=== PATIENT | male | born 1960 | race Caucasian/White ===

== ENCOUNTER → 2016-08-11 | Outpatient (CLI) | payer MEDICARE, MEDICAID ==
[~2016-08-11] MED LIST: ALPR2TAB2 PO; FLOMAX PO; LEVOTYROXINE; OME40GT
[2016-08-11 11:45] VITALS: BP 118/92
[2016-08-11 12:25] VITALS: BP 122/88
== END | disposition home or self-care (01) ==
LOC: CHF HDHVI 11:48
PROVIDERS: ATTEND Internal Medicine Cardiovascular Disease
DX: K85.90 Acute pancreatitis without necrosis or infection, unspecified (principal); I12.9 Hypertensive chronic kidney disease with stage 1 through stage 4 chronic kidney disease, or unspecified chronic kidney disease; E78.00 Pure hypercholesterolemia, unspecified; N18.3 Chronic kidney disease, stage 3 (moderate); E55.9 Vitamin D deficiency, unspecified
CPT/HCPCS: 82962; 99195; G0463

== ENCOUNTER → 2016-08-12 | Outpatient (CLI) | payer MEDICARE, MEDICAID ==
[2016-08-12 10:25] VITALS: BP 129/86
[2016-08-12 11:45] VITALS: BP 124/90
== END | disposition home or self-care (01) ==
LOC: CHF HDHVI 09:37
PROVIDERS: ATTEND Internal Medicine Cardiovascular Disease
DX: K85.90 Acute pancreatitis without necrosis or infection, unspecified (principal); I10 Essential (primary) hypertension
CPT/HCPCS: 99195; G0463

== ENCOUNTER → 2016-08-20 | Outpatient (CLI) | payer MEDICARE, MEDICAID ==
[2016-08-20 09:10] VITALS: BP 119/75
[2016-08-20 09:30] VITALS: BP 120/76
[2016-08-20 12:29] LABS: Basophils # (auto) 0 uL; Basophils % (auto) 0.3 % (0.0-2.0); Eosinophils # (auto) 0.3 uL; Eosinophils % (auto) 4.9 % (0.0-7.0); Hematocrit 48.9 % (41.0-53.0); Hemoglobin 16.4 g/dL (13.5-17.5); Lymphocytes # (auto) 1.5 uL; Lymphocytes % (auto) 22.3 % (10.0-50.0); Mean Corpuscular Hemoglobin 29.8 pg (28.0-32.0); Mean Corpuscular Hgb Conc. 33.5 g/dL (32.0-36.0); Mean Corpuscular Volume 88.9 fL (80.0-100.0); Mean Platelet Volume 9.1 fL (7.4-10.4); Monocytes # (auto) 0.6 uL; Monocytes % (auto) 8.9 % (0.0-12.0); Neutrophils # (auto) 4.2 uL; Neutrophils % (auto) 63.6 % (37.0-80.0); Platelet Count (auto) 280 10^3/uL (140-450); Red Cell Distribution Width 13.8 % (11.6-16.0); White Blood Cell 6.6 10^3/uL (4.4-10.8)
[2016-08-20 13:01] LABS: Albumin 3.6 g/dL (3.4-5.0); BUN/Creatinine Ratio 12.4; Bilirubin, Total 0.6 mg/dL (0.2-1.0); Calcium 8.8 mg/dL (8.5-10.1); Magnesium 2.8 mg/dL (1.6-2.6); Total Protein 7.3 g/dL (6.4-8.2)
== END | disposition home or self-care (01) ==
LOC: CHF HDHVI 09:04
PROVIDERS: ATTEND Internal Medicine Cardiovascular Disease
DX: I10 Essential (primary) hypertension (principal); E83.42 Hypomagnesemia; D51.9 Vitamin B12 deficiency anemia, unspecified; E55.9 Vitamin D deficiency, unspecified; D64.9 Anemia, unspecified
CPT/HCPCS: 36415; 80053; 82306; 82607; 83735; 85025; G0463

== ENCOUNTER → 2016-09-30 | Outpatient (CLI) | payer MEDICARE, MEDICAID ==
[2016-09-30 12:32] LABS: Basophils # (auto) 0 uL; Basophils % (auto) 0.5 % (0.0-2.0); Eosinophils # (auto) 0.2 uL; Eosinophils % (auto) 3.2 % (0.0-7.0); Hematocrit 48.1 % (41.0-53.0); Hemoglobin 16.1 g/dL (13.5-17.5); Lymphocytes # (auto) 1.4 uL; Lymphocytes % (auto) 30.3 % (10.0-50.0); Mean Corpuscular Hemoglobin 28.5 pg (28.0-32.0); Mean Corpuscular Hgb Conc. 33.5 g/dL (32.0-36.0); Mean Corpuscular Volume 85.3 fL (80.0-100.0); Mean Platelet Volume 8.1 fL (7.4-10.4); Monocytes # (auto) 0.5 uL; Monocytes % (auto) 10.8 % (0.0-12.0); Neutrophils # (auto) 2.6 uL; Neutrophils % (auto) 55.2 % (37.0-80.0); Platelet Count (auto) 318 10^3/uL (140-450); Red Cell Distribution Width 12.9 % (11.6-16.0); White Blood Cell 4.8 10^3/uL (4.4-10.8)
[2016-09-30 12:43] LABS: Urine Bilirubin Negative (Negative); Urine Blood Negative /uL (Negative); Urine Color Yellow (Yellow); Urine Glucose Normal (Normal); Urine Ketone Negative (Negative); Urine Nitrite Negative (Negative); Urine Urobilinogen Normal (Negative); Urine pH 5.5 (5.0-8.0)
[2016-09-30 13:07] LABS: Albumin 3.8 g/dL (3.4-5.0); Anion Gap 10 (5-15); BUN/Creatinine Ratio 15.3; Blood Urea Nitrogen 17 mg/dL (7-18); Calcium 8.5 mg/dL (8.5-10.1); Carbon Dioxide 26 mmol/L (21-32); Chloride 106 mmol/L (98-107); GFR African American 88 mL/min; GFR Non-African American 72 mL/min; Glucose 86 mg/dL (74-106); Sodium 142 mmol/L (136-145)
[2016-09-30 13:23] LABS: Alkaline Phosphatase 129 U/L (45-117); Aspartate Aminotransferase 23 U/L (15-37); Bilirubin, Total 0.5 mg/dL (0.2-1.0); Total Protein 7.6 g/dL (6.4-8.2)
[2016-09-30 17:32] LABS: Bilirubin, Direct < 0.1 mg/dL (0-0.2); Cholesterol 165 mg/dL (< 200); HDL Cholesterol 54 mg/dL (40-59); LDL Cholesterol 104 mg/dL (< 100); Triglycerides 106 mg/dL (< 150)
== END | disposition home or self-care (01) ==
LOC: LABCORP 08:03
PROVIDERS: ATTEND Internal Medicine Cardiovascular Disease
DX: I10 Essential (primary) hypertension (principal); E78.00 Pure hypercholesterolemia, unspecified; K74.1 Hepatic sclerosis; E11.9 Type 2 diabetes mellitus without complications; R97.20 Elevated prostate specific antigen [PSA]; R53.81 Other malaise; E03.9 Hypothyroidism, unspecified; D64.9 Anemia, unspecified; E55.9 Vitamin D deficiency, unspecified; N39.0 Urinary tract infection, site not specified; Z13.0 Encounter for screening for diseases of the blood and blood-forming organs and certain disorders involving the immune mechanism
CPT/HCPCS: 36415; 80048; 80061; 80076; 81003; 82306; 83036; 84153; 84403; 84443; 85025; 85652; 86038; 86141; 86225; 86431

== ENCOUNTER → 2016-10-29 | Outpatient (CLI) | payer MEDICARE, MEDICAID ==
[2016-10-29 10:31] LABS: Albumin 3.7 g/dL (3.4-5.0); BUN/Creatinine Ratio 19.6; Bilirubin, Total 0.5 mg/dL (0.2-1.0); Calcium 8.6 mg/dL (8.5-10.1); Potassium 4.1 mmol/L (3.5-5.1); Total Protein 7.1 g/dL (6.4-8.2)
[2016-10-29 10:50] LABS: Basophils # (auto) 0 uL; Basophils % (auto) 0.4 % (0.0-2.0); CONDITION Y; Eosinophils # (auto) 0.1 uL; Hematocrit 47.2 % (41.0-53.0); Hemoglobin 15.7 g/dL (13.5-17.5); Lymphocytes # (auto) 1.6 uL; Lymphocytes % (auto) 32.4 % (10.0-50.0); Mean Corpuscular Hemoglobin 28.2 pg (28.0-32.0); Mean Corpuscular Hgb Conc. 33.3 g/dL (32.0-36.0); Mean Corpuscular Volume 84.8 fL (80.0-100.0); Mean Platelet Volume 7.9 fL (7.4-10.4); Monocytes # (auto) 0.4 uL; Neutrophils # (auto) 2.7 uL; Neutrophils % (auto) 55.2 % (37.0-80.0); Platelet Count (auto) 317 10^3/uL (140-450); Red Cell Distribution Width 13.4 % (11.6-16.0); White Blood Cell 4.8 10^3/uL (4.4-10.8)
== END | disposition home or self-care (01) ==
LOC: Rad HDHVI 08:57
PROVIDERS: ATTEND Internal Medicine Cardiovascular Disease
DX: I10 Essential (primary) hypertension (principal); D64.9 Anemia, unspecified; R70.0 Elevated erythrocyte sedimentation rate; K72.90 Hepatic failure, unspecified without coma
CPT/HCPCS: 36415; 77078; 80053; 82140; 85025; 85652; 86141

== ENCOUNTER → 2016-11-14 | Outpatient (CLI) | payer MEDICARE, MEDICAID ==
[2016-11-14 12:30] LABS: Basophils # (auto) 0 uL; CONDITION Y; Eosinophils # (auto) 0.1 uL; Eosinophils % (auto) 1.6 % (0.0-7.0); Hematocrit 48.8 % (41.0-53.0); Hemoglobin 16.4 g/dL (13.5-17.5); Lymphocytes # (auto) 1.3 uL; Lymphocytes % (auto) 25.8 % (10.0-50.0); Mean Corpuscular Hemoglobin 28.3 pg (28.0-32.0); Mean Corpuscular Hgb Conc. 33.6 g/dL (32.0-36.0); Mean Corpuscular Volume 84.3 fL (80.0-100.0); Mean Platelet Volume 8.4 fL (7.4-10.4); Monocytes # (auto) 0.5 uL; Monocytes % (auto) 9.2 % (0.0-12.0); Neutrophils # (auto) 3.3 uL; Neutrophils % (auto) 63.4 % (37.0-80.0); Platelet Count (auto) 337 10^3/uL (140-450); Red Cell Distribution Width 13.5 % (11.6-16.0); White Blood Cell 5.2 10^3/uL (4.4-10.8)
[2016-11-14 12:46] LABS: Urine Bilirubin Negative (Negative); Urine Blood Negative /uL (Negative); Urine Color Yellow (Yellow); Urine Glucose Normal (Normal); Urine Ketone Negative (Negative); Urine Nitrite Negative (Negative); Urine RBC 1 /hpf (0 - 3); Urine Urobilinogen Normal (Negative); Urine pH 5.5 (5.0-8.0)
[2016-11-14 12:50] LABS: BUN/Creatinine Ratio 16.2; Bilirubin, Total 0.7 mg/dL (0.2-1.0); Potassium 4.3 mmol/L (3.5-5.1); Total Protein 7.7 g/dL (6.4-8.2)
== END | disposition home or self-care (01) ==
LOC: LAB 09:14
PROVIDERS: ATTEND Internal Medicine Cardiovascular Disease
DX: I10 Essential (primary) hypertension (principal); R79.82 Elevated C-reactive protein (CRP); D64.9 Anemia, unspecified; N39.0 Urinary tract infection, site not specified
CPT/HCPCS: 36415; 80053; 81001; 85025; 86141; 87086

== ENCOUNTER → 2017-02-02 | Outpatient (CLI) | payer MEDICARE, MEDICAID ==
[2017-02-02 09:15] VITALS: BP 130/85
[2017-02-02 10:13] VITALS: BP 130/85
[2017-02-02 13:39] LABS: Albumin 3.5 g/dL (3.4-5.0); Bilirubin, Direct 0.1 mg/dL (0-0.2); Bilirubin, Total 0.4 mg/dL (0.2-1.0); Magnesium 2.6 mg/dL (1.6-2.6)
== END | disposition home or self-care (01) ==
LOC: CHF HDHVI 09:20
PROVIDERS: ATTEND Internal Medicine Cardiovascular Disease
DX: K74.1 Hepatic sclerosis (principal); E83.42 Hypomagnesemia
CPT/HCPCS: 36415; 80076; 83735; 93005; G0463

== ENCOUNTER → 2017-04-15 | Outpatient (CLI) | payer MEDICARE, MEDICAID | END | disposition home or self-care (01) | LOC: Rad HDHVI 09:46 | PROVIDERS: ATTEND Internal Medicine Cardiovascular Disease | DX: K74.60 Unspecified cirrhosis of liver (principal) | CPT/HCPCS: 36415; 82248 ==

== ENCOUNTER → 2017-04-30 | Outpatient (CLI) | payer MEDICARE, MEDICAID ==
[~2017-04-30] VITALS: Ht 172.7 cm; Wt 88.5 kg
== END | disposition home or self-care (01) ==
LOC: Rad HDHVI 13:34
PROVIDERS: ATTEND Internal Medicine Cardiovascular Disease
DX: K74.60 Unspecified cirrhosis of liver (principal); N40.1 Benign prostatic hyperplasia with lower urinary tract symptoms; R33.9 Retention of urine, unspecified; I10 Essential (primary) hypertension; J44.9 Chronic obstructive pulmonary disease, unspecified
CPT/HCPCS: 78452; 93017; 96374; A9500

== ENCOUNTER 2017-06-12 19:52 | Emergency (ER) | payer MEDICARE, MEDICAID ==
[~2017-06-12] VITALS: Ht 175.3 cm; Wt 86.2 kg
[2017-06-12 20:15] VITALS: BP 141/92
== END 2017-06-13 01:55 | disposition left against medical advice (07) ==
LOC: ER 19:52
DX: R07.9 Chest pain, unspecified (principal); Z53.21 Procedure and treatment not carried out due to patient leaving prior to being seen by health care provider
CPT/HCPCS: 71046; 93005

== ENCOUNTER → 2017-07-07 | Outpatient (CLI) | payer MEDICARE, MEDICAID ==
[2017-07-07 11:36] LABS: Basophils # (auto) 0.1 uL; Basophils % (auto) 0.9 % (0.0-2.0); Eosinophils # (auto) 0.2 uL; Hematocrit 49.4 % (41.0-53.0); Hemoglobin 16.5 g/dL (13.5-17.5); Lymphocytes # (auto) 1.5 uL; Lymphocytes % (auto) 26.1 % (10.0-50.0); Mean Corpuscular Hemoglobin 28.7 pg (28.0-32.0); Mean Corpuscular Hgb Conc. 33.3 g/dL (32.0-36.0); Mean Corpuscular Volume 86.2 fL (80.0-100.0); Monocytes # (auto) 0.6 uL; Monocytes % (auto) 10.2 % (0.0-12.0); Neutrophils # (auto) 3.4 uL; Neutrophils % (auto) 59.8 % (37.0-80.0); Platelet Count (auto) 283 10^3/uL (140-450); Red Blood Cells 5.73 10^6/uL (4.5-5.90); Red Cell Distribution Width 14.4 % (11.8-14.3); White Blood Cell 5.8 10^3/uL (4.4-10.8)
[2017-07-07 11:45] LABS: INR 0.94 (0.9-1.15); Partial Thromboplastin Time 25.7 sec (22.64-33.71); Prothrombin Time 10.2 sec (9.37-12.3)
[2017-07-07 11:51] LABS: Albumin 3.7 g/dL (3.4-5.0); BUN/Creatinine Ratio 14.9; Bilirubin, Total 0.5 mg/dL (0.2-1.0); Calcium 8.6 mg/dL (8.5-10.1); Potassium 3.9 mmol/L (3.5-5.1); Total Protein 7.4 g/dL (6.4-8.2)
== END | disposition home or self-care (01) ==
LOC: LAB 11:07
PROVIDERS: ATTEND Psychiatry & Neurology Neurology
DX: I63.9 Cerebral infarction, unspecified (principal); H81.10 Benign paroxysmal vertigo, unspecified ear; F41.9 Anxiety disorder, unspecified; J44.9 Chronic obstructive pulmonary disease, unspecified; Z79.899 Other long term (current) drug therapy
CPT/HCPCS: 36415; 80053; 80061; 82306; 82607; 84443; 85025; 85610; 85730

== ENCOUNTER → 2017-07-31 | Outpatient (CLI) | payer MEDICARE, MEDICAID ==
[~2017-07-31] MED LIST changes: +IOHEXOL 350 MG/ML 100ML IJ ONE; +READI-CAT 2 (BARIUM SULF)(VANILLA SMOOTHIE) 450ML ONE
[2017-07-31 12:25] VITALS: BP 144/91
[2017-07-31 13:10] VITALS: BP 141/92
== END | disposition home or self-care (01) ==
LOC: Rad HDHVI 12:06
PROVIDERS: ATTEND Internal Medicine Cardiovascular Disease
DX: K76.0 Fatty (change of) liver, not elsewhere classified (principal); J44.9 Chronic obstructive pulmonary disease, unspecified; E11.22 Type 2 diabetes mellitus with diabetic chronic kidney disease; I12.9 Hypertensive chronic kidney disease with stage 1 through stage 4 chronic kidney disease, or unspecified chronic kidney disease; N18.3 Chronic kidney disease, stage 3 (moderate); N40.0 Benign prostatic hyperplasia without lower urinary tract symptoms; Z79.899 Other long term (current) drug therapy
CPT/HCPCS: 74177; 82565; G0463; Q9967

== ENCOUNTER → 2017-08-26 | Outpatient (CLI) | payer MEDICARE, MEDICAID ==
[~2017-08-26] MED LIST changes: -IOHEXOL 350 MG/ML 100ML IJ ONE; -READI-CAT 2 (BARIUM SULF)(VANILLA SMOOTHIE) 450ML ONE
[2017-08-26 16:59] LABS: BUN/Creatinine Ratio 10.5; Calcium 8.8 mg/dL (8.5-10.1)
[2017-08-26 17:05] LABS: Bilirubin, Total 0.7 mg/dL (0.2-1.0); Potassium 4.3 mmol/L (3.5-5.1)
== END | disposition home or self-care (01) ==
LOC: LAB 15:45
PROVIDERS: ATTEND Emergency Medicine
DX: I12.9 Hypertensive chronic kidney disease with stage 1 through stage 4 chronic kidney disease, or unspecified chronic kidney disease (principal); E11.22 Type 2 diabetes mellitus with diabetic chronic kidney disease; N18.3 Chronic kidney disease, stage 3 (moderate); E03.9 Hypothyroidism, unspecified; E21.4 Other specified disorders of parathyroid gland; R82.99 Other abnormal findings in urine
CPT/HCPCS: 36415; 80053; 82530; 83835; 84439; 84443

== ENCOUNTER → 2017-10-16 | Outpatient (CLI) | payer MEDICARE, MEDICAID ==
[~2017-10-16] MED LIST changes: +ALPR1TAB2 PO; +ATEN-60 PO; +DEXL60CA3 PO; +LEVO125T66 PO; +TAM04C PO
[2017-10-16 11:00] VITALS: BP 120/86
[2017-10-16 11:45] VITALS: BP 125/78
[2017-10-16 15:44] LABS: BUN/Creatinine Ratio 16.5; Calcium 8.6 mg/dL (8.5-10.1); Potassium 3.9 mmol/L (3.5-5.1)
[2017-10-16 15:56] LABS: INR 0.94 (0.9-1.15); Prothrombin Time 10.1 sec (9.27-12.13)
[2017-10-16 15:58] LABS: Basophils # (auto) 0 uL; Basophils % (auto) 0.6 % (0.0-2.0); Eosinophils # (auto) 0.1 uL; Eosinophils % (auto) 3.5 % (0.0-7.0); Hematocrit 47.1 % (41.0-53.0); Hemoglobin 15.9 g/dL (13.5-17.5); Lymphocytes # (auto) 1.3 uL; Lymphocytes % (auto) 33.3 % (10.0-50.0); Mean Corpuscular Hemoglobin 29.1 pg (28.0-32.0); Mean Corpuscular Hgb Conc. 33.8 g/dL (32.0-36.0); Monocytes # (auto) 0.5 uL; Neutrophils % (auto) 49.6 % (37.0-80.0); Nucleated Red Blood Cells % 0.7 %; Platelet Count (auto) 253 10^3/uL (140-450); Red Blood Cells 5.48 10^6/uL (4.5-5.90); Red Cell Distribution Width 14.3 % (11.8-14.3)
== END | disposition home or self-care (01) ==
LOC: Rad HDHVI 10:55
PROVIDERS: ATTEND Internal Medicine Cardiovascular Disease
DX: Z01.818 Encounter for other preprocedural examination (principal); I70.0 Atherosclerosis of aorta; I12.9 Hypertensive chronic kidney disease with stage 1 through stage 4 chronic kidney disease, or unspecified chronic kidney disease; E11.22 Type 2 diabetes mellitus with diabetic chronic kidney disease; N18.3 Chronic kidney disease, stage 3 (moderate); E03.9 Hypothyroidism, unspecified; J44.9 Chronic obstructive pulmonary disease, unspecified; Z79.899 Other long term (current) drug therapy
CPT/HCPCS: 36415; 71046; 80048; 85025; 85610; 85730; 93005; G0463

== ENCOUNTER 2017-10-19 18:48 | Emergency (ER) | payer MEDICARE, MEDICAID ==
[~2017-10-19] VITALS: Ht 172.7 cm; Wt 88.9 kg
[~2017-10-19 18:48] MED LIST changes: -ALPR2TAB2 PO; -FLOMAX PO; -LEVOTYROXINE; -OME40GT
[2017-10-19 20:26] LABS: Urine Bacteria NONE SEEN /hpf (None Seen); Urine Blood Negative /uL (Negative); Urine Specific Gravity 1.013 (1.001-1.035); Urine Sperm PRESENT /hpf (None Seen); Urine WBC <1 /hpf (0 - 3)
[2017-10-19 20:28] LABS: Basophils # (auto) 0.1 uL; Basophils % (auto) 0.8 % (0.0-2.0); Eosinophils # (auto) 0.1 uL; Hematocrit 49.7 % (41.0-53.0); Hemoglobin 16.6 g/dL (13.5-17.5); Lymphocytes # (auto) 1.6 uL; Lymphocytes % (auto) 23.5 % (10.0-50.0); Mean Corpuscular Hemoglobin 28.7 pg (28.0-32.0); Mean Corpuscular Hgb Conc. 33.3 g/dL (32.0-36.0); Mean Corpuscular Volume 86.2 fL (80.0-100.0); Monocytes # (auto) 0.8 uL; Monocytes % (auto) 11.3 % (0.0-12.0); Neutrophils # (auto) 4.4 uL; Neutrophils % (auto) 63.4 % (37.0-80.0); Nucleated Red Blood Cells % 0.2 %; Platelet Count (auto) 278 10^3/uL (140-450); Red Blood Cells 5.77 10^6/uL (4.5-5.90); White Blood Cell 6.9 10^3/uL (4.4-10.8)
[2017-10-19 20:36] LABS: Alanine Aminotransferase 45 U/L (16-61); Alkaline Phosphatase 95 U/L (45-117); Anion Gap 8 (5-15); Aspartate Aminotransferase 17 U/L (15-37); BUN/Creatinine Ratio 9.8; Bilirubin, Total 0.3 mg/dL (0.2-1.0); Blood Urea Nitrogen 12 mg/dL (7-18); Calcium 8.8 mg/dL (8.5-10.1); Carbon Dioxide 25 mmol/L (21-32); Chloride 107 mmol/L (98-107); GFR African American 77 mL/min; GFR Non-African American 64 mL/min; Glucose 98 mg/dL (74-106); Potassium 3.9 mmol/L (3.5-5.1); Sodium 140 mmol/L (136-145); Total Protein 7.7 g/dL (6.4-8.2)
[2017-10-20 00:09] VITALS: BP 142/96
== END 2017-10-20 00:20 | disposition home or self-care (01) ==
LOC: ER 18:48
DX: F41.9 Anxiety disorder, unspecified (principal); K76.0 Fatty (change of) liver, not elsewhere classified; K60.3 Anal fistula; I10 Essential (primary) hypertension; Z88.0 Allergy status to penicillin; Z88.2 Allergy status to sulfonamides
CPT/HCPCS: 36415; 71046; 80053; 81001; 84484; 85025; 93005

== ENCOUNTER → 2017-11-12 | Outpatient (CLI) | payer MEDICARE, MEDICAID ==
[~2017-11-12] VITALS: Ht 1 cm; Wt 0.5 kg
[~2017-11-12] MED LIST changes: +KETOROLAC TROMETH 30 MG/ML 1ML VIAL IV ONE; +KETOROLAC TROMETH 60MG/2ML VIAL IM ONE; +LOSA25TA9 PO
[2017-11-12 16:18] LABS: Albumin 3.3 g/dL (3.4-5.0); BUN/Creatinine Ratio 11.7; Basophils # (auto) 0.1 uL; Basophils % (auto) 0.7 % (0.0-2.0); Calcium 8.2 mg/dL (8.5-10.1); Eosinophils # (auto) 0.2 uL; Hematocrit 43.9 % (41.0-53.0); Hemoglobin 14.7 g/dL (13.5-17.5); Lymphocytes # (auto) 1.4 uL; Lymphocytes % (auto) 17.3 % (10.0-50.0); Mean Corpuscular Hemoglobin 29.2 pg (28.0-32.0); Mean Corpuscular Hgb Conc. 33.4 g/dL (32.0-36.0); Mean Corpuscular Volume 87.3 fL (80.0-100.0); Monocytes % (auto) 11.9 % (0.0-12.0); Neutrophils # (auto) 5.4 uL; Neutrophils % (auto) 67.1 % (37.0-80.0); Nucleated Red Blood Cells % 0.4 %; Platelet Count (auto) 299 10^3/uL (140-450); Red Blood Cells 5.03 10^6/uL (4.5-5.90); Red Cell Distribution Width 13.8 % (11.8-14.3)
[2017-11-12 16:20] LABS: Bilirubin, Total 0.4 mg/dL (0.2-1.0); Total Protein 7.5 g/dL (6.4-8.2)
== END | disposition home or self-care (01) ==
LOC: CHF HDHVI 13:35
PROVIDERS: ATTEND Internal Medicine
DX: C61 Malignant neoplasm of prostate (principal); D64.9 Anemia, unspecified; N40.0 Benign prostatic hyperplasia without lower urinary tract symptoms; I12.9 Hypertensive chronic kidney disease with stage 1 through stage 4 chronic kidney disease, or unspecified chronic kidney disease; E11.22 Type 2 diabetes mellitus with diabetic chronic kidney disease; N18.3 Chronic kidney disease, stage 3 (moderate); E03.9 Hypothyroidism, unspecified; F41.9 Anxiety disorder, unspecified; I70.0 Atherosclerosis of aorta; J44.9 Chronic obstructive pulmonary disease, unspecified; Z79.899 Other long term (current) drug therapy
CPT/HCPCS: 36415; 80053; 84153; 85025; 96372; 96374; G0463; J1885

== ENCOUNTER 2017-11-27 17:14 | Inpatient (IN) | payer MEDICARE, MEDICAID ==
[~2017-11-27] VITALS: Ht 175.3 cm; Wt 85.1 kg
[~2017-11-27 17:14] MED LIST changes: -KETOROLAC TROMETH 30 MG/ML 1ML VIAL IV ONE; -KETOROLAC TROMETH 60MG/2ML VIAL IM ONE; -LOSA25TA9 PO
[2017-11-27] MEDS ORDERED: SODIUM CHLORIDE 0.9% 1,000 ML IVB ONE (17:42)
[2017-11-27] MEDS ORDERED: ONDANSETRON HCL 4 MG/2 ML VIAL IV ONE (17:45)
[2017-11-27 18:34] LABS: Basophils # (auto) 0 uL; Basophils % (auto) 0.8 % (0.0-2.0); Eosinophils # (auto) 0.2 uL; Eosinophils % (auto) 3.9 % (0.0-7.0); Hematocrit 43.5 % (41.0-53.0); Hemoglobin 14.5 g/dL (13.5-17.5); Lymphocytes # (auto) 1.7 uL; Lymphocytes % (auto) 29.6 % (10.0-50.0); Mean Corpuscular Hemoglobin 28.9 pg (28.0-32.0); Mean Corpuscular Hgb Conc. 33.3 g/dL (32.0-36.0); Mean Corpuscular Volume 86.7 fL (80.0-100.0); Monocytes # (auto) 0.5 uL; Monocytes % (auto) 9.6 % (0.0-12.0); Neutrophils # (auto) 3.2 uL; Neutrophils % (auto) 56.1 % (37.0-80.0); Nucleated Red Blood Cells % 0.1 %; Platelet Count (auto) 329 10^3/uL (140-450); Red Blood Cells 5.02 10^6/uL (4.5-5.90); Red Cell Distribution Width 14.3 % (11.8-14.3); White Blood Cell 5.7 10^3/uL (4.4-10.8)
[2017-11-27 18:50] LABS: INR 0.92 (0.9-1.15); Partial Thromboplastin Time 25.7 sec (23.78-33.04); Prothrombin Time 9.9 sec (9.27-12.13)
[2017-11-27 19:04] LABS: Alanine Aminotransferase 30 U/L (16-61); Albumin 3.3 g/dL (3.4-5.0); Alkaline Phosphatase 78 U/L (45-117); Amylase 89 U/L (25-115); Anion Gap 8 (5-15); Aspartate Aminotransferase 14 U/L (15-37); Bilirubin, Total 0.2 mg/dL (0.2-1.0); Blood Urea Nitrogen 14 mg/dL (7-18); Calcium 8.4 mg/dL (8.5-10.1); Carbon Dioxide 22 mmol/L (21-32); Chloride 110 mmol/L (98-107); GFR African American 98 mL/min; GFR Non-African American 81 mL/min; Glucose 99 mg/dL (74-106); Lipase 346 U/L (73-393); Magnesium 2.4 mg/dL (1.6-2.6); Potassium 3.6 mmol/L (3.5-5.1); Sodium 140 mmol/L (136-145); Total Protein 6.7 g/dL (6.4-8.2)
[2017-11-27 20:08] LABS: Urine Bacteria NONE SEEN /hpf (None Seen); Urine Blood Negative /uL (Negative); Urine Specific Gravity 1.007 (1.001-1.035); Urine WBC <1 /hpf (0 - 3)
[2017-11-27] MEDS ORDERED: CHOLESTYRAMINE 4 GM POWDER PO ONE (21:00)
[2017-11-27 21:37] LABS: Basophils # (auto) 0 uL; Basophils % (auto) 0.6 % (0.0-2.0); Eosinophils # (auto) 0.2 uL; Eosinophils % (auto) 3.2 % (0.0-7.0); Hematocrit 37.8 % (41.0-53.0); Hemoglobin 12.6 g/dL (13.5-17.5); Lymphocytes # (auto) 1.6 uL; Lymphocytes % (auto) 29.1 % (10.0-50.0); Mean Corpuscular Hemoglobin 29.4 pg (28.0-32.0); Mean Corpuscular Hgb Conc. 33.5 g/dL (32.0-36.0); Mean Corpuscular Volume 87.9 fL (80.0-100.0); Monocytes # (auto) 0.5 uL; Monocytes % (auto) 9.6 % (0.0-12.0); Neutrophils # (auto) 3.2 uL; Neutrophils % (auto) 57.5 % (37.0-80.0); Nucleated Red Blood Cells % 0.1 %; Platelet Count (auto) 262 10^3/uL (140-450); Red Cell Distribution Width 14.4 % (11.8-14.3); White Blood Cell 5.5 10^3/uL (4.4-10.8)
[2017-11-27 22:00] VITALS: BP 124/90
[2017-11-27] MEDS ORDERED: metroNIDAZOLE 500 MG TAB PO ONE (22:00)
[2017-11-27] MEDS ORDERED: FAMOTIDINE 20 MG TAB PO ONE (22:00)
[2017-11-27 22:02] LABS: Albumin 2.6 g/dL (3.4-5.0); BUN/Creatinine Ratio 15.8; Potassium 3.7 mmol/L (3.5-5.1)
[2017-11-27 22:05] LABS: Bilirubin, Total 0.2 mg/dL (0.2-1.0); Total Protein 5.4 g/dL (6.4-8.2)
[2017-11-27] MEDS: SODIUM CHLORIDE 0.9% 1,000 ML IV SCH (22:16)
[2017-11-27] MEDS: FAMOTIDINE 20 MG TAB PO SCH (22:16)
[2017-11-27 22:47] VITALS: BP 124/90
[2017-11-27] MEDS: CHOLESTYRAMINE 4 GM POWDER PO SCH (22:56)
[2017-11-27] MEDS: metroNIDAZOLE 500MG/100ML 100 ML IV SCH (23:56)
[2017-11-28] MEDS ORDERED: LOSA25TA9 PO (02:26)
[2017-11-28 05:05] VITALS: BP 136/85
[2017-11-28] MEDS: metroNIDAZOLE 500MG/100ML 100 ML IV SCH (05:55)
[2017-11-28 08:43] VITALS: BP 130/79
[2017-11-28] MEDS: FAMOTIDINE 20 MG TAB PO SCH ×2 (10:00→22:00)
[2017-11-28] MEDS: SODIUM CHLORIDE 0.9% 1,000 ML IV SCH ×2 (10:41→17:40)
[2017-11-28] MEDS: CHOLESTYRAMINE 4 GM POWDER PO SCH ×2 (10:41→23:00)
[2017-11-28 12:30] VITALS: BP 128/82
[2017-11-28] MEDS: metroNIDAZOLE 500 MG TAB PO SCH ×2 (14:01→22:23)
[2017-11-28 17:05] VITALS: BP 125/80
[2017-11-28 22:00] VITALS: BP 103/69
[2017-11-28 23:00] VITALS: BP 112/70
[2017-11-29 05:42] VITALS: BP 122/69
[2017-11-29] MEDS: metroNIDAZOLE 500 MG TAB PO SCH ×3 (05:55→21:48)
[2017-11-29] MEDS: SODIUM CHLORIDE 0.9% 1,000 ML IV SCH ×3 (05:55→21:49)
[2017-11-29 08:46] VITALS: BP 137/88
[2017-11-29 10:44] LABS: Basophils # (auto) 0 uL; Basophils % (auto) 0.8 % (0.0-2.0); Eosinophils # (auto) 0.1 uL; Hematocrit 46.6 % (41.0-53.0); Hemoglobin 15.5 g/dL (13.5-17.5); Lymphocytes # (auto) 1.1 uL; Lymphocytes % (auto) 19.8 % (10.0-50.0); Mean Corpuscular Hemoglobin 28.8 pg (28.0-32.0); Mean Corpuscular Hgb Conc. 33.3 g/dL (32.0-36.0); Mean Corpuscular Volume 86.5 fL (80.0-100.0); Monocytes # (auto) 0.5 uL; Monocytes % (auto) 8.5 % (0.0-12.0); Neutrophils % (auto) 69.9 % (37.0-80.0); Platelet Count (auto) 304 10^3/uL (140-450); Red Blood Cells 5.39 10^6/uL (4.5-5.90); Red Cell Distribution Width 14.4 % (11.8-14.3); White Blood Cell 5.7 10^3/uL (4.4-10.8)
[2017-11-29] MEDS: FAMOTIDINE 20 MG TAB PO SCH ×2 (10:59→21:49)
[2017-11-29] MEDS: CHOLESTYRAMINE 4 GM POWDER PO SCH ×2 (11:04→21:49)
[2017-11-29 12:08] LABS: BUN/Creatinine Ratio 10.8; Calcium 8.2 mg/dL (8.5-10.1); Potassium 3.8 mmol/L (3.5-5.1)
[2017-11-29 12:38] VITALS: BP 128/76
[2017-11-29 17:00] VITALS: BP 133/93
[2017-11-29 22:00] VITALS: BP 127/86
[2017-11-30 05:00] VITALS: BP 130/77
[2017-11-30] MEDS: metroNIDAZOLE 500 MG TAB PO SCH ×3 (05:36→21:48)
[2017-11-30 09:00] VITALS: BP 134/84
[2017-11-30] MEDS: SODIUM CHLORIDE 0.9% 1,000 ML IV SCH ×2 (09:00→19:00)
[2017-11-30] MEDS: FAMOTIDINE 20 MG TAB PO SCH ×2 (10:00→21:49)
[2017-11-30] MEDS: CHOLESTYRAMINE 4 GM POWDER PO SCH ×2 (10:22→21:49)
[2017-11-30 13:00] VITALS: BP 117/76
[2017-11-30] MEDS ORDERED: GOLYTELY 4L KIT PO ONE (15:15)
[2017-11-30] MEDS ORDERED: LEVOTHYROXINE SODIUM 50 MCG TAB PO ONE (15:45)
[2017-11-30 17:00] VITALS: BP 140/93
[2017-11-30] MEDS ORDERED: IOHEXOL 350 MG/ML 100ML IJ ONE (17:59)
[2017-11-30 22:00] VITALS: BP 150/99
[2017-12-01] MEDS ORDERED: GOLYTELY 4L KIT PO ONE (04:00)
[2017-12-01 05:00] VITALS: BP 124/73
[2017-12-01] MEDS: SODIUM CHLORIDE 0.9% 1,000 ML IV SCH ×2 (05:00→14:16)
[2017-12-01] MEDS: metroNIDAZOLE 500 MG TAB PO SCH (05:22)
[2017-12-01] MEDS: LEVOTHYROXINE SODIUM 50 MCG TAB PO SCH (06:39)
[2017-12-01 08:00] VITALS: BP 132/87
[2017-12-01 08:46] VITALS: BP 132/87
[2017-12-01] MEDS: FAMOTIDINE 20 MG TAB PO SCH (10:00)
[2017-12-01] MEDS ORDERED: SODIUM CHLORIDE LOCK 10 ML ONE (10:59)
[2017-12-01] MEDS: CHOLESTYRAMINE 4 GM POWDER PO SCH ×2 (11:00→23:00)
[2017-12-01] MEDS ORDERED: diphenhdrAMINE HCL 50 MG/1 ML VL ONE (11:00)
[2017-12-01] MEDS: MIDAZOLAM HCL 5 MG/ML-1ML VIAL ONE ×3 (11:41→11:48)
[2017-12-01] MEDS: fentaNYL CITRATE 100 MCG/2 ML VL ONE ×3 (11:41→11:48)
[2017-12-01] MEDS ORDERED: HYOSCYAMINE SULF 0.125 MG TAB PO PRN (12:00)
[2017-12-01 17:00] VITALS: BP 127/73
[2017-12-01 21:54] VITALS: BP 124/79
[2017-12-02] MEDS: SODIUM CHLORIDE 0.9% 1,000 ML IV SCH ×3 (01:26→22:42)
[2017-12-02 05:29] VITALS: BP 109/68
[2017-12-02 05:32] VITALS: BP 109/68
[2017-12-02] MEDS: LEVOTHYROXINE SODIUM 50 MCG TAB PO SCH (06:54)
[2017-12-02 07:08] LABS: Basophils # (auto) 0 uL; Basophils % (auto) 0.5 % (0.0-2.0); Eosinophils # (auto) 0.2 uL; Eosinophils % (auto) 4.2 % (0.0-7.0); Hematocrit 42.2 % (41.0-53.0); Hemoglobin 14.5 g/dL (13.5-17.5); Lymphocytes # (auto) 1.3 uL; Lymphocytes % (auto) 25.2 % (10.0-50.0); Mean Corpuscular Hemoglobin 29.9 pg (28.0-32.0); Mean Corpuscular Hgb Conc. 34.4 g/dL (32.0-36.0); Mean Corpuscular Volume 86.9 fL (80.0-100.0); Monocytes # (auto) 0.6 uL; Monocytes % (auto) 11.4 % (0.0-12.0); Neutrophils # (auto) 3.1 uL; Neutrophils % (auto) 58.7 % (37.0-80.0); Nucleated Red Blood Cells % 0.1 %; Platelet Count (auto) 241 10^3/uL (140-450); Red Blood Cells 4.86 10^6/uL (4.5-5.90); Red Cell Distribution Width 14.5 % (11.8-14.3); White Blood Cell 5.3 10^3/uL (4.4-10.8)
[2017-12-02 07:26] LABS: BUN/Creatinine Ratio 13.5; Calcium 7.6 mg/dL (8.5-10.1)
[2017-12-02 07:52] VITALS: BP 119/76
[2017-12-02] MEDS: CHOLESTYRAMINE 4 GM POWDER PO SCH ×2 (11:00→22:42)
[2017-12-02 12:15] VITALS: BP 146/91
[2017-12-02 17:22] VITALS: BP 140/89
[2017-12-02 22:00] VITALS: BP 139/90
[2017-12-03 05:00] VITALS: BP 103/64
[2017-12-03] MEDS: LEVOTHYROXINE SODIUM 50 MCG TAB PO SCH (06:37)
[2017-12-03] MEDS: SODIUM CHLORIDE 0.9% 1,000 ML IV SCH (06:37)
[2017-12-03 08:42] VITALS: BP 127/84
[2017-12-03] MEDS: CHOLESTYRAMINE 4 GM POWDER PO SCH (11:26)
== END 2017-12-03 12:10 | disposition home or self-care (01) | DRG 392 ==
LOC: ER 17:14 → OVERFLOW 17:15 → EAST 21:53
PROVIDERS: ADMIT Internal Medicine Cardiovascular Disease; ATTEND Internal Medicine Cardiovascular Disease
PROC: 0DBE8ZX Excision of Large Intestine, Via Natural or Artificial Opening Endoscopic, Diagnostic (ICD-10-PCS; 2017-12-01)
PROC: 0DBH8ZX Excision of Cecum, Via Natural or Artificial Opening Endoscopic, Diagnostic (ICD-10-PCS; principal; 2017-12-01 11:39)
DX: A09 Infectious gastroenteritis and colitis, unspecified (principal); E86.0 Dehydration; K57.30 Diverticulosis of large intestine without perforation or abscess without bleeding; I10 Essential (primary) hypertension; K64.8 Other hemorrhoids; K64.4 Residual hemorrhoidal skin tags; B19.20 Unspecified viral hepatitis C without hepatic coma; K74.60 Unspecified cirrhosis of liver; K63.5 Polyp of colon; K76.0 Fatty (change of) liver, not elsewhere classified; Z88.0 Allergy status to penicillin; Z88.2 Allergy status to sulfonamides; Z87.442 Personal history of urinary calculi
CPT/HCPCS: 36415; 45380; 71045; 74176; 80048; 80053; 81001; 82040; 82150; 82784; 82962; 83516; 83690; 83735; 84484; 85025; 85610; 85730; 86255; 86850; 86900; 86901; 87081; 87493; 93005; 94761; 96361; 96374; J2250; J3490

== ENCOUNTER → 2017-12-22 | Outpatient (CLI) | payer MEDICARE, MEDICAID ==
[~2017-12-22] MED LIST changes: +LOSA25TA40 PO; -TAM04C PO
== END | disposition home or self-care (01) ==
LOC: Rad HDHVI 09:50
PROVIDERS: ATTEND Internal Medicine Cardiovascular Disease
DX: I73.9 Peripheral vascular disease, unspecified (principal); R42 Dizziness and giddiness; Z88.0 Allergy status to penicillin; Z88.2 Allergy status to sulfonamides
CPT/HCPCS: 93880; 93926

== ENCOUNTER → 2017-12-24 | Outpatient (CLI) | payer MEDICARE, MEDICAID ==
[~2017-12-24] MED LIST changes: -LOSA25TA40 PO; +LOSA25TA9 PO
== END | disposition home or self-care (01) ==
LOC: Rad HDHVI 10:50
PROVIDERS: ATTEND Internal Medicine Cardiovascular Disease
DX: M85.88 Other specified disorders of bone density and structure, other site (principal); I10 Essential (primary) hypertension; J44.9 Chronic obstructive pulmonary disease, unspecified
CPT/HCPCS: 77078

== ENCOUNTER → 2018-03-16 | Outpatient (CLI) | payer MEDICARE, MEDICAID ==
[~2018-03-16] MED LIST changes: +LOSA25TA40 PO; -LOSA25TA9 PO
[2018-03-16 16:12] LABS: Albumin 3.7 g/dL (3.4-5.0); Calcium 8.6 mg/dL (8.5-10.1); Potassium 4.2 mmol/L (3.5-5.1)
[2018-03-16 16:15] LABS: BUN/Creatinine Ratio 13.3; Bilirubin, Total 0.4 mg/dL (0.2-1.0); Total Protein 7.2 g/dL (6.4-8.2)
== END | disposition home or self-care (01) ==
LOC: Rad HDHVI 14:04
PROVIDERS: ATTEND Internal Medicine
DX: R06.02 Shortness of breath (principal); I10 Essential (primary) hypertension; R74.8 Abnormal levels of other serum enzymes; K74.1 Hepatic sclerosis
CPT/HCPCS: 36415; 71046; 80053; 82150; 83690

== ENCOUNTER → 2018-05-05 | Outpatient (CLI) | payer MEDICARE, MEDICAID ==
[2018-05-05 16:14] LABS: Urine Blood Negative /uL (Negative); Urine Specific Gravity 1.024 (1.001-1.035)
[2018-05-05 16:29] LABS: Calcium 8.5 mg/dL (8.5-10.1); Potassium 4.5 mmol/L (3.5-5.1)
[2018-05-05 16:34] LABS: Albumin 3.7 g/dL (3.4-5.0); BUN/Creatinine Ratio 14.8; Bilirubin, Total 0.5 mg/dL (0.2-1.0); Total Protein 7.6 g/dL (6.4-8.2)
[2018-05-05 16:38] LABS: Free T4 (Free Thyroxine) 3.07 ng/dL (0.89-1.76); Prostate Specific Antigen 1.12 ng/mL (0.0-4.0)
[2018-05-05 16:42] LABS: Basophils # (auto) 0.1 uL; Eosinophils # (auto) 0.2 uL; Eosinophils % (auto) 3.4 % (0.0-7.0); Hematocrit 49.8 % (41.0-53.0); Hemoglobin 16.7 g/dL (13.5-17.5); Lymphocytes # (auto) 1.7 uL; Lymphocytes % (auto) 31.7 % (10.0-50.0); Mean Corpuscular Hemoglobin 29.1 pg (28.0-32.0); Mean Corpuscular Hgb Conc. 33.6 g/dL (32.0-36.0); Mean Corpuscular Volume 86.8 fL (80.0-100.0); Monocytes # (auto) 0.5 uL; Monocytes % (auto) 8.9 % (0.0-12.0); Neutrophils # (auto) 2.9 uL; Nucleated Red Blood Cells % 0.2 %; Platelet Count (auto) 246 10^3/uL (140-450); Red Blood Cells 5.73 10^6/uL (4.5-5.90); Red Cell Distribution Width 14.8 % (11.8-14.3); White Blood Cell 5.3 10^3/uL (4.4-10.8)
== END | disposition home or self-care (01) ==
LOC: Rad HDHVI 10:45
PROVIDERS: ATTEND Internal Medicine Cardiovascular Disease
DX: I20.0 Unstable angina (principal); I11.9 Hypertensive heart disease without heart failure; R74.8 Abnormal levels of other serum enzymes; E03.9 Hypothyroidism, unspecified; E55.9 Vitamin D deficiency, unspecified; E11.9 Type 2 diabetes mellitus without complications; C61 Malignant neoplasm of prostate; E29.1 Testicular hypofunction; D51.9 Vitamin B12 deficiency anemia, unspecified; N39.0 Urinary tract infection, site not specified
CPT/HCPCS: 36415; 80053; 80061; 81003; 82150; 82306; 82607; 83036; 83690; 84153; 84403; 84439; 84443; 85025; 93306

== ENCOUNTER → 2018-05-06 | Outpatient (CLI) | payer MEDICARE, MEDICAID ==
[~2018-05-06] VITALS: Ht 172.7 cm; Wt 93.9 kg
== END | disposition home or self-care (01) ==
LOC: Rad HDHVI 13:39
PROVIDERS: ATTEND Internal Medicine Cardiovascular Disease
DX: I20.0 Unstable angina (principal); K74.60 Unspecified cirrhosis of liver; I10 Essential (primary) hypertension
CPT/HCPCS: 78452; 93017; 96374; A9500

== ENCOUNTER → 2018-08-24 | Outpatient (CLI) | payer MEDICARE, MEDICAID ==
[2018-08-24 12:39] LABS: Albumin 3.9 g/dL (3.4-5.0); Potassium 4.1 mmol/L (3.5-5.1)
[2018-08-24 12:41] LABS: BUN/Creatinine Ratio 14.5; Bilirubin, Total 0.6 mg/dL (0.2-1.0); Total Protein 7.3 g/dL (6.4-8.2)
== END | disposition home or self-care (01) ==
LOC: LAB 09:58
PROVIDERS: ATTEND Internal Medicine Gastroenterology
DX: R13.10 Dysphagia, unspecified (principal); R10.11 Right upper quadrant pain
CPT/HCPCS: 36415; 80053

== ENCOUNTER → 2018-09-24 | Outpatient (CLI) | payer MEDICARE, MEDICAID ==
[~2018-09-24] MED LIST changes: +ALBUTEROL SULF 2.5 MG/0.5ML(0.5%) NEB SOLN ONE
== END | disposition home or self-care (01) ==
LOC: RT 08:31
PROVIDERS: ATTEND Internal Medicine Pulmonary Disease
DX: J44.9 Chronic obstructive pulmonary disease, unspecified (principal)
CPT/HCPCS: 94010; J7611

== ENCOUNTER → 2018-10-06 | Outpatient (CLI) | payer MEDICARE, MEDICAID ==
[~2018-10-06] MED LIST changes: -ALBUTEROL SULF 2.5 MG/0.5ML(0.5%) NEB SOLN ONE
== END | disposition home or self-care (01) ==
LOC: LAB 09:48
PROVIDERS: ATTEND Internal Medicine Gastroenterology
DX: K76.0 Fatty (change of) liver, not elsewhere classified (principal); R13.10 Dysphagia, unspecified
CPT/HCPCS: 82705

== ENCOUNTER 2018-11-02 11:55 | Day surgery (SDC) | payer MEDICARE, MEDICAID ==
[2018-10-29 10:31] LABS: Basophils # (auto) 0 uL; Basophils % (auto) 0.8 % (0.0-2.0); Eosinophils # (auto) 0.2 uL; Eosinophils % (auto) 2.8 % (0.0-7.0); Hematocrit 48.2 % (41.0-53.0); Hemoglobin 16.5 g/dL (13.5-17.5); Lymphocytes # (auto) 1.4 uL; Lymphocytes % (auto) 26.8 % (10.0-50.0); Mean Corpuscular Hemoglobin 29.4 pg (28.0-32.0); Mean Corpuscular Hgb Conc. 34.1 g/dL (32.0-36.0); Mean Corpuscular Volume 86.2 fL (80.0-100.0); Monocytes # (auto) 0.6 uL; Neutrophils # (auto) 3.1 uL; Neutrophils % (auto) 58.6 % (37.0-80.0); Nucleated Red Blood Cells % 0.1 %; Platelet Count (auto) 237 10^3/uL (140-450); Red Cell Distribution Width 14.3 % (11.8-14.3); White Blood Cell 5.3 10^3/uL (4.4-10.8)
[2018-10-29 10:47] LABS: INR 0.93 (0.9-1.15); Partial Thromboplastin Time 25.9 sec (23.64-32.05)
[~2018-11-02] VITALS: Ht 172.7 cm; Wt 89.8 kg
[~2018-11-02 11:55] MED LIST changes: -LOSA25TA40 PO
[2018-11-02] MEDS: MIDAZOLAM HCL 5 MG/ML-1ML VIAL ONE ×2 (13:31→13:34)
[2018-11-02] MEDS ORDERED: LIDOCAINE VISCOUS 2% 15ML UD ONE (13:31)
[2018-11-02] MEDS: fentaNYL CITRATE 100 MCG/2 ML VL ONE ×2 (13:31→13:34)
[2018-11-02] MEDS ORDERED: diphenhdrAMINE HCL 50 MG/1 ML VL ONE (13:32)
[2018-11-02] MEDS ORDERED: SODIUM CHLORIDE LOCK 10 ML ONE (13:32)
[2018-11-02 14:03] VITALS: BP 119/79
== END 2018-11-02 14:13 | disposition home or self-care (01) ==
LOC: GI 11:55
PROVIDERS: ATTEND Internal Medicine Gastroenterology
DX: K29.50 Unspecified chronic gastritis without bleeding (principal); I10 Essential (primary) hypertension; K75.81 Nonalcoholic steatohepatitis (NASH); J44.9 Chronic obstructive pulmonary disease, unspecified; F32.9 Major depressive disorder, single episode, unspecified; F41.9 Anxiety disorder, unspecified; Z88.2 Allergy status to sulfonamides; Z88.0 Allergy status to penicillin; Z79.899 Other long term (current) drug therapy; Z98.890 Other specified postprocedural states
CPT/HCPCS: 36415; 43239; 85025; 85610; 85730; 88304; 88342; J1200; J2250; J3010; J7030

== ENCOUNTER → 2018-11-25 | Outpatient (CLI) | payer MEDICARE, MEDICAID ==
[2018-11-25 12:04] LABS: Urine Blood Negative /uL (Negative); Urine Specific Gravity 1.022 (1.001-1.035)
== END | disposition home or self-care (01) ==
LOC: LAB 10:59
PROVIDERS: ATTEND Internal Medicine Cardiovascular Disease
DX: N39.0 Urinary tract infection, site not specified (principal)
CPT/HCPCS: 81003; 87086

== ENCOUNTER 2018-11-26 08:19 | Emergency (ER) | payer MEDICARE, MEDICAID ==
[~2018-11-26] VITALS: Ht 175.3 cm; Wt 88.5 kg
[2018-11-26 08:52] VITALS: BP 146/91
[2018-11-26] MEDS ORDERED: KETOROLAC TROMETH 15 mg/ml 1ML VL IV ONE (09:00)
[2018-11-26 09:04] LABS: Urine Bacteria NONE SEEN /hpf (None Seen); Urine Blood Negative /uL (Negative); Urine Specific Gravity 1.015 (1.001-1.035); Urine WBC 1 /hpf (0 - 3)
[2018-11-26 09:05] LABS: Basophils # (auto) 0 uL; Basophils % (auto) 0.9 % (0.0-2.0); Eosinophils # (auto) 0.2 uL; Eosinophils % (auto) 3.3 % (0.0-7.0); Hematocrit 49.6 % (41.0-53.0); Hemoglobin 16.3 g/dL (13.5-17.5); Lymphocytes # (auto) 1.5 uL; Lymphocytes % (auto) 28.7 % (10.0-50.0); Mean Corpuscular Hemoglobin 28.5 pg (28.0-32.0); Mean Corpuscular Hgb Conc. 32.9 g/dL (32.0-36.0); Mean Corpuscular Volume 86.5 fL (80.0-100.0); Monocytes # (auto) 0.5 uL; Monocytes % (auto) 10.3 % (0.0-12.0); Neutrophils % (auto) 56.8 % (37.0-80.0); Nucleated Red Blood Cells % 0.1 %; Platelet Count (auto) 237 10^3/uL (140-450); Red Blood Cells 5.74 10^6/uL (4.5-5.90); Red Cell Distribution Width 13.9 % (11.8-14.3); White Blood Cell 5.3 10^3/uL (4.4-10.8)
[2018-11-26 09:19] LABS: Albumin 3.8 g/dL (3.4-5.0); BUN/Creatinine Ratio 15.5; Calcium 8.9 mg/dL (8.5-10.1); Potassium 4.4 mmol/L (3.5-5.1)
[2018-11-26 09:22] LABS: Bilirubin, Total 0.5 mg/dL (0.2-1.0); Total Protein 7.3 g/dL (6.4-8.2)
[2018-11-26] MEDS ORDERED: SODIUM CHLORIDE 0.9% 1,000 ML IV ONE (09:30)
== END 2018-11-26 10:06 | disposition home or self-care (01) ==
LOC: ER 08:23
DX: R53.1 Weakness (principal); J44.9 Chronic obstructive pulmonary disease, unspecified; I10 Essential (primary) hypertension; E03.9 Hypothyroidism, unspecified
CPT/HCPCS: 36415; 71045; 80053; 81001; 85025; 93005; 94761; 96374; 99284; J1885; J7030

== ENCOUNTER → 2018-12-06 | Outpatient (CLI) | payer MEDICARE, MEDICAID ==
[~2018-12-06] MED LIST changes: +FAM20T PO; +LEVO100T8 PO; +LOSA25TA8 PO; +POTA8TAB2 PO; +RANI-185 PO
[2018-12-06 11:30] VITALS: BP 128/90
--- NOTE | 2018-12-06 11:30 | NUR ---
[facility] PT ARRIVED AT THE [facility] FOR PREOP EKG, LABS AND CXR
[2018-12-06 11:50] VITALS: BP 128/77
--- NOTE | 2018-12-06 11:50 | NUR ---
Pre-Op Discharge Summary: See e-MAR for any medications given for this visit. Pre-op orders received and carried out per MD of EKG, LABS and chest xrays. Patient given a copy of EKG with instructions to go to [facility] out patient for further follow up care.
[2018-12-06 15:55] LABS: Urine Blood Negative /uL (Negative); Urine Specific Gravity 1.019 (1.001-1.035)
[2018-12-06 16:41] LABS: INR 0.93 (0.9-1.15); Partial Thromboplastin Time 26.3 sec (23.64-32.05)
[2018-12-06 16:49] LABS: Basophils # (auto) 0 uL; Basophils % (auto) 0.6 % (0.0-2.0); Eosinophils # (auto) 0.1 uL; Eosinophils % (auto) 3.1 % (0.0-7.0); Hematocrit 50.1 % (41.0-53.0); Hemoglobin 16.6 g/dL (13.5-17.5); Lymphocytes # (auto) 1.4 uL; Lymphocytes % (auto) 30.9 % (10.0-50.0); Mean Corpuscular Hemoglobin 28.9 pg (28.0-32.0); Mean Corpuscular Hgb Conc. 33.1 g/dL (32.0-36.0); Mean Corpuscular Volume 87.2 fL (80.0-100.0); Monocytes # (auto) 0.4 uL; Monocytes % (auto) 8.7 % (0.0-12.0); Neutrophils # (auto) 2.6 uL; Neutrophils % (auto) 56.7 % (37.0-80.0); Nucleated Red Blood Cells % 0.3 %; Platelet Count (auto) 244 10^3/uL (140-450); Red Blood Cells 5.75 10^6/uL (4.5-5.90); Red Cell Distribution Width 14.2 % (11.8-14.3); White Blood Cell 4.6 10^3/uL (4.4-10.8)
[2018-12-06 16:57] LABS: Potassium 4.4 mmol/L (3.5-5.1)
== END | disposition home or self-care (01) ==
LOC: Rad HDHVI 10:53
PROVIDERS: ATTEND Internal Medicine Cardiovascular Disease
DX: Z01.818 Encounter for other preprocedural examination (principal); D64.9 Anemia, unspecified; R79.1 Abnormal coagulation profile; I10 Essential (primary) hypertension; J44.9 Chronic obstructive pulmonary disease, unspecified
CPT/HCPCS: 36415; 71046; 80048; 81003; 85025; 85610; 85730; 93005; G0463

== ENCOUNTER 2018-12-09 07:13 | Day surgery (SDC) | payer MEDICARE, MEDICAID ==
[~2018-12-09] VITALS: Ht 175.3 cm; Wt 87.5 kg
[2018-12-09] MEDS ORDERED: LIDOCAINE 2%HCL (LOCAL ANESTH.) INJ 20ML MDV ONE (08:18)
[2018-12-09] MEDS ORDERED: ANGIOMAX 250 MG VIAL IV ONE (08:19)
[2018-12-09] MEDS ORDERED: fentaNYL CITRATE 100 MCG/2 ML VL ONE (08:19)
[2018-12-09] MEDS ORDERED: MIDAZOLAM HCL 1MG/1ML-2 ML VIAL ONE ×2 (08:20→09:55)
[2018-12-09] MEDS ORDERED: SODIUM CHL 0.9% 0 ML ONE (08:20)
[2018-12-09] MEDS ORDERED: ONDANSETRON HCL 4 MG/2 ML VIAL IV PRN (11:30)
[2018-12-09] MEDS ORDERED: ACETAMINOPHEN 500 MG TAB PO PRN (11:30)
[2018-12-09] MEDS ORDERED: HYDROcodone-ACET 5/325MG TAB PO PRN (11:30)
== END 2018-12-09 16:10 | disposition home or self-care (01) ==
LOC: CATH 07:13
PROVIDERS: ATTEND Internal Medicine Cardiovascular Disease
DX: I73.9 Peripheral vascular disease, unspecified (principal); R06.02 Shortness of breath; R07.9 Chest pain, unspecified; I12.9 Hypertensive chronic kidney disease with stage 1 through stage 4 chronic kidney disease, or unspecified chronic kidney disease; N18.3 Chronic kidney disease, stage 3 (moderate); E07.9 Disorder of thyroid, unspecified; J44.9 Chronic obstructive pulmonary disease, unspecified; Z87.891 Personal history of nicotine dependence; Z79.899 Other long term (current) drug therapy; Z88.0 Allergy status to penicillin; Z88.2 Allergy status to sulfonamides; Z86.19 Personal history of other infectious and parasitic diseases
CPT/HCPCS: 36246; 75716; 93005; 93458; C1760; C1894; J1644; J2250; J7030; 99152; 99153

== ENCOUNTER → 2018-12-17 | Outpatient (CLI) | payer MEDICARE, MEDICAID | END | disposition home or self-care (01) | LOC: LAB 08:49 | PROVIDERS: ATTEND Internal Medicine | DX: D69.1 Qualitative platelet defects (principal) | CPT/HCPCS: 36415 ==

== ENCOUNTER → 2019-02-16 | Outpatient (CLI) | payer MEDICARE, MEDICAID | END | disposition home or self-care (01) | LOC: XY 07:22 | PROVIDERS: ATTEND Internal Medicine Gastroenterology | DX: R10.11 Right upper quadrant pain (principal) | CPT/HCPCS: 78226; A9537 ==

== ENCOUNTER → 2019-04-12 | Outpatient (CLI) | payer MEDICARE, MEDICAID ==
[2019-04-12 14:53] LABS: Albumin 3.5 g/dL (3.4-5.0); Bilirubin, Direct 0.1 mg/dL (0-0.2); Bilirubin, Total 0.5 mg/dL (0.2-1.0); Total Protein 7.3 g/dL (6.4-8.2)
== END | disposition home or self-care (01) ==
LOC: LAB 13:03
PROVIDERS: ATTEND Internal Medicine Gastroenterology
DX: K76.0 Fatty (change of) liver, not elsewhere classified (principal); R01.1 Cardiac murmur, unspecified
CPT/HCPCS: 36415; 80076; 82565; 84520

== ENCOUNTER → 2019-08-24 | Outpatient (CLI) | payer MEDICARE, MEDICAID ==
[2019-08-24 11:52] LABS: Basophils # (auto) 0 10 ^3/uL (0-0.2); Basophils % (auto) 0.6 % (0.0-2.0); Eosinophils # (auto) 0.2 10 ^3/uL (0-0.8); Eosinophils % (auto) 3.5 % (0.0-7.0); Hematocrit 51.7 % (41.0-53.0); Hemoglobin 16.7 g/dL (13.5-17.5); Lymphocytes # (auto) 1.8 10 ^3/uL (0.4-5.4); Lymphocytes % (auto) 36.2 % (10.0-50.0); Mean Corpuscular Hemoglobin 28.2 pg (28.0-32.0); Mean Corpuscular Hgb Conc. 32.4 g/dL (32.0-36.0); Mean Corpuscular Volume 86.9 fL (80.0-100.0); Monocytes # (auto) 0.6 10 ^3/uL (0-1.3); Monocytes % (auto) 12.2 % (0.0-12.0); Neutrophils # (auto) 2.3 10 ^3/uL (1.6-8.6); Neutrophils % (auto) 47.5 % (37.0-80.0); Nucleated Red Blood Cells % 0.1 %; Platelet Count (auto) 281 10^3/uL (140-450); Red Blood Cells 5.95 10^6/uL (4.5-5.90); Red Cell Distribution Width 14.4 % (11.8-14.3); White Blood Cell 4.9 10^3/uL (4.4-10.8)
[2019-08-24 11:54] LABS: Urine Blood Negative /uL (Negative); Urine Specific Gravity 1.027 (1.001-1.035)
[2019-08-24 12:09] LABS: Potassium 3.6 mmol/L (3.5-5.1)
[2019-08-24 12:14] LABS: Free T4 (Free Thyroxine) 1.43 ng/dL (0.89-1.76)
[2019-08-24 12:15] LABS: Prostate Specific Antigen 0.88 ng/mL (0.0-4.0)
[2019-08-24 12:24] LABS: Albumin 3.6 g/dL (3.4-5.0); BUN/Creatinine Ratio 15.5; Bilirubin, Total 0.5 mg/dL (0.2-1.0); Total Protein 7.7 g/dL (6.4-8.2)
== END | disposition home or self-care (01) ==
LOC: Rad HDHVI 10:19
PROVIDERS: ATTEND Internal Medicine Cardiovascular Disease
DX: C61 Malignant neoplasm of prostate (principal); E03.9 Hypothyroidism, unspecified; K90.9 Intestinal malabsorption, unspecified; E29.1 Testicular hypofunction; N39.0 Urinary tract infection, site not specified; D51.9 Vitamin B12 deficiency anemia, unspecified; R06.02 Shortness of breath; Z00.00 Encounter for general adult medical examination without abnormal findings; Z79.899 Other long term (current) drug therapy
CPT/HCPCS: 36415; 71046; 80053; 80061; 81003; 82306; 82607; 83036; 84153; 84403; 84439; 84443; 85025

== ENCOUNTER → 2019-08-30 | Outpatient (CLI) | payer MEDICARE, MEDICAID | END | disposition home or self-care (01) | LOC: Rad HDHVI 15:49 | PROVIDERS: ATTEND Internal Medicine Cardiovascular Disease | DX: I20.0 Unstable angina (principal); R07.89 Other chest pain; R42 Dizziness and giddiness | CPT/HCPCS: 93306 ==

== ENCOUNTER → 2019-09-14 | Outpatient (CLI) | payer MEDICARE, MEDICAID ==
[~2019-09-14] VITALS: Ht 172.7 cm; Wt 97.5 kg
== END | disposition home or self-care (01) ==
LOC: Rad HDHVI 13:28
PROVIDERS: ATTEND Internal Medicine Cardiovascular Disease
DX: R07.9 Chest pain, unspecified (principal); I10 Essential (primary) hypertension; Z82.49 Family history of ischemic heart disease and other diseases of the circulatory system
CPT/HCPCS: 78452; 93017; 96374; A9500

== ENCOUNTER → 2019-09-26 | Outpatient (CLI) | payer MEDICARE, MEDICAID | END | disposition home or self-care (01) | LOC: LAB 11:37 | PROVIDERS: ATTEND Radiology Diagnostic Radiology | DX: R10.9 Unspecified abdominal pain (principal) | CPT/HCPCS: 36415; 82565 ==

== ENCOUNTER → 2019-10-10 | Outpatient (CLI) | payer MEDICARE, MEDICAID ==
[2019-10-10 13:49] LABS: Urine WBC None Seen /hpf (0 - 3)
[2019-10-10 13:54] LABS: Basophils # (auto) 0.1 10 ^3/uL (0-0.2); Eosinophils # (auto) 0.2 10 ^3/uL (0-0.8); Eosinophils % (auto) 4.3 % (0.0-7.0); Hematocrit 49.5 % (41.0-53.0); Hemoglobin 16.1 g/dL (13.5-17.5); Lymphocytes # (auto) 1.4 10 ^3/uL (0.4-5.4); Lymphocytes % (auto) 28.1 % (10.0-50.0); Mean Corpuscular Hemoglobin 28.4 pg (28.0-32.0); Mean Corpuscular Hgb Conc. 32.5 g/dL (32.0-36.0); Mean Corpuscular Volume 87.2 fL (80.0-100.0); Monocytes # (auto) 0.4 10 ^3/uL (0-1.3); Monocytes % (auto) 8.6 % (0.0-12.0); Neutrophils # (auto) 2.9 10 ^3/uL (1.6-8.6); Platelet Count (auto) 238 10^3/uL (140-450); Red Blood Cells 5.68 10^6/uL (4.5-5.90); Red Cell Distribution Width 14.2 % (11.8-14.3); White Blood Cell 5.1 10^3/uL (4.4-10.8)
[2019-10-10 14:00] LABS: Urine Bacteria NONE SEEN /hpf (None Seen); Urine Blood Negative /uL (Negative); Urine Specific Gravity 1.002 (1.001-1.035)
[2019-10-10 14:14] LABS: Albumin 3.6 g/dL (3.4-5.0); Calcium 8.5 mg/dL (8.5-10.1); Potassium 4.2 mmol/L (3.5-5.1)
[2019-10-10 14:17] LABS: BUN/Creatinine Ratio 10.8; Bilirubin, Total 0.6 mg/dL (0.2-1.0); Total Protein 7.1 g/dL (6.4-8.2)
== END | disposition home or self-care (01) ==
LOC: LAB 13:30
PROVIDERS: ATTEND Internal Medicine Gastroenterology
DX: K76.0 Fatty (change of) liver, not elsewhere classified (principal); R53.83 Other fatigue
CPT/HCPCS: 36415; 80053; 81001; 82140; 85025

== ENCOUNTER 2019-11-02 21:49 | Emergency (ER) | payer MEDICARE, MEDICAID ==
[~2019-11-02] VITALS: Ht 172.7 cm; Wt 93.0 kg
[~2019-11-02 21:49] MED LIST changes: -FAM20T PO; +FAMO20TA10 PO
[2019-11-02 21:50] VITALS: BP 151/100
[2019-11-02 23:39] LABS: Basophils # (auto) 0.1 10 ^3/uL (0-0.2); Basophils % (auto) 0.9 % (0.0-2.0); Eosinophils # (auto) 0.1 10 ^3/uL (0-0.8); Eosinophils % (auto) 2.7 % (0.0-7.0); Hemoglobin 16.5 g/dL (13.5-17.5); Lymphocytes # (auto) 1.4 10 ^3/uL (0.4-5.4); Lymphocytes % (auto) 26.1 % (10.0-50.0); Mean Corpuscular Hemoglobin 29.1 pg (28.0-32.0); Mean Corpuscular Hgb Conc. 33.6 g/dL (32.0-36.0); Mean Corpuscular Volume 86.6 fL (80.0-100.0); Monocytes # (auto) 0.7 10 ^3/uL (0-1.3); Monocytes % (auto) 12.1 % (0.0-12.0); Neutrophils # (auto) 3.2 10 ^3/uL (1.6-8.6); Neutrophils % (auto) 58.2 % (37.0-80.0); Nucleated Red Blood Cells % 0.2 %; Platelet Count (auto) 255 10^3/uL (140-450); Red Blood Cells 5.66 10^6/uL (4.5-5.90); Red Cell Distribution Width 14.1 % (11.8-14.3); White Blood Cell 5.5 10^3/uL (4.4-10.8)
[2019-11-02 23:53] LABS: Anion Gap 4 (5-15); Blood Urea Nitrogen 14 mg/dL (7-18); Calcium 8.8 mg/dL (8.5-10.1); Carbon Dioxide 25 mmol/L (21-32); Chloride 110 mmol/L (98-107); Glucose 104 mg/dL (74-106); Magnesium 2.7 mg/dL (1.6-2.6); Potassium 3.9 mmol/L (3.5-5.1); Sodium 139 mmol/L (136-145)
[2019-11-03 00:02] LABS: Alanine Aminotransferase 62 U/L (16-61); Alkaline Phosphatase 97 U/L (45-117); Aspartate Aminotransferase 26 U/L (15-37); BUN/Creatinine Ratio 11.7; Bilirubin, Total 0.3 mg/dL (0.2-1.0); CRP High Sensitivity 0.11 mg/dL (< 0.3); GFR African American 79 mL/min; GFR Non-African American 65 mL/min
== END 2019-11-03 01:35 | disposition home or self-care (01) ==
LOC: ER 21:52
DX: J44.9 Chronic obstructive pulmonary disease, unspecified (principal); Z20.828 Contact with and (suspected) exposure to other viral communicable diseases; I10 Essential (primary) hypertension; Z87.442 Personal history of urinary calculi
CPT/HCPCS: 36415; 36600; 71045; 80053; 82728; 82805; 83735; 83880; 84484; 85025; 85379; 86141; 93005; 99285; C9803; U0003

== ENCOUNTER → 2020-01-04 | Outpatient (CLI) | payer MEDICARE ==
[~2020-01-04] MED LIST changes: -DEXL60CA3 PO; +DEXL60CA4 PO
[2020-01-04 14:41] LABS: Albumin 4.1 g/dL (3.4-5.0)
[2020-01-04 14:46] LABS: Alanine Aminotransferase 67 U/L (16-61); Alkaline Phosphatase 108 U/L (45-117); Aspartate Aminotransferase 28 U/L (15-37); Bilirubin, Direct < 0.1 mg/dL (0-0.2); Bilirubin, Total 0.4 mg/dL (0.2-1.0); Total Protein 7.8 g/dL (6.4-8.2)
== END | disposition home or self-care (01) ==
LOC: LAB 14:03
PROVIDERS: ATTEND Internal Medicine Gastroenterology
DX: R94.5 Abnormal results of liver function studies (principal)
CPT/HCPCS: 36415; 80076

== ENCOUNTER 2020-02-08 06:41 | Inpatient (IN) | payer MEDICARE, MEDICAID ==
[2020-02-02 11:33] LABS: Basophils # (auto) 0 10 ^3/uL (0-0.2); Basophils % (auto) 0.6 % (0.0-2.0); Eosinophils # (auto) 0.2 10 ^3/uL (0-0.8); Eosinophils % (auto) 3.4 % (0.0-7.0); Hematocrit 49.6 % (41.0-53.0); Hemoglobin 16.4 g/dL (13.5-17.5); Lymphocytes # (auto) 1.5 10 ^3/uL (0.4-5.4); Lymphocytes % (auto) 26.5 % (10.0-50.0); Mean Corpuscular Hemoglobin 29.2 pg (28.0-32.0); Mean Corpuscular Volume 88.3 fL (80.0-100.0); Monocytes # (auto) 0.5 10 ^3/uL (0-1.3); Monocytes % (auto) 8.1 % (0.0-12.0); Neutrophils # (auto) 3.5 10 ^3/uL (1.6-8.6); Neutrophils % (auto) 61.4 % (37.0-80.0); Nucleated Red Blood Cells % 0.1 %; Platelet Count (auto) 252 10^3/uL (140-450); Red Blood Cells 5.61 10^6/uL (4.5-5.90); Red Cell Distribution Width 14.3 % (11.8-14.3); White Blood Cell 5.6 10^3/uL (4.4-10.8)
[2020-02-02 11:37] LABS: Urine Bacteria NONE SEEN /hpf (None Seen); Urine Blood Negative /uL (Negative); Urine Specific Gravity 1.014 (1.001-1.035); Urine WBC 1 /hpf (0 - 3)
[2020-02-02 11:59] LABS: INR 0.96 (0.9-1.15); Partial Thromboplastin Time 26.1 sec (23.0-31.2)
[2020-02-02 13:04] LABS: Albumin 3.7 g/dL (3.4-5.0); Calcium 8.5 mg/dL (8.5-10.1); Potassium 4.1 mmol/L (3.5-5.1)
[2020-02-02 13:08] LABS: BUN/Creatinine Ratio 13.3; Bilirubin, Total 0.4 mg/dL (0.2-1.0)
[~2020-02-08] VITALS: Ht 175.3 cm; Wt 103.3 kg
[~2020-02-08 06:41] MED LIST changes: -LEVO100T8 PO; -LOSA25TA8 PO; -POTA8TAB2 PO; -RANI-185 PO
[2020-02-08] MEDS ORDERED: levoFLOXacin 500MG 100 ML IV ONE ×2 (07:40→13:15)
[2020-02-08] MEDS ORDERED: SUCCINYLCHOLINE CHLORIDE 20 MG/ML 10ML VIAL IV ONE (09:08)
[2020-02-08] MEDS ORDERED: fentaNYL CITRATE 100 MCG/2 ML VL ONE ×2 (09:11→09:40)
[2020-02-08] MEDS ORDERED: PROPOFOL 10 MG/ML 20 ML IV ONE (09:12)
[2020-02-08] MEDS ORDERED: ROCURONIUM 10MG/ML 10ML VIAL IV ONE (09:12)
[2020-02-08] MEDS ORDERED: D5W/SOD CHL 0.45%/KCL 40MEQ 1,000 ML IV ONE (10:15)
[2020-02-08] MEDS ORDERED: HYDROmorphone HCL 2 MG/ML VL IV PRN (10:15)
[2020-02-08] MEDS ORDERED: ACETAMINOPHEN/CODEINE#3 (300/30mg) TAB PO PRN (10:15)
[2020-02-08] MEDS ORDERED: fentaNYL CITRATE 100 MCG/2 ML VL IV ONE (10:58)
[2020-02-08] MEDS ORDERED: fentaNYL CITRATE 100 MCG/2 ML VL IV PRN (11:00)
[2020-02-08] MEDS ORDERED: ONDANSETRON HCL 4 MG/2 ML VIAL IV PRN (11:00)
[2020-02-08] MEDS ORDERED: hydrALAZINE HCL 20 MG/ML VL IV PRN (11:00)
[2020-02-08] MEDS ORDERED: ePHEDrine SULFATE 50 MG/ML AMP IV PRN (11:00)
[2020-02-08] MEDS ORDERED: MORPHINE SULFATE 4 MG/ML SYR/VIAL IV PRN (11:00)
--- NOTE | 2020-02-08 11:23 | NUR ---
OR ADMIT Patient to room 295A, S/P LAP KATHARINA. Patient alert/oriented X4, on room air, denies any sob/discomfort. Pain level is currently a 3/10 on abdominal area, described as "soreness", patient states pain is tolerable at this time, therefore no further actions needed at this time. 3 abdominal incisions dry and intact with 4x4 and te[address]erm in place. Abdominal binder also in place. Addendum: 02/08/20 at 1412 by DARLENE BETANCUR RN RN OR ADMIT Patient to room 295A, S/P LAP KATHARINA. Patient alert/oriented X4, on room air, denies any sob/discomfort. Pain level is currently a 3/10 on abdominal area, described as "soreness", patient states pain is tolerable at this time, therefore no further actions needed at this time. 3 abdominal incisions dry and intact with 4x4 and te[address]erm in place. Abdominal binder also in place. Bed at its lowest position, call light within reach. Patient up to date on POC, will continue to monitor.
--- NOTE | 2020-02-08 12:22 | NUR ---
DR. Nunez paged for ADMIT orders. Awaiting call back.
[2020-02-08] MEDS ORDERED: HYDROcodone-ACET 10/325MG TAB PO PRN (12:45)
[2020-02-08 13:00] VITALS: BP 152/97
[2020-02-08] MEDS ORDERED: hydrOXYchloroQUINE SULFATE 200 MG TAB PO ONE (13:15)
[2020-02-08] MEDS ORDERED: FAMOTIDINE 20 MG TAB PO ONE (13:15)
[2020-02-08 13:26] VITALS: BP 152/97
--- NOTE | 2020-02-08 13:48 | NUR ---
VTE SCORE C/O Heart burn Attending Enrique, paged for high risk VTE score and patient requesting "tums for heart burn" new orders received, read back and verified. Refer to order hx.
[2020-02-08] MEDS ORDERED: LEVALBUTEROL HCL 1.25 MG/3 ML NEB NEB SCH (14:00)
[2020-02-08] MEDS ORDERED: CALCIUM CARB 500 MG CHEW TAB PO PRN (14:00)
[2020-02-08] MEDS: ENOXAPARIN SOD 100 MG/1 ML SYRINGE SC ONE ×2 (14:16→15:00)
--- NOTE | 2020-02-08 14:25 | NUR ---
Patient refused new medication orders for today. Refer to eMAR. Patient states, "I already got levaquin in OR and it hurt my stomach, and I wont need my plaquenil today or tomorrow because it stays in my system for a long time and I'm fine without it, as for the rest they are unnecessary and I try not to take many medications if I don't need them, I will be going home tomorrow so Ill be fine." Patient educated on need/risks of refusing each med, patient verbalizes understanding and continues to refuse administration post teaching. Will continue to monitor.
--- NOTE | 2020-02-08 14:26 | NUR ---
RT NOTE: PRN BREATHING TX. NOT INDICATED AT THIS TIME. PT. DENIES ANY SOB. PT. HR 67, RR 16, POX 96% R/A. BEDSIDE POX SET UP WELL. PT. AWARE TO NOTIFY RN IF BREATHING TX. IS NEEDED.
--- NOTE | 2020-02-08 15:30 | NUR ---
c/o REACTION TO LEVAQUIN IVPB Patient c/o left arm itchiness and rash after abx started. Patient states "I'm allergic to a lof of antibiotics and this looks like a reaction" abx stopped at this time. Will page MD for orders.
[2020-02-08 16:57] VITALS: BP 140/86
[2020-02-08] MEDS ORDERED: LEVALBUTEROL HCL 1.25 MG/3 ML NEB NEB PRN (17:30)
--- NOTE | 2020-02-08 18:36 | NUR ---
MD Nunez at bed side, new abx order obtained. Refer to order hx.
[2020-02-08] MEDS ORDERED: VANCOMYCIN 1GM/250ML 250 ML IV ONE (19:00)
[2020-02-08] MEDS: ALPRAZolam 0.5 MG TAB PO PRN (19:58)
[2020-02-08] MEDS ORDERED: VANCOMYCIN PER PHARMACY 0 MG IV SCH (20:00)
[2020-02-08 22:00] VITALS: BP 143/91
[2020-02-09 02:00] VITALS: BP 143/91
[2020-02-09 05:00] VITALS: BP 127/71
[2020-02-09 05:55] LABS: Basophils # (auto) 0 10 ^3/uL (0-0.2); Basophils % (auto) 0.7 % (0.0-2.0); Eosinophils # (auto) 0.2 10 ^3/uL (0-0.8); Eosinophils % (auto) 2.8 % (0.0-7.0); Hematocrit 43.7 % (41.0-53.0); Lymphocytes # (auto) 1.6 10 ^3/uL (0.4-5.4); Lymphocytes % (auto) 25.2 % (10.0-50.0); Mean Corpuscular Hgb Conc. 34.4 g/dL (32.0-36.0); Mean Corpuscular Volume 87.2 fL (80.0-100.0); Monocytes # (auto) 0.7 10 ^3/uL (0-1.3); Neutrophils # (auto) 3.8 10 ^3/uL (1.6-8.6); Neutrophils % (auto) 60.3 % (37.0-80.0); Nucleated Red Blood Cells % 0.1 %; Platelet Count (auto) 217 10^3/uL (140-450); Red Blood Cells 5.01 10^6/uL (4.5-5.90); White Blood Cell 6.3 10^3/uL (4.4-10.8)
[2020-02-09 06:15] LABS: Calcium 8.4 mg/dL (8.5-10.1); Potassium 3.9 mmol/L (3.5-5.1)
[2020-02-09 06:19] LABS: BUN/Creatinine Ratio 10.8
[2020-02-09] MEDS: ALPRAZolam 0.5 MG TAB PO PRN ×2 (06:20→21:56)
[2020-02-09] MEDS ORDERED: LEVOTHYROXINE SODIUM 112 MCG TAB PO SCH (07:00)
--- NOTE | 2020-02-09 07:09 | NUR ---
PT RESTED WELL NO DISTRESS VSS;STATES A DESIRE TO GO HOME TODAY.
--- NOTE | 2020-02-09 07:30 | NUR ---
Opening Shift Note Assumed care of patient, awake and alert. No S/S of distress/SOB or pain. Instructed on POC and to call for assist PRN, will continue to monitor for changes Q1hr and PRN. Fall precautions in place per safety protocol.
--- NOTE | 2020-02-09 07:38 | NUR ---
Respiratory note: PT IS AWAKE, AND ALERT. NO RESPIRATORY DISTRESS NOTED. SPO2 93% ON RA, HR 75, RR 18, BS CLEAR BILATERALLY. PRN MEDNEB TX NOT INDICATED. PT STATED THAT HE FEELS NO NEED TO HAVE A MEDNEB TX WHAT SO EVER. PT INFORMED TO PRESS CALL BUTTON IF INCREASED WOB, SOB, OR WHEEZING OCCURS. WILL CONTINUE TO MONITOR PT.
[2020-02-09 08:39] VITALS: BP 133/83
[2020-02-09] MEDS: FAMOTIDINE 20 MG TAB PO SCH (09:53)
[2020-02-09] MEDS: hydrOXYchloroQUINE SULFATE 200 MG TAB PO SCH (09:54)
[2020-02-09] MEDS: TRIAMTERENE/HCTZ 37.5/25 MG CAP/TAB PO SCH (09:56)
[2020-02-09] MEDS: ENOXAPARIN SOD 100 MG/1 ML SYRINGE SC SCH (09:57)
[2020-02-09] MEDS: ATENOLOL 50 MG TAB PO SCH ×2 (09:57→10:00)
[2020-02-09] MEDS ORDERED: levoFLOXacin 500MG 100 ML IV SCH (10:00)
[2020-02-09] MEDS ORDERED: PANTOPRAZOLE 40 MG/10 ML VIAL INJ IV SCH (10:00)
[2020-02-09 12:35] VITALS: BP 134/87
[2020-02-09 16:37] VITALS: BP 125/80
[2020-02-09] MEDS ORDERED: ACETAMINOPHEN 325 MG TAB PO PRN (18:00)
[2020-02-09] MEDS ORDERED: PANTOPRAZOLE 40 MG TAB PO ONE (18:00)
--- NOTE | 2020-02-09 18:03 | NUR ---
MD Nunez Obtained new orders from MD Nunez for Tylenol and Protonix from MD Nunez. Orders read back and verified, will cont to monitor patient.
--- NOTE | 2020-02-09 19:12 | NUR ---
Endorsed care to night RN Zeeshan. Patient resting in bed, no distress, sob, or pain noted at this time.
[2020-02-09 21:51] VITALS: BP 123/87
[2020-02-09] MEDS: VANCOMYCIN 1GM/250ML 250 ML IV SCH (21:55)
--- NOTE | 2020-02-10 01:57 | NUR ---
Partial Vancomycin Dose Started the 2000hr Vancomycin dose but half way through infusion, the patient started complaining of itching. He had not outward signs of a reaction and he has already received Vancomycin without issue. Educated the patient on the need of the antibiotic, especially since he recently had surgery. The patient stated several times he didn't need this dose as the first was enough. I told him that was not true and it was important he took the medication. He let it go another 20mns before requesting I turn it off. He seemed to believe it was not a big deal if he got the medication or not. I again explained the need for it but complied with his wishes. He received 3/4 of the total dose of Vancomycin. Will continue to monitor.
[2020-02-10 05:00] VITALS: BP 118/78
[2020-02-10] MEDS ORDERED: LEVOTHYROXINE SODIUM 50 MCG TAB PO SCH (07:00)
--- NOTE | 2020-02-10 07:50 | NUR ---
Opening Note Received report from chemistry lecturer RN. Patient is awake, alert and oriented x4. No signs or symptoms of distress noted at this time. Patient denies pain or shortness of breath at this time. Patient is on room air, respirations even and unlabored. Three abdominal incisions, clean dry and intact. Reviewed plan of care with patient, patient verbalize understanding. Bed in low and locked position, call light within reach. Will continue to monitor Q1hour and PRN.
--- NOTE | 2020-02-10 08:00 | NUR ---
Opening Shift Note Assumed care of patient, awake and alert x4. No S/S of distress/SOB or pain. Instructed on POC and to call for assist PRN. Bed rails up x2 and call light within reach. Will continue to monitor for changes Q1hr and PRN. Signed: 02/10/20 at 1112 by SN LAURITA <Co-Signature Required> Co-Signed: 02/10/20 at 1112 by ADÁN SERRANO RN RN
[2020-02-10 08:30] VITALS: BP 128/77
--- NOTE | 2020-02-10 08:50 | NUR ---
Incentive Spirometer Patient provide and incentive spirometer. Patient educated on how to use. Patient verbalize understanding and returned demonstration. Will continue to monitor Q1 hour and PRN.
--- NOTE | 2020-02-10 09:06 | NUR ---
Respiratory note: PT SEEN AND ASSESSED FOR PRN MEDNEB TX. HR 63, RR 18, SPO2 95% ON ROOM AIR. BREATH SOUNDS CLEAR T/O. PT DENIES ANY SOB. MEDNEB TX NOT INDICATED AT THIS TIME. PT AWARE TO CALL FOR RT IF NEEDED. NO S/S OF DISTRESS NOTED.
--- NOTE | 2020-02-10 09:12 | NUR ---
Dr. Enrique SAL at bedside discussing plan of care with patient and this RN. Patient to discharge later today if he tolerates advancing his diet. Patient verbalized understanding. Will continue to monitor Q1 hour and PRN.
[2020-02-10] MEDS: FAMOTIDINE 20 MG TAB PO SCH (09:53)
[2020-02-10] MEDS: ATENOLOL 50 MG TAB PO SCH (09:54)
[2020-02-10] MEDS: ENOXAPARIN SOD 100 MG/1 ML SYRINGE SC SCH (09:55)
[2020-02-10] MEDS: VANCOMYCIN 1GM/250ML 250 ML IV SCH (09:56)
[2020-02-10] MEDS: hydrOXYchloroQUINE SULFATE 200 MG TAB PO SCH (09:57)
[2020-02-10] MEDS: TRIAMTERENE/HCTZ 37.5/25 MG CAP/TAB PO SCH (09:57)
[2020-02-10] MEDS ORDERED: PANTOPRAZOLE 40 MG TAB PO SCH (10:00)
[2020-02-10 12:32] VITALS: BP 129/79
[2020-02-10 16:36] VITALS: BP 137/87
[2020-02-10 17:21] VITALS: BP 128/77
--- NOTE | 2020-02-10 17:46 | NUR ---
Discharge Discharge instructions given as ordered. Encourage to follow up with PMD as instructed. All questions and concerns addressed. Patient verbalized understanding. Medication reconciliation form completed and copy given to patient. IV removed with catheter intact, pressure dressing applied. ekg monitor tech removed and sent back to ICU. Patient ambulated to private vehicle with all personal belongings, accompanied by this RN. No signs or symptoms of distress noted at this.
== END 2020-02-10 17:45 | disposition home or self-care (01) | DRG 419 ==
LOC: SUR 06:41 → TELE-WESTW 12:17
PROVIDERS: ADMIT Surgery; ATTEND Internal Medicine Cardiovascular Disease
PROC: 0FT44ZZ Resection of Gallbladder, Percutaneous Endoscopic Approach (ICD-10-PCS; principal; 2020-02-08 09:02)
DX: K80.10 Calculus of gallbladder with chronic cholecystitis without obstruction (principal); K76.0 Fatty (change of) liver, not elsewhere classified; Z20.828 Contact with and (suspected) exposure to other viral communicable diseases; E66.01 Morbid (severe) obesity due to excess calories; Z88.0 Allergy status to penicillin; Z88.2 Allergy status to sulfonamides; Z86.19 Personal history of other infectious and parasitic diseases; Z68.33 Body mass index [BMI] 33.0-33.9, adult
CPT/HCPCS: 36415; 80048; 80053; 80202; 81001; 82565; 85025; 85610; 85730; 86850; 86900; 86901; G0378; J0330; J1956; J2704

== ENCOUNTER → 2020-03-16 | Outpatient (CLI) | payer MEDICARE, MEDICAID ==
[2020-03-16 12:14] LABS: Basophils # (auto) 0 10 ^3/uL (0-0.2); Basophils % (auto) 0.6 % (0.0-2.0); Eosinophils # (auto) 0.2 10 ^3/uL (0-0.8); Eosinophils % (auto) 3.9 % (0.0-7.0); Hematocrit 47.3 % (41.0-53.0); Hemoglobin 15.6 g/dL (13.5-17.5); Lymphocytes # (auto) 1.6 10 ^3/uL (0.4-5.4); Lymphocytes % (auto) 29.7 % (10.0-50.0); Mean Corpuscular Hemoglobin 29.4 pg (28.0-32.0); Monocytes # (auto) 0.7 10 ^3/uL (0-1.3); Monocytes % (auto) 12.3 % (0.0-12.0); Neutrophils # (auto) 2.9 10 ^3/uL (1.6-8.6); Neutrophils % (auto) 53.5 % (37.0-80.0); Platelet Count (auto) 228 10^3/uL (140-450); Red Blood Cells 5.32 10^6/uL (4.5-5.90); Red Cell Distribution Width 14.3 % (11.8-14.3); White Blood Cell 5.5 10^3/uL (4.4-10.8)
[2020-03-16 12:19] LABS: Urine Blood Negative /uL (Negative); Urine Specific Gravity 1.027 (1.001-1.035)
[2020-03-16 12:27] LABS: Albumin 3.6 g/dL (3.4-5.0); BUN/Creatinine Ratio 20.9; Calcium 8.9 mg/dL (8.5-10.1); Potassium 4.4 mmol/L (3.5-5.1)
[2020-03-16 12:37] LABS: Free T4 (Free Thyroxine) 0.95 ng/dL (0.89-1.76); Prostate Specific Antigen 1.01 ng/mL (0.0-4.0)
[2020-03-16 12:52] LABS: Bilirubin, Total 0.7 mg/dL (0.2-1.0); Total Protein 7.2 g/dL (6.4-8.2)
== END | disposition home or self-care (01) ==
LOC: LAB 10:03
PROVIDERS: ATTEND Internal Medicine Cardiovascular Disease
DX: C61 Malignant neoplasm of prostate (principal); D51.3 Other dietary vitamin B12 deficiency anemia; D64.9 Anemia, unspecified; E11.9 Type 2 diabetes mellitus without complications; E55.9 Vitamin D deficiency, unspecified; I10 Essential (primary) hypertension; R00.2 Palpitations; R53.1 Weakness; R30.0 Dysuria
CPT/HCPCS: 36415; 80053; 80061; 81003; 82306; 82607; 83036; 84153; 84403; 84439; 84443; 85025

== ENCOUNTER 2020-06-09 10:35 | Emergency (ER) | payer MEDICARE, MEDICAID ==
[~2020-06-09] VITALS: Ht 172.7 cm; Wt 90.7 kg
[~2020-06-09 10:35] MED LIST changes: +LEVO125T PO; -LEVO125T66 PO
[2020-06-09 10:43] VITALS: BP 168/96
[2020-06-09 11:19] LABS: Urine Bacteria NONE SEEN /hpf (None Seen); Urine Blood Negative /uL (Negative); Urine Specific Gravity 1.005 (1.001-1.035); Urine WBC <1 /hpf (0 - 3)
[2020-06-09 12:54] LABS: Basophils # (auto) 0 10 ^3/uL (0-0.2); Basophils % (auto) 0.8 % (0.0-2.0); Eosinophils # (auto) 0.1 10 ^3/uL (0-0.8); Eosinophils % (auto) 2.4 % (0.0-7.0); Hemoglobin 16.1 g/dL (13.5-17.5); Lymphocytes # (auto) 1.5 10 ^3/uL (0.4-5.4); Lymphocytes % (auto) 29.6 % (10.0-50.0); Mean Corpuscular Hemoglobin 30.1 pg (28.0-32.0); Mean Corpuscular Hgb Conc. 34.3 g/dL (32.0-36.0); Mean Corpuscular Volume 87.6 fL (80.0-100.0); Monocytes # (auto) 0.6 10 ^3/uL (0-1.3); Neutrophils # (auto) 2.8 10 ^3/uL (1.6-8.6); Neutrophils % (auto) 56.2 % (37.0-80.0); Nucleated Red Blood Cells % 0.4 %; Platelet Count (auto) 282 10^3/uL (140-450); Red Blood Cells 5.36 10^6/uL (4.5-5.90); Red Cell Distribution Width 14.1 % (11.8-14.3); White Blood Cell 5.1 10^3/uL (4.4-10.8)
[2020-06-09 13:25] LABS: Albumin 3.8 g/dL (3.4-5.0); BUN/Creatinine Ratio 14.7; Potassium 4.3 mmol/L (3.5-5.1)
[2020-06-09 13:34] LABS: Bilirubin, Total 0.5 mg/dL (0.2-1.0); Total Protein 7.5 g/dL (6.4-8.2)
== END 2020-06-09 14:10 | disposition home or self-care (01) ==
LOC: ER 10:35
DX: T78.40XA Allergy, unspecified, initial encounter (principal); N39.0 Urinary tract infection, site not specified; J44.9 Chronic obstructive pulmonary disease, unspecified; I10 Essential (primary) hypertension; Z87.442 Personal history of urinary calculi; Z88.0 Allergy status to penicillin; X58.XXXA Exposure to other specified factors, initial encounter
CPT/HCPCS: 36415; 80053; 81001; 83690; 85025

== ENCOUNTER 2020-06-11 17:10 | Emergency (ER) | payer MEDICARE, MEDICAID ==
[~2020-06-11] VITALS: Ht 172.7 cm; Wt 90.7 kg
[2020-06-11 18:47] LABS: Basophils # (auto) 0.1 10 ^3/uL (0-0.2); Basophils % (auto) 1.5 % (0.0-2.0); Eosinophils # (auto) 0.1 10 ^3/uL (0-0.8); Eosinophils % (auto) 1.4 % (0.0-7.0); Hematocrit 47.2 % (41.0-53.0); Hemoglobin 16.2 g/dL (13.5-17.5); Lymphocytes # (auto) 1.6 10 ^3/uL (0.4-5.4); Lymphocytes % (auto) 24.7 % (10.0-50.0); Mean Corpuscular Hemoglobin 29.9 pg (28.0-32.0); Mean Corpuscular Hgb Conc. 34.4 g/dL (32.0-36.0); Mean Corpuscular Volume 87.1 fL (80.0-100.0); Monocytes # (auto) 0.7 10 ^3/uL (0-1.3); Monocytes % (auto) 11.4 % (0.0-12.0); Neutrophils # (auto) 3.9 10 ^3/uL (1.6-8.6); Nucleated Red Blood Cells % 0.3 %; Red Blood Cells 5.42 10^6/uL (4.5-5.90); Red Cell Distribution Width 14.2 % (11.8-14.3); White Blood Cell 6.4 10^3/uL (4.4-10.8)
[2020-06-11 19:08] LABS: Albumin 4.2 g/dL (3.4-5.0); BUN/Creatinine Ratio 11.2; Calcium 9.3 mg/dL (8.5-10.1); Magnesium 2.3 mg/dL (1.6-2.6); Potassium 3.8 mmol/L (3.5-5.1)
[2020-06-11 19:11] LABS: Bilirubin, Total 0.5 mg/dL (0.2-1.0); Total Protein 7.8 g/dL (6.4-8.2)
[2020-06-11] MEDS ORDERED: cefTRIAXone W LIDOCAINE 500 MG IM IM ONE (19:30)
[2020-06-11 20:35] LABS: Urine Bacteria NONE SEEN /hpf (None Seen); Urine Blood Negative /uL (Negative); Urine Specific Gravity 1.002 (1.001-1.035); Urine Sperm PRESENT /hpf (None Seen); Urine WBC <1 /hpf (0 - 3)
[2020-06-11] MEDS ORDERED: LIDOCAINE 2% (LOCAL ANESTH.) PF 5ml SDV ONE (21:32)
[2020-06-11] MEDS ORDERED: cefTRIAXone SOD 500 MG VL ONE (21:33)
[2020-06-11 22:00] VITALS: BP 157/94
== END 2020-06-11 22:12 | disposition home or self-care (01) ==
LOC: ER 17:12
DX: R30.0 Dysuria (principal); R35.0 Frequency of micturition; I10 Essential (primary) hypertension; Z20.2 Contact with and (suspected) exposure to infections with a predominantly sexual mode of transmission; Z79.899 Other long term (current) drug therapy; Z88.2 Allergy status to sulfonamides; Z88.0 Allergy status to penicillin
CPT/HCPCS: 36415; 80053; 81001; 83605; 83735; 85025; 96372; 99283; J0696; J2001

== ENCOUNTER → 2020-06-15 | Outpatient (CLI) | payer MEDICARE, MEDICAID | END | disposition home or self-care (01) | LOC: Rad HDHVI 09:44 | PROVIDERS: ATTEND Internal Medicine | DX: R06.02 Shortness of breath (principal); Z88.0 Allergy status to penicillin; Z88.2 Allergy status to sulfonamides | CPT/HCPCS: 71046 ==

== ENCOUNTER 2020-06-17 08:22 | Emergency (ER) | payer MEDICARE, MEDICAID ==
[~2020-06-17] VITALS: Ht 172.7 cm; Wt 90.7 kg
[2020-06-17 10:12] LABS: Alanine Aminotransferase 43 U/L (16-61); Albumin 3.3 g/dL (3.4-5.0); Anion Gap 7 (5-15); Aspartate Aminotransferase 18 U/L (15-37); BUN/Creatinine Ratio 13.8; Blood Urea Nitrogen 16 mg/dL (7-18); Calcium 8.3 mg/dL (8.5-10.1); Carbon Dioxide 24 mmol/L (21-32); Chloride 109 mmol/L (98-107); GFR African American 82 mL/min; GFR Non-African American 68 mL/min; Glucose 85 mg/dL (74-106); Potassium 4.2 mmol/L (3.5-5.1); Sodium 140 mmol/L (136-145)
[2020-06-17 10:14] LABS: INR 0.97 (0.9-1.15)
[2020-06-17 10:15] LABS: Basophils # (auto) 0.1 10 ^3/uL (0-0.2); Basophils % (auto) 1.3 % (0.0-2.0); Eosinophils # (auto) 0.1 10 ^3/uL (0-0.8); Eosinophils % (auto) 2.7 % (0.0-7.0); Hematocrit 44.6 % (41.0-53.0); Hemoglobin 15.1 g/dL (13.5-17.5); Lymphocytes # (auto) 1.5 10 ^3/uL (0.4-5.4); Lymphocytes % (auto) 26.6 % (10.0-50.0); Mean Corpuscular Hemoglobin 29.9 pg (28.0-32.0); Mean Corpuscular Volume 88.1 fL (80.0-100.0); Monocytes # (auto) 0.7 10 ^3/uL (0-1.3); Monocytes % (auto) 13.1 % (0.0-12.0); Neutrophils # (auto) 3.1 10 ^3/uL (1.6-8.6); Neutrophils % (auto) 56.3 % (37.0-80.0); Platelet Count (auto) 230 10^3/uL (140-450); Red Blood Cells 5.06 10^6/uL (4.5-5.90); Red Cell Distribution Width 14.5 % (11.8-14.3); White Blood Cell 5.5 10^3/uL (4.4-10.8)
[2020-06-17 10:17] LABS: Alkaline Phosphatase 88 U/L (45-117); Bilirubin, Total 0.3 mg/dL (0.2-1.0); Total Protein 6.8 g/dL (6.4-8.2)
[2020-06-17 12:00] VITALS: BP 129/79
== END 2020-06-17 12:53 | disposition home or self-care (01) ==
LOC: ER 08:22
DX: R07.89 Other chest pain (principal); J44.9 Chronic obstructive pulmonary disease, unspecified; I10 Essential (primary) hypertension; Z90.49 Acquired absence of other specified parts of digestive tract; Z20.822 Contact with and (suspected) exposure to COVID-19; Z87.442 Personal history of urinary calculi; Z88.0 Allergy status to penicillin
CPT/HCPCS: 36415; 71045; 80053; 83735; 83880; 84484; 85025; 85610; 87426; 93005

== ENCOUNTER 2020-06-28 07:53 | Emergency (ER) | payer MEDICARE, MEDICAID ==
[~2020-06-28] VITALS: Ht 172.7 cm; Wt 90.7 kg
[2020-06-28 08:09] VITALS: BP 144/102
[2020-06-28 08:51] LABS: Basophils # (auto) 0 10 ^3/uL (0-0.2); Basophils % (auto) 0.6 % (0.0-2.0); Eosinophils # (auto) 0.1 10 ^3/uL (0-0.8); Eosinophils % (auto) 1.5 % (0.0-7.0); Hematocrit 50.4 % (41.0-53.0); Hemoglobin 17.1 g/dL (13.5-17.5); Lymphocytes # (auto) 1.3 10 ^3/uL (0.4-5.4); Lymphocytes % (auto) 21.4 % (10.0-50.0); Mean Corpuscular Hemoglobin 29.8 pg (28.0-32.0); Mean Corpuscular Volume 87.8 fL (80.0-100.0); Monocytes # (auto) 0.6 10 ^3/uL (0-1.3); Monocytes % (auto) 10.3 % (0.0-12.0); Neutrophils % (auto) 66.2 % (37.0-80.0); Nucleated Red Blood Cells % 0.1 %; Platelet Count (auto) 258 10^3/uL (140-450); Red Blood Cells 5.74 10^6/uL (4.5-5.90); Red Cell Distribution Width 14.3 % (11.8-14.3); White Blood Cell 6.1 10^3/uL (4.4-10.8)
[2020-06-28 09:06] LABS: Albumin 3.9 g/dL (3.4-5.0); Calcium 8.9 mg/dL (8.5-10.1); Potassium 4.2 mmol/L (3.5-5.1)
[2020-06-28 09:09] LABS: Bilirubin, Total 0.7 mg/dL (0.2-1.0); Total Protein 7.6 g/dL (6.4-8.2)
== END 2020-06-28 09:39 | disposition home or self-care (01) ==
LOC: ER 07:53
DX: B34.9 Viral infection, unspecified (principal); H60.92 Unspecified otitis externa, left ear; J44.9 Chronic obstructive pulmonary disease, unspecified; I10 Essential (primary) hypertension; Z87.442 Personal history of urinary calculi; Z90.49 Acquired absence of other specified parts of digestive tract; Z88.0 Allergy status to penicillin
CPT/HCPCS: 36415; 71046; 80053; 85025; 93005

== ENCOUNTER 2020-07-03 16:46 | Emergency (ER) | payer MEDICARE, MEDICAID ==
[~2020-07-03] VITALS: Ht 172.7 cm; Wt 90.7 kg
[2020-07-03 17:53] LABS: Basophils # (auto) 0.1 10 ^3/uL (0-0.2); Basophils % (auto) 1.6 % (0.0-2.0); Eosinophils # (auto) 0.2 10 ^3/uL (0-0.8); Eosinophils % (auto) 3.5 % (0.0-7.0); Hematocrit 45.9 % (41.0-53.0); Hemoglobin 15.5 g/dL (13.5-17.5); Lymphocytes # (auto) 1.8 10 ^3/uL (0.4-5.4); Lymphocytes % (auto) 28.9 % (10.0-50.0); Mean Corpuscular Hemoglobin 29.7 pg (28.0-32.0); Mean Corpuscular Hgb Conc. 33.8 g/dL (32.0-36.0); Mean Corpuscular Volume 87.9 fL (80.0-100.0); Monocytes # (auto) 0.8 10 ^3/uL (0-1.3); Monocytes % (auto) 12.3 % (0.0-12.0); Neutrophils # (auto) 3.3 10 ^3/uL (1.6-8.6); Neutrophils % (auto) 53.7 % (37.0-80.0); Nucleated Red Blood Cells % 0.1 %; Platelet Count (auto) 249 10^3/uL (140-450); Red Blood Cells 5.22 10^6/uL (4.5-5.90); Red Cell Distribution Width 14.2 % (11.8-14.3); White Blood Cell 6.2 10^3/uL (4.4-10.8)
[2020-07-03 18:09] LABS: Albumin 3.5 g/dL (3.4-5.0); Anion Gap 4 (5-15); Blood Urea Nitrogen 17 mg/dL (7-18); Calcium 8.7 mg/dL (8.5-10.1); Carbon Dioxide 25 mmol/L (21-32); Chloride 111 mmol/L (98-107); Glucose 83 mg/dL (74-106); Magnesium 2.4 mg/dL (1.6-2.6); Potassium 5.1 mmol/L (3.5-5.1); Sodium 140 mmol/L (136-145)
[2020-07-03 18:14] LABS: INR 0.98 (0.9-1.15); Partial Thromboplastin Time 25.1 sec (23.0-31.2)
[2020-07-03 18:15] LABS: Alanine Aminotransferase 44 U/L (16-61); Alkaline Phosphatase 88 U/L (45-117); Aspartate Aminotransferase 39 U/L (15-37); BUN/Creatinine Ratio 15.3; Bilirubin, Total 0.3 mg/dL (0.2-1.0); GFR African American 87 mL/min; GFR Non-African American 72 mL/min; Total Protein 7.5 g/dL (6.4-8.2)
[2020-07-03 18:46] VITALS: BP 146/77
== END 2020-07-03 19:12 | disposition home or self-care (01) ==
LOC: ER 16:46
DX: J01.00 Acute maxillary sinusitis, unspecified (principal); N41.9 Inflammatory disease of prostate, unspecified; R59.0 Localized enlarged lymph nodes; K02.9 Dental caries, unspecified; F41.9 Anxiety disorder, unspecified; J44.9 Chronic obstructive pulmonary disease, unspecified; I10 Essential (primary) hypertension; Z20.822 Contact with and (suspected) exposure to COVID-19; Z87.442 Personal history of urinary calculi; Z79.899 Other long term (current) drug therapy; Z88.0 Allergy status to penicillin; Z88.2 Allergy status to sulfonamides
CPT/HCPCS: 36415; 71045; 80053; 83735; 83880; 84443; 84484; 85025; 85379; 85610; 85730; 87426; 93005

== ENCOUNTER → 2020-07-20 | Outpatient (CLI) | payer MEDICARE, MEDICAID ==
[2020-07-20 12:18] LABS: Urine Blood Negative /uL (Negative); Urine Specific Gravity 1.009 (1.001-1.035)
== END | disposition home or self-care (01) ==
LOC: LAB 11:05
PROVIDERS: ATTEND Internal Medicine Cardiovascular Disease
DX: N39.0 Urinary tract infection, site not specified (principal)
CPT/HCPCS: 81003

== ENCOUNTER 2020-07-23 10:01 | Emergency (ER) | payer MEDICARE, MEDICAID ==
[~2020-07-23] VITALS: Ht 172.7 cm; Wt 90.7 kg
[2020-07-23] MEDS ORDERED: SODIUM CHLORIDE 0.9% 1,000 ML IV ONE ×2 (10:30)
[2020-07-23 10:32] LABS: Basophils # (auto) 0 10 ^3/uL (0-0.2); Basophils % (auto) 0.6 % (0.0-2.0); Eosinophils # (auto) 0.1 10 ^3/uL (0-0.8); Eosinophils % (auto) 1.3 % (0.0-7.0); Hematocrit 48.8 % (41.0-53.0); Hemoglobin 16.6 g/dL (13.5-17.5); Lymphocytes # (auto) 1.3 10 ^3/uL (0.4-5.4); Lymphocytes % (auto) 25.3 % (10.0-50.0); Mean Corpuscular Hemoglobin 30.5 pg (28.0-32.0); Mean Corpuscular Hgb Conc. 34.1 g/dL (32.0-36.0); Mean Corpuscular Volume 89.6 fL (80.0-100.0); Monocytes # (auto) 0.5 10 ^3/uL (0-1.3); Monocytes % (auto) 10.4 % (0.0-12.0); Neutrophils # (auto) 3.3 10 ^3/uL (1.6-8.6); Neutrophils % (auto) 62.4 % (37.0-80.0); Nucleated Red Blood Cells % 0.1 %; Platelet Count (auto) 229 10^3/uL (140-450); Red Blood Cells 5.44 10^6/uL (4.5-5.90); Red Cell Distribution Width 14.6 % (11.8-14.3); White Blood Cell 5.3 10^3/uL (4.4-10.8)
[2020-07-23 11:22] VITALS: BP 149/87
[2020-07-23 11:31] LABS: Urine Bacteria NONE SEEN /hpf (None Seen); Urine Blood Negative /uL (Negative); Urine Specific Gravity 1.013 (1.001-1.035); Urine WBC 6 /hpf (0 - 3)
[2020-07-23 11:55] LABS: Albumin 3.8 g/dL (3.4-5.0); Calcium 8.7 mg/dL (8.5-10.1); Potassium 4.1 mmol/L (3.5-5.1)
[2020-07-23 11:59] LABS: BUN/Creatinine Ratio 14.4; Bilirubin, Total 0.5 mg/dL (0.2-1.0); Total Protein 7.1 g/dL (6.4-8.2)
== END 2020-07-23 12:50 | disposition home or self-care (01) ==
LOC: ER 10:01
DX: N40.0 Benign prostatic hyperplasia without lower urinary tract symptoms (principal); R53.83 Other fatigue; J44.9 Chronic obstructive pulmonary disease, unspecified; I10 Essential (primary) hypertension; Z90.49 Acquired absence of other specified parts of digestive tract; Z88.0 Allergy status to penicillin; Z87.442 Personal history of urinary calculi
CPT/HCPCS: 36415; 80053; 81001; 85025; 93005; 99284; J7030

== ENCOUNTER 2020-12-02 15:46 | Emergency (ER) | payer MEDICARE, MEDICAID ==
[~2020-12-02] VITALS: Ht 172.7 cm; Wt 88.5 kg
[2020-12-02] MEDS ORDERED: IBUPROFEN 600 MG TAB PO ONE (16:30)
[2020-12-02 17:30] LABS: Basophils # (auto) 0.1 10 ^3/uL (0-0.2); Basophils % (auto) 1.5 % (0.0-2.0); Eosinophils # (auto) 0.2 10 ^3/uL (0-0.8); Eosinophils % (auto) 3.3 % (0.0-7.0); Hematocrit 46.8 % (41.0-53.0); Hemoglobin 16.2 g/dL (13.5-17.5); Lymphocytes # (auto) 1.8 10 ^3/uL (0.4-5.4); Lymphocytes % (auto) 31.1 % (10.0-50.0); Mean Corpuscular Hgb Conc. 34.6 g/dL (32.0-36.0); Mean Corpuscular Volume 86.8 fL (80.0-100.0); Monocytes # (auto) 0.8 10 ^3/uL (0-1.3); Monocytes % (auto) 13.6 % (0.0-12.0); Neutrophils # (auto) 2.9 10 ^3/uL (1.6-8.6); Neutrophils % (auto) 50.5 % (37.0-80.0); Nucleated Red Blood Cells % 0.1 %; Red Blood Cells 5.39 10^6/uL (4.5-5.90); Red Cell Distribution Width 13.5 % (11.8-14.3); White Blood Cell 5.8 10^3/uL (4.4-10.8)
[2020-12-02 17:33] LABS: Urine Bacteria NONE SEEN /hpf (None Seen); Urine Blood Negative /uL (Negative); Urine WBC 3 /hpf (0 - 3)
[2020-12-02 17:56] LABS: Alanine Aminotransferase 67 U/L (16-61); Alkaline Phosphatase 114 U/L (45-117); Aspartate Aminotransferase 39 U/L (15-37); Bilirubin, Total 0.4 mg/dL (0.2-1.0); GFR African American 80 mL/min; GFR Non-African American 66 mL/min; Total Protein 7.4 g/dL (6.4-8.2)
[2020-12-02 17:57] LABS: Albumin 3.5 g/dL (3.4-5.0); Anion Gap 4 (5-15); BUN/Creatinine Ratio 10.9; Blood Urea Nitrogen 13 mg/dL (7-18); Calcium 8.5 mg/dL (8.5-10.1); Carbon Dioxide 24 mmol/L (21-32); Chloride 112 mmol/L (98-107); Glucose 93 mg/dL (74-106); Potassium 4.3 mmol/L (3.5-5.1); Sodium 140 mmol/L (136-145)
[2020-12-02 21:30] VITALS: BP 139/91
== END 2020-12-02 22:53 | disposition home or self-care (01) ==
LOC: ER 15:46
DX: R07.89 Other chest pain (principal); I10 Essential (primary) hypertension; J44.9 Chronic obstructive pulmonary disease, unspecified; J45.909 Unspecified asthma, uncomplicated; Z90.49 Acquired absence of other specified parts of digestive tract; Z20.822 Contact with and (suspected) exposure to COVID-19; Z87.442 Personal history of urinary calculi
CPT/HCPCS: 36415; 71045; 80053; 81001; 84484; 85025; 87426; 93005

== ENCOUNTER → 2020-12-14 | Outpatient (CLI) | payer MEDICARE, MEDICAID | END | disposition home or self-care (01) | LOC: LAB 16:05 | PROVIDERS: ATTEND Nurse Practitioner Family | DX: Z20.822 Contact with and (suspected) exposure to COVID-19 (principal) | CPT/HCPCS: C9803; U0003 ==

== ENCOUNTER 2021-02-08 14:52 | Emergency (ER) | payer MEDICARE, MEDICAID ==
[~2021-02-08] VITALS: Ht 175.3 cm; Wt 95.3 kg
[2021-02-08 16:25] LABS: Basophils # (auto) 0.1 10 ^3/uL (0-0.2); Basophils % (auto) 1.2 % (0.0-2.0); Eosinophils # (auto) 0.1 10 ^3/uL (0-0.8); Eosinophils % (auto) 2.4 % (0.0-7.0); Hematocrit 51.2 % (41.0-53.0); Hemoglobin 17.1 g/dL (13.5-17.5); Lymphocytes # (auto) 1.4 10 ^3/uL (0.4-5.4); Lymphocytes % (auto) 26.7 % (10.0-50.0); Mean Corpuscular Hemoglobin 28.5 pg (28.0-32.0); Mean Corpuscular Hgb Conc. 33.3 g/dL (32.0-36.0); Mean Corpuscular Volume 85.7 fL (80.0-100.0); Monocytes # (auto) 0.6 10 ^3/uL (0-1.3); Monocytes % (auto) 11.5 % (0.0-12.0); Neutrophils # (auto) 3.1 10 ^3/uL (1.6-8.6); Neutrophils % (auto) 58.2 % (37.0-80.0); Nucleated Red Blood Cells % 0.1 %; Red Blood Cells 5.98 10^6/uL (4.5-5.90); Red Cell Distribution Width 14.1 % (11.8-14.3); White Blood Cell 5.4 10^3/uL (4.4-10.8)
[2021-02-08 16:37] LABS: Albumin 3.9 g/dL (3.4-5.0); Potassium 4.1 mmol/L (3.5-5.1)
[2021-02-08 16:40] LABS: BUN/Creatinine Ratio 9.6; Bilirubin, Total 0.4 mg/dL (0.2-1.0); Total Protein 7.7 g/dL (6.4-8.2)
[2021-02-08 18:03] LABS: Urine Bacteria FEW /hpf (None Seen); Urine Blood Negative /uL (Negative); Urine Specific Gravity 1.009 (1.001-1.035); Urine Sperm PRESENT /hpf (None Seen); Urine WBC 1 /hpf (0 - 3)
[2021-02-08 19:30] VITALS: BP 148/94
== END 2021-02-08 19:45 | disposition home or self-care (01) ==
LOC: ER 14:52
DX: R53.83 Other fatigue (principal); F41.9 Anxiety disorder, unspecified; J44.9 Chronic obstructive pulmonary disease, unspecified; I10 Essential (primary) hypertension; Z88.0 Allergy status to penicillin; Z88.2 Allergy status to sulfonamides; Z79.899 Other long term (current) drug therapy; Z87.442 Personal history of urinary calculi; Z90.49 Acquired absence of other specified parts of digestive tract
CPT/HCPCS: 36415; 80053; 81001; 85025

== ENCOUNTER 2021-02-10 08:40 | Emergency (ER) | payer MEDICARE, MEDICAID ==
[~2021-02-10] VITALS: Ht 175.3 cm; Wt 95.3 kg
[2021-02-10 08:40] VITALS: BP 147/99
[2021-02-10 09:41] LABS: Basophils # (auto) 0.1 10 ^3/uL (0-0.2); Basophils % (auto) 1.1 % (0.0-2.0); Eosinophils # (auto) 0.1 10 ^3/uL (0-0.8); Eosinophils % (auto) 2.6 % (0.0-7.0); Hematocrit 50.1 % (41.0-53.0); Hemoglobin 16.7 g/dL (13.5-17.5); Lymphocytes # (auto) 1.3 10 ^3/uL (0.4-5.4); Lymphocytes % (auto) 25.2 % (10.0-50.0); Mean Corpuscular Hemoglobin 29.2 pg (28.0-32.0); Mean Corpuscular Hgb Conc. 33.4 g/dL (32.0-36.0); Mean Corpuscular Volume 87.3 fL (80.0-100.0); Monocytes # (auto) 0.6 10 ^3/uL (0-1.3); Monocytes % (auto) 11.5 % (0.0-12.0); Neutrophils % (auto) 59.6 % (37.0-80.0); Nucleated Red Blood Cells % 0.1 %; Red Blood Cells 5.73 10^6/uL (4.5-5.90); Red Cell Distribution Width 14.2 % (11.8-14.3)
[2021-02-10 10:00] LABS: Albumin 3.6 g/dL (3.4-5.0); BUN/Creatinine Ratio 12.2; Calcium 8.6 mg/dL (8.5-10.1); Potassium 4.1 mmol/L (3.5-5.1)
[2021-02-10 10:03] LABS: Bilirubin, Total 0.6 mg/dL (0.2-1.0); Total Protein 7.4 g/dL (6.4-8.2)
[2021-02-10 10:20] LABS: Urine Bacteria NONE SEEN /hpf (None Seen); Urine Blood Negative /uL (Negative); Urine Mucus FEW (None Seen); Urine Specific Gravity 1.019 (1.001-1.035); Urine WBC 2 /hpf (0 - 3)
== END 2021-02-10 11:44 | disposition home or self-care (01) ==
LOC: ER 08:40
DX: F41.9 Anxiety disorder, unspecified (principal); I10 Essential (primary) hypertension; J44.9 Chronic obstructive pulmonary disease, unspecified; K76.0 Fatty (change of) liver, not elsewhere classified; B37.9 Candidiasis, unspecified; I45.10 Unspecified right bundle-branch block; Z87.442 Personal history of urinary calculi; Z90.49 Acquired absence of other specified parts of digestive tract; Z01.812 Encounter for preprocedural laboratory examination; Z88.0 Allergy status to penicillin; Z88.2 Allergy status to sulfonamides; Z79.899 Other long term (current) drug therapy
CPT/HCPCS: 36415; 71045; 80053; 81001; 83690; 85025; 93005

== ENCOUNTER → 2021-10-22 | Outpatient (CLI) | payer MEDICARE, MEDICAID ==
[~2021-10-22] VITALS: Ht 175.3 cm; Wt 98.4 kg
[~2021-10-22] MED LIST changes: +ADENOSINE 83 MG in GIVE UN-DILUTED 0 ML IV ONE; +ADENOSINE 90 MG/30 ML INJ IV ONE
== END | disposition home or self-care (01) ==
LOC: Rad HDHVI 12:49
PROVIDERS: ATTEND Internal Medicine Cardiovascular Disease
DX: I10 Essential (primary) hypertension (principal); E78.5 Hyperlipidemia, unspecified; J44.9 Chronic obstructive pulmonary disease, unspecified; Z82.49 Family history of ischemic heart disease and other diseases of the circulatory system
CPT/HCPCS: 78452; 93005; 96374; 96375; A9500; J0153

== ENCOUNTER → 2021-12-16 | Outpatient (CLI) | payer MEDICARE, MEDICAID ==
[~2021-12-16] MED LIST changes: -ADENOSINE 83 MG in GIVE UN-DILUTED 0 ML IV ONE; -ADENOSINE 90 MG/30 ML INJ IV ONE
== END | disposition home or self-care (01) ==
LOC: LAB 10:32
PROVIDERS: ATTEND Internal Medicine Cardiovascular Disease
DX: B58.9 Toxoplasmosis, unspecified (principal)
CPT/HCPCS: 86777; 86778

== ENCOUNTER 2023-02-19 06:35 | Day surgery (SDC) | payer MEDICARE, MEDICAID ==
[2023-02-16 11:52] LABS: Basophils # (auto) 0 10 ^3/uL (0-0.2); Basophils % (auto) 0.8 % (0.0-2.0); Eosinophils # (auto) 0.2 10 ^3/uL (0-0.8); Hematocrit 48.1 % (41.0-53.0); Hemoglobin 16.2 g/dL (13.5-17.5); Lymphocytes # (auto) 1.6 10 ^3/uL (0.4-5.4); Lymphocytes % (auto) 30.3 % (10.0-50.0); Mean Corpuscular Hemoglobin 29.4 pg (28.0-32.0); Mean Corpuscular Hgb Conc. 33.6 g/dL (32.0-36.0); Mean Corpuscular Volume 87.7 fL (80.0-100.0); Monocytes # (auto) 0.6 10 ^3/uL (0-1.3); Monocytes % (auto) 11.9 % (0.0-12.0); Neutrophils # (auto) 2.8 10 ^3/uL (1.6-8.6); Nucleated Red Blood Cells % 0.3 %; Red Blood Cells 5.49 10^6/uL (4.5-5.90); Red Cell Distribution Width 14.7 % (11.8-14.3); White Blood Cell 5.2 10^3/uL (4.4-10.8)
[2023-02-16 12:09] LABS: INR 0.98 (0.9-1.15); Partial Thromboplastin Time 26.9 SEC (24.5-34.5); Prothrombin Time 10.3 sec (9.3-11.8)
[2023-02-16 12:35] LABS: Chloride 108 mmol/L (98-107); Potassium 4.4 mmol/L (3.5-5.1); Sodium 139 mmol/L (136-145)
[2023-02-16 12:36] LABS: Anion Gap 9 (5-15); Carbon Dioxide 22 mmol/L (20-30)
[2023-02-16 12:41] LABS: BUN/Creatinine Ratio 10.2 (10.0-20.0); Blood Urea Nitrogen 11 mg/dL (9-23); Glucose 103 mg/dL (74-106)
[2023-02-19] VITALS (10 sets, daily range): BP systolic 115–129; BP diastolic 78–84; PULSE 65–72; RESP 11–14; TEMP 98; O2SAT 92–95
[~2023-02-19] VITALS: Ht 175.3 cm; Wt 100.7 kg
[~2023-02-19 06:35] MED LIST changes: +ALBU108A14 IN; +ALPR1TAB7 PO; +ASCO500T11 PO; +ATEN50TA PO; +CITA10TA8 PO; +DEXL60CA7 PO; +HYDR-4188 PO; +HYDR-4798 PO; +HYDR200T36 PO; +IBUP-1455 PO; +LEVO125T7 PO; +METH4PAK PO; +OLME1TAB69 PO; +OLME20TA53 PO; +POTA8TAB38 PO; +SILD100T57 PO; +TAMS-35 PO; +TRIA37.587 PO
[2023-02-19] MEDS ORDERED: fentaNYL CITRATE 100 MCG/2 ML VL ONE (09:15)
[2023-02-19] MEDS ORDERED: ANGIOMAX 250 MG VIAL IV ONE (09:15)
[2023-02-19] MEDS ORDERED: LIDOCAINE 2%HCL (LOCAL ANESTH.) INJ 20ML MDV ONE ×2 (09:15→09:28)
[2023-02-19] MEDS ORDERED: MIDAZOLAM HCL 2MG/2ML 2ml VIAL (1mg/ml) ONE (09:15)
[2023-02-19] MEDS ORDERED: SODIUM CHL 0.9% 0 ML ONE (09:16)
[2023-02-19] MEDS ORDERED: IOHEXOL 350 MG/ML 100ML IJ ONE (09:16)
== END 2023-02-19 12:05 | disposition home or self-care (01) ==
LOC: CATH 06:35
PROVIDERS: ATTEND Internal Medicine Cardiovascular Disease
DX: R07.89 Other chest pain (principal); K75.9 Inflammatory liver disease, unspecified; I10 Essential (primary) hypertension; Z79.899 Other long term (current) drug therapy; F41.9 Anxiety disorder, unspecified; R06.02 Shortness of breath
CPT/HCPCS: 36415; 80048; 85025; 85610; 85730; 93458; C1894; J1644; J2250; J3010; J7040; Q9967; 99152; 99153

== ENCOUNTER 2023-07-28 15:10 | Emergency (ER) | payer MEDICARE, MEDICAID ==
[~2023-07-28] VITALS: Ht 175.3 cm; Wt 89.2 kg
[~2023-07-28 15:10] MED LIST changes: -HYDR-4188 PO; +HYDR-4491 PO; -OLME1TAB69 PO; +OLME5TAB22 PO; +SILD100T PO; -SILD100T57 PO
[2023-07-28 16:31] LABS: Urine Bacteria NONE SEEN /hpf (None Seen); Urine Blood Negative /uL (Negative); Urine Clarity Clear (Clear); Urine Color Colorless (Yellow); Urine Protein, UAD Negative (Negative); Urine Specific Gravity 1.002 (1.001-1.035); Urine Urobilinogen Normal (Negative); Urine WBC 1 /hpf (0 - 3)
[2023-07-28 17:56] LABS: Basophils # (auto) 0.1 10 ^3/uL (0-0.2); Basophils % (auto) 0.9 % (0.0-2.0); Eosinophils # (auto) 0.2 10 ^3/uL (0-0.8); Hematocrit 49.9 % (41.0-53.0); Hemoglobin 16.6 g/dL (13.5-17.5); Lymphocytes # (auto) 1.5 10 ^3/uL (0.4-5.4); Lymphocytes % (auto) 18.8 % (10.0-50.0); Mean Corpuscular Hemoglobin 29.5 pg (28.0-32.0); Mean Corpuscular Hgb Conc. 33.2 g/dL (32.0-36.0); Mean Corpuscular Volume 88.7 fL (80.0-100.0); Monocytes # (auto) 0.8 10 ^3/uL (0-1.3); Monocytes % (auto) 10.5 % (0.0-12.0); Neutrophils # (auto) 5.3 10 ^3/uL (1.6-8.6); Neutrophils % (auto) 67.8 % (37.0-80.0); Nucleated Red Blood Cells % 0.2 %; Red Blood Cells 5.62 10^6/uL (4.5-5.90); Red Cell Distribution Width 14.1 % (11.8-14.3); White Blood Cell 7.8 10^3/uL (4.4-10.8)
[2023-07-28 18:04] LABS: Alanine Aminotransferase 28 U/L (7-40); Albumin 4.4 g/dL (3.2-4.8); Alkaline Phosphatase 120 U/L (46-116); Anion Gap 5 (5-15); Aspartate Aminotransferase 13 U/L (13-40); Bilirubin, Total 0.5 mg/dL (0.2-1.0); Blood Urea Nitrogen 13 mg/dL (9-23); Calcium 9.8 mg/dL (8.7-10.4); Carbon Dioxide 23 mmol/L (20-30); Chloride 108 mmol/L (98-107); Glucose 101 mg/dL (74-106); Sodium 136 mmol/L (136-145); Total Protein 7.4 g/dL (5.7-8.2)
[2023-07-28 19:09] VITALS: BP 132/79; PULSE 79; RESP 19; O2SAT 99
== END 2023-07-28 19:11 | disposition home or self-care (01) ==
LOC: ER 15:10
DX: K76.0 Fatty (change of) liver, not elsewhere classified (principal); R51.9 Headache, unspecified; F41.9 Anxiety disorder, unspecified; J44.9 Chronic obstructive pulmonary disease, unspecified; I10 Essential (primary) hypertension; Z98.890 Other specified postprocedural states; Z88.0 Allergy status to penicillin; Z88.2 Allergy status to sulfonamides; Z79.899 Other long term (current) drug therapy
CPT/HCPCS: 36415; 80053; 81001; 85025

== ENCOUNTER 2023-08-03 20:16 | Emergency (ER) | payer MEDICARE, MEDICAID ==
[~2023-08-03] VITALS: Ht 167.6 cm; Wt 91.4 kg
[2023-08-03 20:46] LABS: Urine Bacteria None Seen /hpf (None Seen)
[2023-08-03 20:57] LABS: Urine Blood Negative /uL (Negative); Urine Clarity Clear (Clear); Urine Color Colorless (Yellow); Urine Protein, UAD Negative (Negative); Urine Specific Gravity 1.009 (1.001-1.035); Urine Urobilinogen Normal (Negative); Urine WBC 2 /hpf (0 - 3)
[2023-08-03 21:01] LABS: Basophils # (auto) 0 10 ^3/uL (0-0.2); Basophils % (auto) 0.5 % (0.0-2.0); Eosinophils # (auto) 0.2 10 ^3/uL (0-0.8); Eosinophils % (auto) 3.6 % (0.0-7.0); Hematocrit 49.8 % (41.0-53.0); Hemoglobin 16.2 g/dL (13.5-17.5); Lymphocytes # (auto) 1.8 10 ^3/uL (0.4-5.4); Lymphocytes % (auto) 29.3 % (10.0-50.0); Mean Corpuscular Hemoglobin 29.4 pg (28.0-32.0); Mean Corpuscular Hgb Conc. 32.6 g/dL (32.0-36.0); Mean Corpuscular Volume 90.4 fL (80.0-100.0); Monocytes # (auto) 0.6 10 ^3/uL (0-1.3); Monocytes % (auto) 9.2 % (0.0-12.0); Neutrophils # (auto) 3.5 10 ^3/uL (1.6-8.6); Neutrophils % (auto) 57.4 % (37.0-80.0); Nucleated Red Blood Cells % 0.1 %; Red Cell Distribution Width 14.4 % (11.8-14.3); White Blood Cell 6.2 10^3/uL (4.4-10.8)
[2023-08-03 21:17] LABS: Alanine Aminotransferase 22 U/L (7-40); Albumin 4.3 g/dL (3.2-4.8); Alkaline Phosphatase 112 U/L (46-116); Anion Gap 10 (5-15); Aspartate Aminotransferase 12 U/L (13-40); BUN/Creatinine Ratio 11.1 (10.0-20.0); Bilirubin, Total 0.2 mg/dL (0.2-1.0); Blood Urea Nitrogen 14 mg/dL (9-23); Calcium 9.7 mg/dL (8.7-10.4); Carbon Dioxide 18 mmol/L (20-30); Chloride 110 mmol/L (98-107); Glucose 106 mg/dL (74-106); Lipase 60 U/L (12-53); Potassium 4.1 mmol/L (3.5-5.1); Sodium 138 mmol/L (136-145)
[2023-08-04 00:45] VITALS: BP 121/78; PULSE 64; RESP 16; O2SAT 96
== END 2023-08-04 00:46 | disposition home or self-care (01) ==
LOC: ER 20:16
DX: R10.9 Unspecified abdominal pain (principal); I10 Essential (primary) hypertension; F41.9 Anxiety disorder, unspecified; J44.9 Chronic obstructive pulmonary disease, unspecified; Z98.890 Other specified postprocedural states; Z88.0 Allergy status to penicillin; Z88.8 Allergy status to other drugs, medicaments and biological substances; Z79.899 Other long term (current) drug therapy
CPT/HCPCS: 36415; 74176; 80053; 81001; 83690; 85025

== ENCOUNTER → 2023-09-02 | Outpatient (CLI) | payer MEDICARE, MEDICAID | END | disposition home or self-care (01) | LOC: Rad HDHVI 09:50 | PROVIDERS: ATTEND Internal Medicine Cardiovascular Disease | DX: I77.810 Thoracic aortic ectasia (principal); I10 Essential (primary) hypertension; R00.2 Palpitations | CPT/HCPCS: 93306 ==

== ENCOUNTER 2023-09-15 12:28 | Inpatient (IN) | payer MEDICARE, MEDICAID ==
[~2023-09-15] VITALS: Ht 172.7 cm; Wt 90.5 kg
[2023-09-15 13:10] VITALS: O2SAT 92
[2023-09-15 13:39] LABS: Basophils # (auto) 0 10 ^3/uL (0-0.2); Basophils % (auto) 0.4 % (0.0-2.0); Eosinophils # (auto) 0.1 10 ^3/uL (0-0.8); Eosinophils % (auto) 2.2 % (0.0-7.0); Hematocrit 49.4 % (41.0-53.0); Hemoglobin 16.4 g/dL (13.5-17.5); Lymphocytes # (auto) 1.3 10 ^3/uL (0.4-5.4); Lymphocytes % (auto) 21.1 % (10.0-50.0); Mean Corpuscular Hemoglobin 29.8 pg (28.0-32.0); Mean Corpuscular Hgb Conc. 33.1 g/dL (32.0-36.0); Mean Corpuscular Volume 89.8 fL (80.0-100.0); Monocytes # (auto) 0.7 10 ^3/uL (0-1.3); Monocytes % (auto) 11.7 % (0.0-12.0); Neutrophils # (auto) 3.9 10 ^3/uL (1.6-8.6); Neutrophils % (auto) 64.6 % (37.0-80.0); Nucleated Red Blood Cells % 0.1 %; Red Cell Distribution Width 14.8 % (11.8-14.3); White Blood Cell 6.1 10^3/uL (4.4-10.8)
[2023-09-15 14:02] LABS: Alanine Aminotransferase 31 U/L (7-40); Albumin 4.1 g/dL (3.2-4.8); Alkaline Phosphatase 112 U/L (46-116); Anion Gap 7 (5-15); Aspartate Aminotransferase 18 U/L (13-40); BUN/Creatinine Ratio 10.6 (10.0-20.0); Blood Urea Nitrogen 12 mg/dL (9-23); Calcium 9.6 mg/dL (8.7-10.4); Carbon Dioxide 23 mmol/L (20-30); Chloride 110 mmol/L (98-107); Glucose 118 mg/dL (74-106); Magnesium 2.1 mg/dL (1.6-2.6); Sodium 140 mmol/L (136-145)
[2023-09-15 14:03] LABS: Bilirubin, Total 0.5 mg/dL (0.2-1.0); Total Protein 6.8 g/dL (5.7-8.2)
[2023-09-15] MEDS: SODIUM CHLORIDE 0.9% 500 ML IV ONE (14:07)
[2023-09-15] MEDS: NITROGLYCERIN 0.4 MG SL TAB SL ONE (14:09)
[2023-09-15] MEDS: ASPirin 325 MG TAB PO ONE (14:21)
[2023-09-15] MEDS ORDERED: HYDROcodone-ACET 5/325MG TAB PO PRN (16:45)
[2023-09-15] MEDS ORDERED: DOCUSATE SOD 100 MG CAP PO PRN (16:45)
[2023-09-15] MEDS ORDERED: ACETAMINOPHEN 325 MG TAB PO PRN (16:45)
[2023-09-15] MEDS ORDERED: ONDANSETRON HCL 4 MG/2 ML VIAL IV PRN (16:45)
[2023-09-15] MEDS ORDERED: MORPHINE SULFATE INJ 2 MG/ml SYRG IV PRN ×2 (16:45)
[2023-09-15] MEDS ORDERED: NITROGLYCERIN 0.4 MG SL TAB SL PRN (16:45)
[2023-09-15 16:59] LABS: Urine Bacteria FEW /hpf (None Seen); Urine Blood Negative /uL (Negative); Urine Clarity Clear (Clear); Urine Color Colorless (Yellow); Urine Protein, UAD Negative (Negative); Urine Specific Gravity 1.009 (1.001-1.035); Urine Urobilinogen Normal (Negative); Urine WBC <1 /hpf (0 - 3)
[2023-09-15] MEDS ORDERED: PATIENTS OWN MEDICATION (Alprazolam 1 TAB) PO PRN (17:00)
[2023-09-15] MEDS ORDERED: IPRATROPIUM BROM 0.5 MG/2.5ML INH SOL NEB PRN (17:00)
[2023-09-15] MEDS ORDERED: TAMSULOSIN HYDROCHLORIDE 0.4 MG CAP PO PRN (17:00)
[2023-09-15] MEDS ORDERED: ALBUTEROL SULF 2.5 MG/0.5ML(0.5%) NEB SOLN NEB PRN (17:00)
[2023-09-15 17:05] LABS: Amphetamine Screen, Urine Neg (NEGATIVE); Barbiturate Scree,Urine Neg (NEGATIVE); Benzodiazephine Screen, Urine Pos (NEGATIVE); Cocaine Screen, Urine Neg (NEGATIVE); Opiate Scree,Urine Neg (NEGATIVE)
[2023-09-15 17:06] LABS: Cannabinoid Screen, Urine Neg (NEGATIVE); Phencyclidine Screen, Urine Neg (NEGATIVE)
[2023-09-15 17:30] VITALS: BP 131/89; PULSE 73; RESP 15; TEMP 98.9; O2SAT 95
[2023-09-15 19:35] VITALS: PULSE 65; RESP 13; O2SAT 90
[2023-09-15] MEDS: ATORVASTATIN 20 MG TAB PO SCH (22:44)
[2023-09-16] VITALS (8 sets, daily range): BP systolic 102–136; BP diastolic 67–86; PULSE 54–83; RESP 15–18; TEMP 97.6–98.4; O2SAT 94–99
[2023-09-16] MEDS: LEVOTHYROXINE SODIUM 25 MCG TAB PO SCH (06:03)
[2023-09-16] MEDS: LEVOTHYROXINE SODIUM 100 MCG TAB PO SCH (06:03)
[2023-09-16 06:32] LABS: Basophils # (auto) 0 10 ^3/uL (0-0.2); Basophils % (auto) 0.8 % (0.0-2.0); Eosinophils # (auto) 0.2 10 ^3/uL (0-0.8); Eosinophils % (auto) 2.8 % (0.0-7.0); Hematocrit 47.5 % (41.0-53.0); Hemoglobin 15.7 g/dL (13.5-17.5); Lymphocytes # (auto) 1.8 10 ^3/uL (0.4-5.4); Lymphocytes % (auto) 27.7 % (10.0-50.0); Mean Corpuscular Hemoglobin 29.6 pg (28.0-32.0); Mean Corpuscular Hgb Conc. 33.1 g/dL (32.0-36.0); Mean Corpuscular Volume 89.5 fL (80.0-100.0); Monocytes # (auto) 0.7 10 ^3/uL (0-1.3); Monocytes % (auto) 11.2 % (0.0-12.0); Neutrophils # (auto) 3.7 10 ^3/uL (1.6-8.6); Neutrophils % (auto) 57.5 % (37.0-80.0); Nucleated Red Blood Cells % 0.1 %; Red Blood Cells 5.31 10^6/uL (4.5-5.90); Red Cell Distribution Width 14.4 % (11.8-14.3); White Blood Cell 6.4 10^3/uL (4.4-10.8)
[2023-09-16 06:50] LABS: Alanine Aminotransferase 25 U/L (7-40); Albumin 4.1 g/dL (3.2-4.8); Alkaline Phosphatase 107 U/L (46-116); Anion Gap 4 (5-15); Aspartate Aminotransferase 13 U/L (13-40); BUN/Creatinine Ratio 8.9 (10.0-20.0); Blood Urea Nitrogen 9 mg/dL (9-23); Calcium 9.5 mg/dL (8.5-10.1); Carbon Dioxide 26 mmol/L (20-30); Chloride 110 mmol/L (98-107); Cholesterol 149 mg/dL (< 200); Glucose 105 mg/dL (74-106); HDL Cholesterol 45 mg/dL (40-59); LDL Cholesterol 92 mg/dL (< 100); Sodium 140 mmol/L (136-145); Triglycerides 133 mg/dL (< 150)
[2023-09-16 06:51] LABS: Bilirubin, Total 0.4 mg/dL (0.2-1.0); Total Protein 6.5 g/dL (5.7-8.2)
[2023-09-16] MEDS: ATENOLOL 25 MG TAB PO SCH (10:00)
[2023-09-16] MEDS: PANTOPRAZOLE 40 MG/10 ML VIAL INJ IV SCH (10:00)
[2023-09-16] MEDS: LOSARTAN POTASSIUM 50 MG TAB PO SCH (10:00)
[2023-09-16] MEDS ORDERED: PATIENTS OWN MEDICATION (Levothyroxine Sodium 1 TAB) PO SCH (10:00)
[2023-09-16] MEDS: ENOXAPARIN SOD 40 MG/0.4 ML SYRINGE SC SCH (10:01)
[2023-09-16] MEDS: ASPirin-EC 81 mg tab PO SCH (10:02)
== END 2023-09-16 18:03 | disposition home or self-care (01) | DRG 310 ==
LOC: ER 12:28 → TELE 16:43 → TELE-EAST 09-16 03:38
PROVIDERS: ADMIT Nurse Practitioner Family; ATTEND Internal Medicine Cardiovascular Disease
DX: R00.2 Palpitations (principal); I45.10 Unspecified right bundle-branch block; I10 Essential (primary) hypertension; E03.9 Hypothyroidism, unspecified; F41.9 Anxiety disorder, unspecified; M35.00 Sjogren syndrome, unspecified; E66.9 Obesity, unspecified; K21.9 Gastro-esophageal reflux disease without esophagitis; J44.9 Chronic obstructive pulmonary disease, unspecified; K75.81 Nonalcoholic steatohepatitis (NASH); I25.10 Atherosclerotic heart disease of native coronary artery without angina pectoris; K75.9 Inflammatory liver disease, unspecified; Z90.49 Acquired absence of other specified parts of digestive tract; Z68.30 Body mass index [BMI] 30.0-30.9, adult; Z79.899 Other long term (current) drug therapy
CPT/HCPCS: 36415; 71045; 80053; 80061; 80307; 81001; 83605; 83735; 83880; 84443; 84484; 85025; 93005; 96360; G0378; J2405

== ENCOUNTER 2023-12-30 12:48 | Inpatient (IN) | payer MEDICARE, MEDICAID ==
[~2023-12-30] VITALS: Ht 175.3 cm; Wt 97.0 kg
[2023-12-30 13:18] LABS: Urine Bacteria None Seen /hpf (None Seen)
[2023-12-30 13:51] LABS: Urine Blood Negative /uL (Negative); Urine Clarity Clear (Clear); Urine Color Light-Yellow (Yellow); Urine Protein, UAD Negative (Negative); Urine Specific Gravity 1.023 (1.001-1.035); Urine Urobilinogen Normal (Negative); Urine WBC <1 /hpf (0 - 3); Urine pH 5.5 (5.0-9.0)
[2023-12-30 14:16] LABS: Basophils # (auto) 0 10 ^3/uL (0-0.2); Basophils % (auto) 0.6 % (0.0-2.0); Eosinophils # (auto) 0.2 10 ^3/uL (0-0.8); Eosinophils % (auto) 2.1 % (0.0-7.0); Hematocrit 48.1 % (41.0-53.0); Hemoglobin 16.5 g/dL (13.5-17.5); Lymphocytes # (auto) 1.7 10 ^3/uL (0.4-5.4); Lymphocytes % (auto) 22.9 % (10.0-50.0); Mean Corpuscular Hemoglobin 30.6 pg (28.0-32.0); Mean Corpuscular Hgb Conc. 34.4 g/dL (32.0-36.0); Monocytes # (auto) 0.9 10 ^3/uL (0-1.3); Monocytes % (auto) 11.9 % (0.0-12.0); Neutrophils # (auto) 4.7 10 ^3/uL (1.6-8.6); Neutrophils % (auto) 62.5 % (37.0-80.0); Nucleated Red Blood Cells % 0.1 %; Platelet Count (auto) 238 10^3/uL (140-450); Red Cell Distribution Width 14.4 % (11.8-14.3); White Blood Cell 7.5 10^3/uL (4.4-10.8)
[2023-12-30 14:30] LABS: Alanine Aminotransferase 39 U/L (7-40); Albumin 4.3 g/dL (3.2-4.8); Alkaline Phosphatase 113 U/L (46-116); Anion Gap 8 (5-15); Aspartate Aminotransferase 19 U/L (13-40); BUN/Creatinine Ratio 19.3 (10.0-20.0); Bilirubin, Total 0.3 mg/dL (0.2-1.0); Blood Urea Nitrogen 21 mg/dL (9-23); Calcium 9.6 mg/dL (8.7-10.4); Carbon Dioxide 24 mmol/L (20-30); Chloride 106 mmol/L (98-107); Glucose 104 mg/dL (74-106); Potassium 3.9 mmol/L (3.5-5.1); Sodium 138 mmol/L (136-145); Total Protein 6.7 g/dL (5.7-8.2)
[2023-12-30 14:45] LABS: INR 0.97 (0.9-1.15); Partial Thromboplastin Time 25.2 SEC (24.5-34.5); Prothrombin Time 10.3 sec (9.3-11.8)
[2023-12-30] MEDS: ALBUTEROL SULF 2.5 MG/0.5ML(0.5%) NEB SOLN NEB ONE (16:14)
[2023-12-30] MEDS: IPRATROPIUM BROM 0.5 MG/2.5ML INH SOL NEB ONE (16:15)
[2023-12-30] MEDS ORDERED: TAMSULOSIN HYDROCHLORIDE 0.4 MG CAP PO PRN (18:00)
[2023-12-30] MEDS ORDERED: ONDANSETRON HCL 4 MG/2 ML VIAL IV PRN (18:00)
[2023-12-30] MEDS ORDERED: HYDROmorphone HCL 2 MG/ML VL/or syr IV PRN (18:00)
[2023-12-30] MEDS ORDERED: ACETAMINOPHEN 325 MG TAB PO PRN (18:00)
[2023-12-30] MEDS ORDERED: DOCUSATE SOD 100 MG CAP PO PRN (18:00)
[2023-12-30] MEDS ORDERED: NITROGLYCERIN 0.4 MG SL TAB SL PRN (18:00)
[2023-12-30] MEDS ORDERED: HYDROcodone-ACET 5/325MG TAB PO PRN (18:00)
[2023-12-30] MEDS ORDERED: ASCORBIC ACID 500 MG TAB PO SCH (18:00)
[2023-12-30] MEDS: IPRATROPIUM BROM 0.5 MG/2.5ML INH SOL NEB SCH (18:45)
[2023-12-30] MEDS: ALBUTEROL SULF 2.5 MG/0.5ML(0.5%) NEB SOLN NEB SCH (18:45)
[2023-12-30] MEDS: FUROSEMIDE 40 MG/4 ML VIAL IV ONE (20:15)
[2023-12-30] MEDS: methylPREDNISolone SOD SUCC 125 MG/2 ML VL IV ONE (20:16)
[2023-12-30] MEDS: methylPREDNISolone SOD SUCC 125 MG/2 ML VL IV SCH (20:17)
[2023-12-30] MEDS: SODIUM CHLOR 0.9% PF (SALINE LOCK) 10ML VIAL/SYR IV SCH (22:03)
[2023-12-30 22:22] VITALS: PULSE 89; RESP 18; O2SAT 95
[2023-12-30 23:00] VITALS: RESP 18; O2SAT 95
[2023-12-30 23:32] VITALS: BP 115/78; PULSE 89; RESP 18; TEMP 98.2; O2SAT 95
[2023-12-31] VITALS (10 sets, daily range): BP systolic 127–135; BP diastolic 74–75; PULSE 74–94; RESP 16–20; TEMP 97.7–98; O2SAT 94–99
[2023-12-31] MEDS: MORPHINE SULFATE INJ 2 MG/ml SYRG IV PRN (01:54)
[2023-12-31 04:56] LABS: Basophils # (auto) 0 10 ^3/uL (0-0.2); Basophils % (auto) 0.4 % (0.0-2.0); Eosinophils # (auto) 0 10 ^3/uL (0-0.8); Eosinophils % (auto) 0.2 % (0.0-7.0); Hematocrit 47.9 % (41.0-53.0); Hemoglobin 16.1 g/dL (13.5-17.5); Lymphocytes # (auto) 0.8 10 ^3/uL (0.4-5.4); Lymphocytes % (auto) 11.2 % (10.0-50.0); Mean Corpuscular Hemoglobin 29.8 pg (28.0-32.0); Mean Corpuscular Hgb Conc. 33.6 g/dL (32.0-36.0); Mean Corpuscular Volume 88.7 fL (80.0-100.0); Monocytes # (auto) 0.1 10 ^3/uL (0-1.3); Monocytes % (auto) 1.4 % (0.0-12.0); Neutrophils # (auto) 6.5 10 ^3/uL (1.6-8.6); Neutrophils % (auto) 86.8 % (37.0-80.0); Nucleated Red Blood Cells % 0.2 %; Platelet Count (auto) 210 10^3/uL (140-450); Red Cell Distribution Width 13.9 % (11.8-14.3); White Blood Cell 7.4 10^3/uL (4.4-10.8)
[2023-12-31 05:19] LABS: Alanine Aminotransferase 39 U/L (7-40); Albumin 4.4 g/dL (3.2-4.8); Alkaline Phosphatase 107 U/L (46-116); Anion Gap 12 (5-15); Aspartate Aminotransferase 20 U/L (13-40); BUN/Creatinine Ratio 10.8 (10.0-20.0); Bilirubin, Total 0.3 mg/dL (0.2-1.0); Blood Urea Nitrogen 15 mg/dL (9-23); Calcium 9.3 mg/dL (8.7-10.4); Carbon Dioxide 18 mmol/L (20-30); Chloride 104 mmol/L (98-107); Magnesium 2.1 mg/dL (1.6-2.6); Potassium 3.7 mmol/L (3.5-5.1); Sodium 134 mmol/L (136-145)
[2023-12-31 05:31] LABS: Glucose 216 mg/dL (74-106)
[2023-12-31] MEDS: LEVOTHYROXINE SODIUM 100 MCG TAB PO SCH (10:10)
[2023-12-31] MEDS: FAMOTIDINE 20 MG TAB PO SCH ×2 (10:10→21:37)
[2023-12-31] MEDS: ENOXAPARIN SOD 40 MG/0.4 ML SYRINGE SC SCH (10:10)
[2023-12-31] MEDS: CITALOPRAM HYDROBR 20 MG TAB PO SCH (10:10)
[2023-12-31] MEDS: hydrOXYchloroQUINE SULFATE 200 MG TAB PO SCH (10:10)
[2023-12-31] MEDS: ATENOLOL 25 MG TAB PO SCH (10:11)
[2023-12-31] MEDS: PANTOPRAZOLE 40 MG/10 ML VIAL INJ IV SCH (10:26)
[2023-12-31] MEDS: LEVOTHYROXINE SODIUM 25 MCG TAB PO SCH (10:27)
[2023-12-31 10:39] LABS: Rapid Influenza A Negative (Negative); Rapid Influenza B Negative (Negative)
[2023-12-31 10:40] LABS: COVID19 ANTIGEN SOFIA FIA NEGATIVE (NEGATIVE)
[2023-12-31] MEDS: MONTELUKAST SODIUM 10 MG TAB PO ONE (12:39)
[2023-12-31] MEDS ORDERED: ALPRAZolam 0.5 MG TAB PO PRN (14:30)
[2023-12-31] MEDS: BUDESONIDE (INHALATION) 0.5 MG/2 ML NEB NEB ONE (16:05)
[2023-12-31] MEDS: BUDESONIDE (INHALATION) 0.5 MG/2 ML NEB NEB SCH (19:35)
[2024-01-01] VITALS (12 sets, daily range): BP systolic 106–127; BP diastolic 59–76; PULSE 65–90; RESP 16–18; TEMP 97.6–98.4; O2SAT 92–99
[2024-01-01] MEDS ORDERED: PILO5TAB10 PO (10:11)
[2024-01-01] MEDS ORDERED: AMIT10TA12 PO (10:11)
[2024-01-01] MEDS ORDERED: FLUT1AER3 IN (10:11)
[2024-01-01] MEDS ORDERED: ACYC1TAB2 PO (10:11)
[2024-01-01] MEDS: MONTELUKAST SODIUM 10 MG TAB PO SCH (21:13)
[2024-01-02] VITALS (8 sets, daily range): BP systolic 118–142; BP diastolic 62–85; PULSE 62–88; RESP 14–20; TEMP 97.6–98.4; O2SAT 93–97
[2024-01-03] VITALS (10 sets, daily range): BP systolic 119–140; BP diastolic 72–85; PULSE 54–67; RESP 14–18; TEMP 98–98.6; O2SAT 94–99
[2024-01-04 01:00] VITALS: BP 130/70; PULSE 57; RESP 17; TEMP 97.8; O2SAT 96
[2024-01-04 05:00] VITALS: BP 114/74; PULSE 63; RESP 16; TEMP 98; O2SAT 99
[2024-01-04 07:15] VITALS: O2SAT 97
[2024-01-04 07:16] VITALS: O2SAT 97
[2024-01-04 09:06] VITALS: BP 144/96; PULSE 67; RESP 16; TEMP 97.6; O2SAT 97
[2024-01-04] MEDS ORDERED: LEVO500T91 PO (11:17)
[2024-01-04] MEDS ORDERED: PRED20TA2 PO (11:17)
[2024-01-04 11:55] VITALS: BP 144/96; PULSE 67; TEMP 36.4
== END 2024-01-04 12:22 | disposition home or self-care (01) | DRG 190 ==
LOC: ER 12:48 → TELE 17:55 → TELE-WESTW 18:01
PROVIDERS: ADMIT Internal Medicine; ATTEND Internal Medicine
DX: J44.1 Chronic obstructive pulmonary disease with (acute) exacerbation (principal); J96.01 Acute respiratory failure with hypoxia; N17.0 Acute kidney failure with tubular necrosis; E87.1 Hypo-osmolality and hyponatremia; I50.32 Chronic diastolic (congestive) heart failure; J44.0 Chronic obstructive pulmonary disease with (acute) lower respiratory infection; J43.9 Emphysema, unspecified; Z20.822 Contact with and (suspected) exposure to COVID-19; J20.9 Acute bronchitis, unspecified; E87.6 Hypokalemia; M06.9 Rheumatoid arthritis, unspecified; I25.10 Atherosclerotic heart disease of native coronary artery without angina pectoris; K76.0 Fatty (change of) liver, not elsewhere classified; E66.9 Obesity, unspecified; I11.0 Hypertensive heart disease with heart failure; E03.9 Hypothyroidism, unspecified; G47.30 Sleep apnea, unspecified; Z68.31 Body mass index [BMI] 31.0-31.9, adult; Z90.49 Acquired absence of other specified parts of digestive tract; Z80.0 Family history of malignant neoplasm of digestive organs; Z79.899 Other long term (current) drug therapy; Z82.49 Family history of ischemic heart disease and other diseases of the circulatory system; Z80.3 Family history of malignant neoplasm of breast; Z83.3 Family history of diabetes mellitus; Z87.891 Personal history of nicotine dependence
CPT/HCPCS: 36415; 71045; 80053; 81001; 83735; 83880; 84443; 84484; 85025; 85379; 85610; 85730; 87426; 87804; 93005; 94640; G0378; J2470

== ENCOUNTER 2024-08-13 10:42 | Emergency (ER) | payer MEDICARE, MEDICAID ==
[~2024-08-13] VITALS: Ht 172.7 cm; Wt 97.5 kg
[~2024-08-13 10:42] MED LIST changes: +ACYC1TAB2 PO; -ALPR1TAB7 PO; +AMIT10TA12 PO; -ASCO500T11 PO; -ATEN-60 PO; +CARI250T PO; -CITA10TA8 PO; -DEXL60CA7 PO; -FAMO20TA10 PO; +FLUT1AER3 IN; -HYDR-4491 PO; -IBUP-1455 PO; -LEVO125T PO; +LEVO500T91 PO; -METH4PAK PO; -OLME5TAB22 PO; +PILO5TAB10 PO; -POTA8TAB38 PO; +PRED20TA2 PO; -SILD100T PO; -TRIA37.587 PO
[2024-08-13] MEDS: DONNATAL 5ml ORAL Elix (BELLADONNA ALK-PHENOBARB) PO ONE (11:00)
--- NOTE | 2024-08-13 11:01 | ECG ---
[facility] Test Date: 2024-08-13 Test Time: 10:58:50 Pat Name: JUAN HALL Department: ER Room: Gender: M Silk Opener: KARTHIK : 1960 Requested By: JONAS KINNEY Order Number: [id number] Reading MD: Measurements Intervals [place] Rate: 73 P: 26 MS: 171 QRS: -60 QRSD: 146 T: -17 QT: 404 QTc: 446 Interpretive Statements Sinus rhythm Right bundle branch block Inferior infarct, age indeterminate Baseline wander in lead(s) I,aVR Please click the below link to view image of tracing.
[2024-08-13 11:04] LABS: Urine Bacteria None Seen /hpf (None Seen)
--- NOTE | 2024-08-13 11:05 | ED.PDOC ---
GI ASSESSMENT HPI Comments 63 year old male presents to the ED with chief complaint of abdominal pain. Patient reports that he has been experiencing epigastric and LUQ abdominal pain for the past 3 days with associated diarrhea for the past 2 days that has since resolved and nausea. Patient states his pain and nausea is improved by eating. Patient states he has history of gastritis and his pain is described as a burning itchiness. Patient notes he had eaten a lot of carne asada for one week straight, after which he developed the pain. Patient reports that he had an MRI performed at [facility] for his liver, finding that he had fatty liver and a borderline enlarged spleen. Pt expresses concern that his pain may be due to the enlarged spleen. Patient denies any fever, vomiting, hematemesis, melena, dizziness, chest pain, or SOB. Time Seen by MD: 11:00 Primary Care Provider: DAY Reviewed Notes: Nurses Notes, Medications, Allergies Allergies: Coded Allergies: Penicillins (Verified Adverse Reaction, Unknown, 09/15/23) SENSITIVITY PER PT, NOT ALLERGY Sulfa Antibiotics (Verified Adverse Reaction, Unknown, 09/15/23) SENSITIVITY PER PT, NOT ALLERGY Home Meds Active Scripts Carisoprodol (Soma) 250 Mg Tab, 250 MG PO Q12HP PRN for 3 Days, #6 TAB Prov:LEONILA HOWARD NP 02/15/24 Levofloxacin Hemihydrate (LEVAQUIN 500 MG) 500 Mg Tab, 500 MG PO DAILY for 5 Days, #5 TAB Prov:JAYDEN FERGUSON MD 01/04/24 Prednisone (Prednisone) 20 Mg Tab, 20 MG PO QAM for 5 Days, #10 MG Prov:JAYDEN FERGUSON MD 01/04/24 Reported Medications Pilocarpine Hcl (Salagen) 5 Mg Tab, 5 MG PO BID, TAB 01/01/24 Acyclovir (Acyclovir) 400 Mg Tab, 400 MG PO DAILY, TAB 01/01/24 Hydroxychloroquine Sulfate (Hydroxychloroquine Sulfat) 200 Mg Tab, 200 MG PO DAILY, MG 01/01/24 Amitriptyline Hcl (Amitriptyline Hcl) 10 Mg Tab, 10 MG PO HS, MG 01/01/24 Dyvdcyiraws-Onkzhwlkvspr-Aosfj (Trelegy Ellipta 100-62.5-25 Mcg/INH) 1 Aer Aer, 1 AER IN DAILY, AER 01/01/24 Atenolol (Atenolol) 50 Mg Tab, 50 MG PO DAILY, TAB 01/01/24 Olmesartan Medoxomil (Benicar) 20 Mg Tab, 1 TAB PO DAILY for HTN, #30 TAB 5 R efills 02/16/23 Hydrocodone-Acetaminophen (Hydrocodone Bitartrate/AC 10-325 mg) 1 Tab Tab, 1 TAB PO TID PRN for PAIN SCALE 7 THRU 10, TAB 02/16/23 Tamsulosin Hcl (Flomax) 0.4 Mg Cap, 1 CAP PO DAILY 02/16/23 Albuterol Sulfate (Proair Digihaler) 108 Mcg/Act Aer, 108 MCG IN BIDP PRN for FOR COUGH, AER 02/16/23 Levothyroxine Sodium (Levothyroxine Sodium) 125 Mcg Tab, 1 TAB PO DAILY 12/19/22 Dexlansoprazole (Dexilant) 60 Mg Cap, 60 MG PO DAILY for GERD, CAP 10/16/17 Alprazolam (Xanax) 1 Mg Tab, 1 TAB PO TID, #60 TAB 10/16/17 Information Source: Patient Mode of Arrival: Ambulatory Timing: Days Duration: Since onset Prehospital treatment: None Quality: Burning, Other (Itchiness) Vomitus: None Stool: Loose Severity: Moderate Recent: None Recent Hx of: None Pain Location: LUQ Modifying Factors: Food Associated sign and symptoms: Nausea, Diarrhea, Abdominal Pain Past Medical History PAST MEDICAL HISTORY: Anxiety, Asthma, COPD, HTN, Liver, Thyroid, UTI'S Past Medical History (Other): Gastritis Surgical History: Cholecystectomy Family History Family History: Family hx of DM, Family hx of Cancer, Family hx of heart brian Social History Smoker: Non-Smoker Alcohol: Denies ETOH Use Drugs: Denies Drug Use Lives In: Home Constitutional: denies: chills, diaphoresis, fatigue, fever, malaise, sweats, weakness, others EENTM: denies: blurred vision, double vision, ear bleeding, ear discharge, ear drainage, ear pain, ear ringing, eye pain, eye redness, hearing loss, mouth pain, mouth swelling, nasal discharge, nose bleeding, nose congestion, nose pain, photophobia, tearing, throat pain, throat swelling, voice changes, others Respiratory: denies: cough, hemoptysis, orthopnea, SOB at rest, shortness of breath, SOB with excertion, stridor, wheezing, others Cardiovascular: denies: chest pain, dizzy spells, diaphoresis, Dyspnea on exertion, edema, irregular heart beat, left arm pain, lightheadedness, palpitations, PND, syncope, others Gastrointestinal: reports: abdominal pain, diarrhea, nausea; denies: abdomen distended, blood streaked bowels, constipated, dysphagia, difficulty swallowing, hematemesis, melena, poor appetite, poor fluid intake, rectal bleeding, rectal pain, vomiting, others Genitourinary: denies: burning, dysuria, flank pain, frequency, hematuria, incontinence, penile discharge, penile sore, pain, testicle pain, testicle swelling, urgency, others Neurological: denies: dizziness, fainting, headache, left sided numbness, left sided weakness, numbness, paresthesia, pre-existing deficit, right sided numbness, right sided weakness, seizure, speech problems, tingling, tremors, weakness, others Musculoskeletal: denies: back pain, gout, joint pain, joint swelling, muscle pain, muscle stiffness, neck pain, others Integumetry: denies: bruises, change in color, change in hair/nails, dryness, laceration, lesions, lumps, rash, wounds, others Allergic/Immunocompromised: denies: Difficulty Healing, Frequent Infections, Hives, Itching, others Hematologic/Lymphatic: denies: anemia, blood clots, easy bleeding, easy bruising, swollen glands, others Endocrine: denies: excessive hunger, excessive sweating, excessive thirst, excessive urination, flushing, intolerance to cold, intolerance to heat, unexplained weight gain, unexplained weight loss, others Psychiatric: denies: anxiety, bipolar disorder, depression, hopeless, panic disorder, schizophrenia, sleepless, suicidal, others All Other Systems: Reviewed and Negative Physical Exam General Appearance: No Apparent Distress, Obese HEENT: Other (Pupils and face symmetric. Moist mucous membranes.) Neck: Full Range of Motion, Normal Inspection Respiratory: Lungs Clear, No Accessory Muscle Use, No Respiratory Distress, Normal Breath Sounds Cardiovascular: No Edema, No JVD, Regular Rate/Rhythm Breast Exam: Deferred Gastrointestinal: Epigastric, LUQ, Soft, Tenderness Genitalia: Deferred Pelvic: Deferred Rectal: Deferred Extremities: Normal inspection, Normal range of motion, Non-tender, No pedal edema Musculoskeletal : Apperance: Normal Neurologic: Alert (Oriented x4), Normal Affect, Normal Mood, Other (Ambulatory without difficulty) Cerebellar Function: NOT DONE Reflexes: NOT DONE Skin: Dry, Normal Color, Warm Lymphatic: NOT DONE EKG EKG : Comments Sinus rhythm, rate 73, normal HI interval, QRS slightly prolonged at 146, normal QTC interval, left axis deviation, old inferior infarct, right bundle branch block, nonspecific T changes. Was a procedure done? Was a procedure done?: No GI differential Dx Differential Diagnosis: Esophagitis, Gastritis/PUD, Gastroenteritis, Hepatitis, Inflammatory BD, Ischemic Bowel, Pancreatitis, UTI, Food Poisoning, Bacterial, Viral, Stress Ulcer, Other (ACS, OR, splenomegaly, among others) X-Ray, Labs, Meds, VS Vital Signs Date Time Temp Pulse Resp B/P (MAP) Pulse Ox O2 Delivery O2 Flow Rate FiO2 08/13/24 12:20 71 18 97 Room Air* 0 21 08/13/24 12:16 71 18 97 Room Air 08/13/24 12:16 97.9 71 18 111/65 (80) 97 97.9 08/13/24 10:58 73 08/13/24 10:55 97.9 72 18 122/78 (93) 98 97.9 Lab Test 08/13/24 12:52 08/13/24 11:29 08/13/24 10:50 Range/Units Troponin I High Sensitivity 3 L 3 L </=54 ng/L White Blood Count 4.9 4.4-10.8 10^3/uL Red Blood Count 5.51 4.5-5.90 10^6/uL Hemoglobin 16.5 13.5-17.5 g/dL Hematocrit 48.8 41.0-53.0 % Mean Corpuscular Volume 88.5 80.0-100.0 fL Mean Corpuscular Hemoglobin 30.0 28.0-32.0 pg Mean Corpuscular Hemoglobin Concent 33.9 32.0-36.0 g/dL Red Cell Distribution Width 15.1 H 11.8-14.3 % Platelet Count 189 140-450 10^3/uL Mean Platelet Volume 7.3 6.9-10.8 fL Neutrophils (%) (Auto) 65.1 37.0-80.0 % Lymphocytes (%) (Auto) 22.8 10.0-50.0 % Monocytes (%) (Auto) 7.8 0.0-12.0 % Eosinophils (%) (Auto) 4.0 0.0-7.0 % Basophils (%) (Auto) 0.3 0.0-2.0 % Neutrophils # (Auto) 3.2 1.6-8.6 10 ^3/uL Lymphocytes # (Auto) 1.1 0.4-5.4 10 ^3/uL Monocytes # (Auto) 0.4 0-1.3 10 ^3/uL Eosinophils # (Auto) 0.2 0-0.8 10 ^3/uL Basophils # (Auto) 0 0-0.2 10 ^3/uL Nucleated Red Blood Cells 0.1 % Sodium Level 137 136-145 mmol/L Potassium Level 4.2 3.5-5.1 mmol/L Chloride Level 106 98-107 mmol/L Carbon Dioxide Level 23 20-31 mmol/L Anion Gap 8 5-15 Blood Urea Nitrogen 13 9-23 mg/dL Creatinine 1.31 H 0.700-1.30 mg/dL Glomerular Filtration Rate Calc 60 >90 mL/min BUN/Creatinine Ratio 9.9 L 10.0-20.0 Serum Glucose 141 H 74-106 mg/dL Calcium Level 9.5 8.7-10.4 mg/dL Total Bilirubin 0.8 0.2-1.0 mg/dL Aspartate Amino Transferase (AST) 29 13-40 U/L Alanine Aminotransferase (ALT) 50 H 7-40 U/L Alkaline Phosphatase 106 46-116 U/L B-Type Natriuretic Peptide 2.74 0-100 pg/mL Total Protein 7.0 5.7-8.2 g/dL Albumin 4.4 3.2-4.8 g/dL Lipase 51 12-53 U/L Urine Color Yellow Yellow Urine Clarity Clear Clear Urine pH 5.5 5.0-9.0 Urine Specific [place] 1.022 1.001-1.035 Urine Protein Negative Negative Urine Ketones 2+ H Negative Urine Blood Negative Negative /uL Urine Nitrite Negative Negative Urine Bilirubin Negative Negative Urine Urobilinogen Normal Negative mg/dL Urine Leukocyte Esterase Negative Negative /uL Urine RBC None seen 0 - 3 /hpf Urine Microscopic WBC 5 H 0-3 /HPF Urine Squamous Epithelial Cells None seen <5 /hpf Urine Bacteria None seen None Seen /hpf Urine Mucus Few None Seen Urine Glucose Normal Normal mg/dL Current Medications Medications (Trade) Dose Ordered Sig/Lee Route Start Time Stop Time Status Last Admin Pantoprazole Sodium (Protonix) 40 mg ONCE ONCE IV 08/13/24 11:00 08/13/24 11:01 DC 08/13/24 12:33 Belladonna Alkaloids/ Phenobarbital ( Elixir) 10 ml ONCE ONCE PO 08/13/24 11:00 08/13/24 11:01 DC 08/13/24 11:00 Al Hydrox/Mg Hydrox/Simethicone (Maalox Plus) 30 ml ONCE ONCE PO 08/13/24 11:00 08/13/24 11:01 DC 08/13/24 12:14 Lidocaine HCl (Xylocaine 2% Viscous) 10 ml ONCE ONCE PO 08/13/24 11:00 08/13/24 11:01 DC 08/13/24 12:15 CT Abd/Pel: FINDINGS: Lung bases: Lung bases are clear. Liver: Hepatic steatosis. Biliary: Cholecystectomy. Spleen: Unremarkable. Pancreas: Grossly unremarkable in its noncontrast enhanced appearance. Adrenal glands: Unremarkable. No mass. Kidneys: Subcentimeter low-attenuation lesion in the midpole of the right kidney, too small to characterize, appears grossly similar compared with the prior CT. No renal or ureteral calculi. No hydronephrosis. Aorta/Vascular: Scattered atherosclerotic calcification. No abdominal aortic aneurysm. Retroperitoneum: No mass or lymphadenopathy. Bowel/mesentery: No small bowel obstruction. No free air or free fluid. Appendix is visualized and appears unremarkable. Scattered colonic diverticula without adjacent inflammatory changes to suggest diverticulitis. The stomach is mildly distended with ingested material Pelvic organs: Prostate is enlarged, with impression on the bladder base. Bladder: Unremarkable. No mass. Abdominal wall: No mass or hernia. Bones: No acute fracture or suspicious intraosseous lesion. IMPRESSION: 1. No hydronephrosis and no renal or ureteral calculi. 2. Hepatic steatosis. 3. Scattered colonic diverticula without adjacent inflammatory changes to suggest diverticulitis. 4. Mildly distended stomach. 5. Enlarged prostate. 6. Additional findings as detailed above. X-Ray, Labs, Meds, VS Comment 63-year-old male with a history of hypertension, COPD, thyroid disease, gastritis and fatty liver complaining of epigastric and left upper quadrant pain Vitals unremarkable Exam remarkable for epigastric and left upper quadrant tenderness Rhythm strip independently interpreted by me: Sinus rhythm, rate 73, no ectopy. CT abdomen and pelvis IMPRESSION: 1. No hydronephrosis and no renal or ureteral calculi. 2. Hepatic steatosis. 3. Scattered colonic diverticula without adjacent inflammatory changes to suggest diverticulitis. 4. Mildly distended stomach. 5. Enlarged prostate. 6. Additional findings as detailed above. CBC unremarkable, CMP remarkable for creatinine 1.31, lipase normal, BNP normal, troponin negative x2, UA unremarkable Patient treated with the following in the ED: GI cocktail and Protonix IV On re-evaluation, symptoms have improved. Vitals are stable. Repeat abdominal exam is benign. Hospitalization was considered, however patient had an essentially unremarkable workup with regard to his symptoms, he had rapid improvement of symptoms with treatment in the ED, and I no longer feel hospitalization is necessary. Patient appears stable for discharge with close outpatient follow-up with his primary physician. Will prescribe additional medications for gastritis. Rx Carafate, [place]. Continue Dexilant as prescribed. Images Reviewed?: Images reviewed and evaluated by me Time of 1ST Reevaluation: 12:00 Reevaluation 1ST: Unchanged Patient Education/Counseling: Diagnosis, Treatment Family Education/Counseling: No Family Present Additional Information -Reviewed patient's previous visit(s): 02/13/24 for dizziness - The following tests were ordered, and results were reviewed by me: CT Abd/Pel, Troponin, BNP, UA, Lipase, CBC, CMP, EKG - Additional information was gathered from interviewing the following i ndependent Historian: None - I reviewed and agreed with the following test results read by other provider: CT Abd/Pel - I discussed treatments and results with medical personnel and: patient Comprehensive systems review obtained and negative except for what is stated in the HPI. Departure 1 Departure Time of Disposition: 14:41 Impression: Primary Impression: Abdominal pain Qualified Codes: R10.10 - Upper abdominal pain, unspecified Disposition: HOME / SELF CARE / HOMELESS Condition: Stable Additional Instructions: Your blood and urine tests, including screening test for heart attack, heart failure and pancreas inflammation, were essentially unremarkable. Your CT scan showed an unremarkable spleen, and was otherwise unremarkable with regard to your symptoms. I have included the report below. I have prescribed medication for your symptoms. Continue Dexilant as prescribed. Follow-up with your primary doctor in 1-2 days. Return to ER for persistent or worsening symptoms. [address] [address] Ph: [phone] DIAGNOSTIC IMAGING Diagnostic Imaging Report : [id number] Signed PATIENT: JUAN HALL ACCT: [id number] UNIT: [id number] : 1960 LOC: ER ROOM / BED: / AGE / SEX: 63 / M ADM STATUS: REG ER SERVICE [id number] ORDERING PHYSICIAN: JONAS GOLD MD PROCEDURE(s): ABPL - CT AB PEL WO CON-NO ORAL OR IV REASON: LUQ/L flank pain, n/v ORDER NUMBER(s): [id number], ACCESSION NUMBER(s): [id number] CLINICAL INFORMATION: Left upper quadrant pain. Left flank pain. TECHNIQUE: Axial CT images of the abdomen and pelvis were obtained without IV contrast. Coronal and sagittal reformatted images were obtained, reviewed, and stored. Evaluation of the parenchymal organs is limited without IV contrast. Evaluation of the bowel and mesentery is limited without oral contrast. All CT scans at this medical facility are performed using dose modulation techniques as appropriate to a performed exam including the following: Automated exposure control was utilized; adjustment of the MA and/or KV according to patient size; and use of iterative reconstruction technique. CTDIvol = 18.37 mGy DLP = 1076.74 mGy-cm COMPARISON: CT CT AB PEL WO CON-NO ORAL OR IV on DOS: 08/03/23, [facility] on DOS: 12/25/20 FINDINGS: Lung bases: Lung bases are clear. Liver: Hepatic steatosis. Biliary: Cholecystectomy. Spleen: Unremarkable. Pancreas: Grossly unremarkable in its noncontrast enhanced appearance. Adrenal glands: Unremarkable. No mass. Kidneys: Subcentimeter low-attenuation lesion in the midpole of the right ki dney, too small to characterize, appears grossly similar compared with the prior CT. No renal or ureteral calculi. No hydronephrosis. Aorta/Vascular: Scattered atherosclerotic calcification. No abdominal aortic aneurysm. Retroperitoneum: No mass or lymphadenopathy. Bowel/mesentery: No small bowel obstruction. No free air or free fluid. Appendix is visualized and appears unremarkable. Scattered colonic diverticula without adjacent inflammatory changes to suggest diverticulitis. The stomach is mildly distended with ingested material Pelvic organs: Prostate is enlarged, with impression on the bladder base. Bladder: Unremarkable. No mass. Abdominal wall: No mass or hernia. Bones: No acute fracture or suspicious intraosseous lesion. IMPRESSION: 1. No hydronephrosis and no renal or ureteral calculi. 2. Hepatic steatosis. 3. Scattered colonic diverticula without adjacent inflammatory changes to suggest diverticulitis. 4. Mildly distended stomach. 5. Enlarged prostate. 6. Additional findings as detailed above. e-Prescriptions Hydrocodone-Acetaminophen (Hydrocodone Bitartrate/AC 5-325 mg) 1 Tab Tab 1 TAB PO Q6HP PRN, #20 TAB prn breakthrough pain Prov: JONAS GOLD MD 08/13/24 Sucralfate (CARAFATE) 1 Gm Tab 1 GM OR Q12HP PRN, #30 TAB prn abdominal pain Prov: JONAS GOLD MD 08/13/24 Discharged With: Relative Critical Care Note Critical Care Time?: No Stability Stability form required: No Heart Score Heart Score: Heart Score Response (Comments) Value History N/A 0 EKG N/A 0 Age N/A 0 Risk Factors N/A 0 Troponin N/A 0 Total 0 I personally scribed for JONAS GOLD MD ([email or web address]) on 08/13/24 at 11:05. Electronically submitted by Mik English ([email or web address]). I personally scribed for JONAS GOLD MD ([email or web address]) on 08/13/24 at 11:10. Electronically submitted by Mik English ([email or web address]). I personally scribed for JONAS GOLD MD ([email or web address]) on 08/13/24 at 12:17. Electronically submitted by Mik English ([email or web address]). JONAS GOLD MD Aug 13, 2024 11:05
[2024-08-13 11:29] LABS: Urine Blood Negative /uL (Negative); Urine Clarity Clear (Clear); Urine Color Yellow (Yellow); Urine Mucus FEW (None Seen); Urine Protein, UAD Negative (Negative); Urine Specific Gravity 1.022 (1.001-1.035); Urine Squamous Epithelial Cell None Seen /hpf (<5); Urine Urobilinogen Normal (Negative); Urine WBC 5 /HPF (0-3); Urine pH 5.5 (5.0-9.0)
[2024-08-13 11:39] LABS: Basophils # (auto) 0 10 ^3/uL (0-0.2); Basophils % (auto) 0.3 % (0.0-2.0); Eosinophils # (auto) 0.2 10 ^3/uL (0-0.8); Hematocrit 48.8 % (41.0-53.0); Hemoglobin 16.5 g/dL (13.5-17.5); Lymphocytes # (auto) 1.1 10 ^3/uL (0.4-5.4); Lymphocytes % (auto) 22.8 % (10.0-50.0); Mean Corpuscular Hgb Conc. 33.9 g/dL (32.0-36.0); Mean Corpuscular Volume 88.5 fL (80.0-100.0); Monocytes # (auto) 0.4 10 ^3/uL (0-1.3); Monocytes % (auto) 7.8 % (0.0-12.0); Neutrophils # (auto) 3.2 10 ^3/uL (1.6-8.6); Neutrophils % (auto) 65.1 % (37.0-80.0); Nucleated Red Blood Cells % 0.1 %; Platelet Count (auto) 189 10^3/uL (140-450); Red Blood Cells 5.51 10^6/uL (4.5-5.90); Red Cell Distribution Width 15.1 % (11.8-14.3); White Blood Cell 4.9 10^3/uL (4.4-10.8)
[2024-08-13 11:56] LABS: Albumin 4.4 g/dL (3.2-4.8); Alkaline Phosphatase 106 U/L (46-116); Anion Gap 8 (5-15); Aspartate Aminotransferase 29 U/L (13-40); BUN/Creatinine Ratio 9.9 (10.0-20.0); Blood Urea Nitrogen 13 mg/dL (9-23); Calcium 9.5 mg/dL (8.7-10.4); Carbon Dioxide 23 mmol/L (20-31); Chloride 106 mmol/L (98-107); Potassium 4.2 mmol/L (3.5-5.1); Sodium 137 mmol/L (136-145)
[2024-08-13 11:57] LABS: Bilirubin, Total 0.8 mg/dL (0.2-1.0)
[2024-08-13 11:59] LABS: Alanine Aminotransferase 50 U/L (7-40); Glucose 141 mg/dL (74-106)
--- NOTE | 2024-08-13 12:02 | DVH ---
CLINICAL INFORMATION: Left upper quadrant pain. Left flank pain. TECHNIQUE: Axial CT images of the abdomen and pelvis were obtained without IV contrast. Coronal and s agittal reformatted images were obtained, reviewed, and stored. Evaluation of the parenchymal organs is limited without IV contrast. Evaluation of the bowel and mesentery is limited without oral contras t. All CT scans at this medical facility are performed using dose modulation techniques as appropriat e to a performed exam including the following: Automated exposure control was utilized; adjustment of the MA and/or KV according to patient size; and use of iterative reconstruction technique. CTDIvol = 18.37 mGy DLP = 1076.74 mGy-cm COMPARISON: CT CT AB PEL WO CON-NO ORAL OR IV on DOS: 08/03/23, [facility] on DOS: 12/25/20 FINDINGS: Lung bases: Lung bases are clear. Liver: Hepatic steatosis. Biliary: Cholecystectomy. Spleen: Unremarkable. Pancreas: Grossly unremarkable in its noncontrast enhanced appearance. Adrenal glands: Unremarkable. No mass. Kidneys: Subcentimeter low-attenuation lesion in the midpole of the right kidney, too small to charac terize, appears grossly similar compared with the prior CT. No renal or ureteral calculi. No hydronep hrosis. Aorta/Vascular: Scattered atherosclerotic calcification. No abdominal aortic aneurysm. Retroperitoneum: No mass or lymphadenopathy. Bowel/mesentery: No small bowel obstruction. No free air or free fluid. Appendix is visualized and ap pears unremarkable. Scattered colonic diverticula without adjacent inflammatory changes to suggest d iverticulitis. The stomach is mildly distended with ingested material Pelvic organs: Prostate is enlarged, with impression on the bladder base. Bladder: Unremarkable. No mass. Abdominal wall: No mass or hernia. Bones: No acute fracture or suspicious intraosseous lesion. IMPRESSION: 1. No hydronephrosis and no renal or ureteral calculi. 2. Hepatic steatosis. 3. Scattered colonic diverticula without adjacent inflammatory changes to suggest diverticulitis. 4. Mildly distended stomach. 5. Enlarged prostate. 6. Additional findings as detailed above.
[2024-08-13 12:08] LABS: Lipase 51 U/L (12-53)
[2024-08-13] MEDS: MAALOX PLUS or MAALOX 30 ML PO ONE (12:14)
[2024-08-13] MEDS: LIDOCAINE VISCOUS 2% 15ML UD PO ONE (12:15)
[2024-08-13 12:20] VITALS: PULSE 71; RESP 18; O2SAT 97
[2024-08-13] MEDS: PANTOPRAZOLE 40 MG/10 ML VIAL INJ IV ONE (12:33)
[2024-08-13] MEDS ORDERED: SUCR1TAB31 OR (14:45)
[2024-08-13] MEDS ORDERED: HYDR-4902 PO (14:45)
[2024-08-13 15:32] VITALS: BP 112/73; PULSE 64; RESP 16; TEMP 98.1; O2SAT 95
== END 2024-08-13 15:34 | disposition home or self-care (01) ==
LOC: ER 10:42
DX: R10.13 Epigastric pain (principal); F41.9 Anxiety disorder, unspecified; J44.9 Chronic obstructive pulmonary disease, unspecified; I10 Essential (primary) hypertension; Z79.899 Other long term (current) drug therapy; Z79.52 Long term (current) use of systemic steroids; Z79.624 Long term (current) use of inhibitors of nucleotide synthesis; Z88.0 Allergy status to penicillin; Z88.2 Allergy status to sulfonamides; Z90.49 Acquired absence of other specified parts of digestive tract
CPT/HCPCS: 36415; 74176; 80053; 81001; 83690; 83880; 84484; 85025; 93005; 96374; 99285; J2470

== ENCOUNTER 2024-09-28 09:56 | Outpatient (CLI) | payer MEDICARE, MEDICAID ==
[~2024-09-28 09:56] MED LIST changes: +HYDR-4902 PO; +SUCR1TAB31 OR
== END 2024-09-28 17:00 | disposition home or self-care (01) ==
LOC: Rad HDHVI 09:56
PROVIDERS: ATTEND Internal Medicine Cardiovascular Disease
DX: I10 Essential (primary) hypertension (principal)
CPT/HCPCS: 93880

== ENCOUNTER 2024-10-18 15:50 | Inpatient (IN) | payer MEDICARE, MEDICAID ==
[~2024-10-18] VITALS: Ht 172.7 cm; Wt 106.7 kg
--- NOTE | 2024-10-18 16:03 | ED.PDOC ---
History of Present Illness HPI Comments 64-year-old male came to the ER stating that he has been having chest pain for the past two days. Along with this chest pain today he started to have dizziness with the room is spinning could not even stand up without feeling like he was going to fall down. Denies any fall. He continues to have dizziness al catalina with a chest pain radiating into the back. His academic tutor did state that he will need an echo with stress test. History of hypotension. Denies any other symptoms. Time Seen by MD: 15:52 Primary Care Provider: DAY Reviewed Notes: Nurses Notes, Medications, Allergies Allergies: Coded Allergies: Penicillins (Verified Adverse Reaction, Unknown, 09/15/23) SENSITIVITY PER PT, NOT ALLERGY Sulfa Antibiotics (Verified Adverse Reaction, Unknown, 09/15/23) SENSITIVITY PER PT, NOT ALLERGY Home Meds Active Scripts Hydrocodone-Acetaminophen (Hydrocodone Bitartrate/AC 5-325 mg) 1 Tab Tab, 1 TAB PO Q6HP PRN, #20 TAB prn breakthrough pain Prov:JONAS GOLD MD 08/13/24 Sucralfate (CARAFATE) 1 Gm Tab, 1 GM OR Q12HP PRN, #30 TAB prn abdominal pain Prov:JONAS GOLD MD 08/13/24 Carisoprodol (Soma) 250 Mg Tab, 250 MG PO Q12HP PRN for 3 Days, #6 TAB Prov:LEONILA HOWARD NP 02/15/24 Levofloxacin Hemihydrate (LEVAQUIN 500 MG) 500 Mg Tab, 500 MG PO DAILY for 5 Days, #5 TAB Prov:JAYDEN FERGUSON MD 01/04/24 Prednisone (Prednisone) 20 Mg Tab, 20 MG PO QAM for 5 Days, #10 MG Prov:JAYDEN FERGUSON MD 01/04/24 Reported Medications Pilocarpine Hcl (Salagen) 5 Mg Tab, 5 MG PO BID, TAB 01/01/24 Acyclovir (Acyclovir) 400 Mg Tab, 400 MG PO DAILY, TAB 01/01/24 Hydroxychloroquine Sulfate (Hydroxychloroquine Sulfat) 200 Mg Tab, 200 MG PO DAILY, MG 01/01/24 Amitriptyline Hcl (Amitriptyline Hcl) 10 Mg Tab, 10 MG PO HS, MG 01/01/24 Dgcadoewfdi-Fyknauzactbd-Xufbz (Trelegy Ellipta 100-62.5-25 Mcg/INH) 1 Aer Aer, 1 AER IN DAILY, AER 01/01/24 Atenolol (Atenolol) 50 Mg Tab, 50 MG PO DAILY, TAB 01/01/24 Olmesartan Medoxomil (Benicar) 20 Mg Tab, 1 TAB PO DAILY for HTN, #30 TAB 5 Refills 02/16/23 Hydrocodone-Acetaminophen (Hydrocodone Bitartrate/AC 10-325 mg) 1 Tab Tab, 1 TAB PO TID PRN for PAIN SCALE 7 THRU 10, TAB 02/16/23 Tamsulosin Hcl (Flomax) 0.4 Mg Cap, 1 CAP PO DAILY 02/16/23 Albuterol Sulfate (Proair Digihaler) 108 Mcg/Act Aer, 108 MCG IN BIDP PRN for FOR COUGH, AER 02/16/23 Levothyroxine Sodium (Levothyroxine Sodium) 125 Mcg Tab, 1 TAB PO DAILY 12/19/22 Dexlansoprazole (Dexilant) 60 Mg Cap, 60 MG PO DAILY for GERD, CAP 10/16/17 Alprazolam (Xanax) 1 Mg Tab, 1 TAB PO TID, #60 TAB 10/16/17 Information Source: Patient Mode of Arrival: Ambulatory Severity: Moderate Timing: Days Duration: Since onset Past Medical History PAST MEDICAL HISTORY: Anxiety, Asthma, COPD, HTN, Liver, Thyroid, UTI'S Surgical History: Cholecystectomy Family History Family History: Family hx of DM, Family hx of Cancer, Family hx of heart brian Social History Smoker: Non-Smoker Alcohol: Denies ETOH Use Drugs: Denies Drug Use Lives In: Home Constitutional: denies: chills, diaphoresis, fatigue, fever, malaise, sweats, weakness, others EENTM: denies: blurred vision, double vision, ear bleeding, ear discharge, ear drainage, ear pain, ear ringing, eye pain, eye redness, hearing loss, mouth pain, mouth swelling, nasal discharge, nose bleeding, nose congestion, nose pain, photophobia, tearing, throat pain, throat swelling, voice changes, others Respiratory: denies: cough, hemoptysis, orthopnea, SOB at rest, shortness of breath, SOB with excertion, stridor, wheezing, others Cardiovascular: reports: chest pain; denies: dizzy spells, diaphoresis, Dyspnea on exertion, edema, irregular heart beat, left arm pain, lightheadedness, palpitations, PND, syncope, others Gastrointestinal: denies: abdomen distended, abdominal pain, blood streaked bowels, constipated, diarrhea, dysphagia, difficulty swallowing, hematemesis, melena, nausea, poor appetite, poor fluid intake, rectal bleeding, rectal pain, vomiting, others Genitourinary: denies: burning, dysuria, flank pain, frequency, hematuria, incontinence, penile discharge, penile sore, pain, testicle pain, testicle swelling, urgency, others Neurological: denies: dizziness, fainting, headache, left sided numbness, left sided weakness, numbness, paresthesia, pre-existing deficit, right sided numbness, right sided weakness, seizure, speech problems, tingling, tremors, weakness, others Musculoskeletal: denies: back pain, gout, joint pain, joint swelling, muscle pain, muscle stiffness, neck pain, others Integumetry: denies: bruises, change in color, change in hair/nails, dryness, laceration, lesions, lumps, rash, wounds, others Allergic/Immunocompromised: denies: Difficulty Healing, Frequent Infections, Hives, Itching, others Hematologic/Lymphatic: denies: anemia, blood clots, easy bleeding, easy bruising, swollen glands, others Endocrine: denies: excessive hunger, excessive sweating, excessive thirst, excessive urination, flushing, intolerance to cold, intolerance to heat, unexplained weight gain, unexplained weight loss, others Psychiatric: denies: anxiety, bipolar disorder, depression, hopeless, panic disorder, schizophrenia, sleepless, suicidal, others Physical Exam General Appearance: Moderate Distress HEENT: Normal ENT Inspection, Pharynx Normal, TMs Normal Neck: Full Range of Motion, Non-Tender, Normal, Normal Inspection Respiratory: Chest Non-Tender, Lungs Clear, No Accessory Muscle Use, No Respiratory Distress, Normal Breath Sounds Cardiovascular: No Edema, No JVD, No Murmur, No Gallop, Normal Peripheral Pulses, Tachycardia Breast Exam: Deferred Gastrointestinal: No Organomegaly, Non Tender, No Pulsatile Mass, Normal Bowel Sounds, Soft Genitalia: Deferred Pelvic: Deferred Rectal: Deferred Extremities: No calf tenderness, Normal capillary refill, Normal inspection, Normal range of motion, Non-tender, No pedal edema Musculoskeletal : Apperance: Normal Neurologic: Alert, general cleaner II-XII nml as Tested, No Motor Deficits, Normal Affect, Normal Mood, No Sensory Deficits Cerebellar Function: Normal Reflexes: Normal Skin: Dry, Normal Color, Warm Peripheral Pulses: 3+ Radial (R), 3+ Radial (L) Lymphatic: No Adenopathy Was a procedure done? Was a procedure done?: No EKG EKG : Pulse Rate (adult): 104 Cardiac Rhythm: NSR Differential Dx Considerations may include: Atypical chest pain Electrolyte imbalance X-Ray, Labs, Meds, VS Lab Test 10/18/24 15:56 Range/Units White Blood Count 6.6 4.4-10.8 10^3/uL Red Blood Count 5.83 4.5-5.90 10^6/uL Hemoglobin 16.4 13.5-17.5 g/dL Hematocrit 49.5 41.0-53.0 % Mean Corpuscular Volume 84.8 80.0-100.0 fL Mean Corpuscular Hemoglobin 28.2 28.0-32.0 pg Mean Corpuscular Hemoglobin Concent 33.2 32.0-36.0 g/dL Red Cell Distribution Width 14.3 11.8-14.3 % Platelet Count 252 140-450 10^3/uL Mean Platelet Volume 6.8 L 6.9-10.8 fL Neutrophils (%) (Auto) 48.1 37.0-80.0 % Lymphocytes (%) (Auto) 30.2 10.0-50.0 % Monocytes (%) (Auto) 17.4 H 0.0-12.0 % Eosinophils (%) (Auto) 3.4 0.0-7.0 % Basophils (%) (Auto) 0.9 0.0-2.0 % Neutrophils # (Auto) 3.2 1.6-8.6 10 ^3/uL Lymphocytes # (Auto) 2.0 0.4-5.4 10 ^3/uL Monocytes # (Auto) 1.1 0-1.3 10 ^3/uL Eosinophils # (Auto) 0.2 0-0.8 10 ^3/uL Basophils # (Auto) 0.1 0-0.2 10 ^3/uL Nucleated Red Blood Cells 0.1 % Sodium Level Pending Potassium Level Pending Chloride Level Pending Carbon Dioxide Level Pending Anion Gap Pending Blood Urea Nitrogen Pending Creatinine Pending Glomerular Filtration Rate Calc Pending BUN/Creatinine Ratio Pending Serum Glucose Pending Calcium Level Pending Troponin I High Sensitivity Pending Patient alert. Complaining of chest pain. Vitals stable. Answering questions. Along with this chest pain he was having dizziness. Possible autonomic disorder. Has risk factors for coronary artery disease. Possibly will need echocardiogram. EKG reviewed does not show any acute changes. Reviewed his previous visit. Explained to the patient. Continue monitoring. Time of 1ST Reevaluation: 16:02 Reevaluation 1ST: Unchanged Patient Education/Counseling: Diagnosis, Treatment, Prognosis, Need For Follow Up Family Education/Counseling: No Family Present SEPSIS Sepsis Screen Physician Orders Troponin-I Hs (10/18/24 15:54) Urinalysis (10/18/24 15:54) Basic Metabolic Panel (10/18/24 15:54) Troponin-I Hs (10/18/24 16:54) Troponin-I Hs (10/18/24 18:54) Electrocardigram (10/18/24 16:02) Electrocardigram (10/18/24 17:02) Electrocardigram (10/18/24 19:02) Aspirin Tablet (10/18/24 16:15) Meclizine Tablet (Antivert Tablet) (10/18/24 16:15) Laboratory Tests Test 10/18/24 15:56 White Blood Count 6.6 10^3/uL (4.4-10.8) Departure 1 Departure Time of Disposition: 16:04 Impression: Primary Impression: Chest pain of unknown etiology Additional Impression: Autonomic disorder Disposition: 09 ADMITTED INPATIENT Admit to: Med Surg Condition: Guarded Critical Care Note Critical Care Time?: No Stability Stability form required: No Heart Score Heart Score: Heart Score Response (Comments) Value History Slightly Suspicious 0 EKG Normal 0 Age >65 2 Risk Factors >3 or Hx ASHD 2 Troponin Normal limit 0 Total 4 PAZ TAYLOR MD Oct 18, 2024 16:03
[2024-10-18 16:05] LABS: Basophils # (auto) 0.1 10 ^3/uL (0-0.2); Basophils % (auto) 0.9 % (0.0-2.0); Eosinophils # (auto) 0.2 10 ^3/uL (0-0.8); Eosinophils % (auto) 3.4 % (0.0-7.0); Hematocrit 49.5 % (41.0-53.0); Hemoglobin 16.4 g/dL (13.5-17.5); Lymphocytes % (auto) 30.2 % (10.0-50.0); Mean Corpuscular Hemoglobin 28.2 pg (28.0-32.0); Mean Corpuscular Hgb Conc. 33.2 g/dL (32.0-36.0); Mean Corpuscular Volume 84.8 fL (80.0-100.0); Monocytes # (auto) 1.1 10 ^3/uL (0-1.3); Monocytes % (auto) 17.4 % (0.0-12.0); Neutrophils # (auto) 3.2 10 ^3/uL (1.6-8.6); Neutrophils % (auto) 48.1 % (37.0-80.0); Nucleated Red Blood Cells % 0.1 %; Platelet Count (auto) 252 10^3/uL (140-450); Red Blood Cells 5.83 10^6/uL (4.5-5.90); Red Cell Distribution Width 14.3 % (11.8-14.3); White Blood Cell 6.6 10^3/uL (4.4-10.8)
[2024-10-18 16:13] LABS: Chloride 105 mmol/L (98-107); Potassium 3.8 mmol/L (3.5-5.1); Sodium 138 mmol/L (136-145)
[2024-10-18] MEDS: MECLIZINE HCL 25 MG TAB PO ONE (16:13)
[2024-10-18] MEDS: ASPirin 325 MG TAB PO ONE (16:13)
[2024-10-18 16:14] LABS: Anion Gap 8 (5-15); Calcium 8.9 mg/dL (8.7-10.4); Carbon Dioxide 25 mmol/L (20-31)
[2024-10-18 16:19] LABS: BUN/Creatinine Ratio 8.8 (10.0-20.0); Blood Urea Nitrogen 11 mg/dL (9-23)
[2024-10-18 16:20] LABS: Glucose 134 mg/dL (74-106)
--- NOTE | 2024-10-18 17:18 | ECG ---
[facility] Test Date: 2024-10-18 Test Time: 17:16:01 Pat Name: JUAN HALL Department: ED Room: [address] [place] [address] Gender: M Poker Machine Attendant: BRADLEY : 1960 Requested By: PAZ TAYLOR Order Number: [id number] Reading MD: Jeramy Newman Measurements Intervals [place] Rate: 105 P: 52 [place]: 151 QRS: -75 QRSD: 132 T: -3 QT: 332 QTc: 439 Interpretive Statements Sinus tachycardia Right bundle branch block Inferior infarct, age indeterminate Lateral leads are also involved Electronically Signed On 10-18-2024 22:59:28 PDT by Jeramy Newman Please click the below link to view image of tracing.
[2024-10-18 18:22] LABS: Urine Bacteria None Seen /hpf (None Seen)
[2024-10-18 18:36] LABS: Urine Blood Negative /uL (Negative); Urine Clarity Clear (Clear); Urine Color Light-Yellow (Yellow); Urine Protein, UAD Negative (Negative); Urine Specific Gravity 1.009 (1.001-1.035); Urine Squamous Epithelial Cell None Seen /hpf (<5); Urine Urobilinogen Normal (Negative)
[2024-10-18] MEDS ORDERED: MORPHINE SULFATE INJ 2 MG/ml SYRG IV PRN (19:30)
[2024-10-18] MEDS ORDERED: ONDANSETRON HCL 4 MG/2 ML VIAL IV PRN (19:30)
[2024-10-18] MEDS ORDERED: ALBUTEROL SULF 2.5 MG/0.5ML(0.5%) NEB SOLN NEB PRN (19:30)
[2024-10-18] MEDS ORDERED: ACETAMINOPHEN 325 MG TAB PO PRN (19:30)
[2024-10-18] MEDS ORDERED: NITROGLYCERIN 0.4 MG SL TAB SL PRN (19:30)
[2024-10-18 19:51] VITALS: BP 136/83; PULSE 92; RESP 18; TEMP 99.1; O2SAT 95
--- NOTE | 2024-10-18 21:52 | DVHHP2 ---
History of Present Illness Reason for Visit: Chest pain History of Present Illness 64-year-old male presents for evaluation of chest pain. Patient reports that initially he has been having palpitations intermittently for the past two weeks. He states developing chest pain over the past two days with associated dizziness. No cough or fever no other acute complaints reported. Past Medical History COPD, hypertension, liver disease, thyroid, asthma Past Surgical History Cholecystectomy Family History Diabetes mellitus, heart disease and cancer Smoke: No ALCOHOL: none Drugs: None Review of Systems Review of Systems Review of systems are currently negative otherwise addressed in HPI. Allergies: Coded Allergies: Penicillins (Verified Adverse Reaction, Unknown, 09/15/23) SENSITIVITY PER PT, NOT ALLERGY Sulfa Antibiotics (Verified Adverse Reaction, Unknown, 09/15/23) SENSITIVITY PER PT, NOT ALLERGY Medications Current Medications Medications Dose Ordered Sig/Lee Route Start Time Stop Time Status Last Admin Dose Admin Aspirin 81 mg DAILY PO 10/19/24 10:00 Albuterol 2.5 mg Q6HPRN PRN NEB 10/18/24 19:30 Atenolol 50 mg DAILY PO 10/19/24 10:00 Hydroxychloroquine Sulfate 200 mg DAILY PO 10/19/24 10:00 Levothyroxine Sodium 125 mcg QAM@0600 PO 10/19/24 06:00 Patient Own Medication 20 mg DAILY PO 10/19/24 10:00 UNV Tamsulosin HCl 0.4 mg QPM PO 10/19/24 18:00 UNV Ondansetron HCl 4 mg Q4HP PRN IV 10/18/24 19:30 Enoxaparin Sodium 40 mg DAILY SC 10/19/24 10:00 Acetaminophen 650 mg Q6HP PRN PO 10/18/24 19:30 Nitroglycerin 0.4 mg Q5MINP PRN SL 10/18/24 19:30 Morphine Sulfate 2 mg Q30M PRN IV 10/18/24 19:30 Exam Vital Signs Vital Signs Date Time Temp Pulse Resp B/P (MAP) Pulse Ox O2 Delivery O2 Flow Rate FiO2 10/18/24 19:51 99.1 92 18 136/83 95 99.1 Exam Gen: 64-year-old male in no apparent distress. Skin: Warm, dry, normal color and texture, no rash. HEENT: Normocephalic atraumatic, mucous membranes moist and pink. Neck: Cervical and supraclavicular nodes normal without enlargement, trachea is midline, thyroid gland is normal without masses. Pulmonary: Clear to auscultation and percussion bilaterally. Cardiac: Regular rate and rhythm. No murmur Abdomen: Soft, nontender, nondistended, bowel sounds present all 4 quadrants, no guarding, no rigidity, no organomegaly. Extremities: No cyanosis, clubbing, no edema Neuro: Cranial nerves II through XII grossly intact, normal affect and speech, no focal motor deficits. Labs/Xrays Labs Test 10/18/24 18:07 10/18/24 16:42 10/18/24 15:56 Range/Units Urine Color Light-yellow Yellow Urine Clarity Clear Clear Urine pH 5.0 5.0-9.0 Urine Specific [place] 1.009 1.001-1.035 Urine Protein Negative Negative Urine Ketones Negative Negative Urine Blood Negative Negative /uL Urine Nitrite Negative Negative Urine Bilirubin Negative Negative Urine Urobilinogen Normal Negative mg/dL Urine Leukocyte Esterase Negative Negative /uL Urine RBC None seen 0 - 3 /hpf Urine Microscopic WBC 0-3 /HPF Urine Squamous Epithelial Cells None seen <5 /hpf Urine Bacteria None seen None Seen /hpf Urine Glucose Normal Normal mg/dL Troponin I High Sensitivity 4 </=54 ng/L White Blood Count 6.6 4.4-10.8 10^3/uL Red Blood Count 5.83 4.5-5.90 10^6/uL Hemoglobin 16.4 13.5-17.5 g/dL Hematocrit 49.5 41.0-53.0 % Mean Corpuscular Volume 84.8 80.0-100.0 fL Mean Corpuscular Hemoglobin 28.2 28.0-32.0 pg Mean Corpuscular Hemoglobin Concent 33.2 32.0-36.0 g/dL Red Cell Distribution Width 14.3 11.8-14.3 % Platelet Count 252 140-450 10^3/uL Mean Platelet Volume 6.8 L 6.9-10.8 fL Neutrophils (%) (Auto) 48.1 37.0-80.0 % Lymphocytes (%) (Auto) 30.2 10.0-50.0 % Monocytes (%) (Auto) 17.4 H 0.0-12.0 % Eosinophils (%) (Auto) 3.4 0.0-7.0 % Basophils (%) (Auto) 0.9 0.0-2.0 % Neutrophils # (Auto) 3.2 1.6-8.6 10 ^3/uL Lymphocytes # (Auto) 2.0 0.4-5.4 10 ^3/uL Monocytes # (Auto) 1.1 0-1.3 10 ^3/uL Eosinophils # (Auto) 0.2 0-0.8 10 ^3/uL Basophils # (Auto) 0.1 0-0.2 10 ^3/uL Nucleated Red Blood Cells 0.1 % Sodium Level 138 136-145 mmol/L Potassium Level 3.8 3.5-5.1 mmol/L Chloride Level 105 98-107 mmol/L Carbon Dioxide Level 25 20-31 mmol/L Anion Gap 8 5-15 Blood Urea Nitrogen 11 9-23 mg/dL Creatinine 1.25 0.700-1.30 mg/dL Glomerular Filtration Rate Calc 64 >90 mL/min BUN/Creatinine Ratio 8.8 L 10.0-20.0 Serum Glucose 134 H 74-106 mg/dL Calcium Level 8.9 8.7-10.4 mg/dL Assessment/Plan Assessment/Plan Assessment Chest pain rule out ACS Hypertension Plan Admit the patient to telemetry to the hospitalist Cardiology consultation Resume home medications Echocardiogram pending Continue treatment per orders. Plan discussed with: Patient My Orders Orders - JAYDEN MON Procedure Category Date Status Time Aspirin Tablet PHA 10/19/24 In Process 10:00 Albuterol Medneb PHA 10/18/24 In Process (Ventolin Medneb) 19:30 Atenolol Tablet PHA 10/19/24 In Process (Tenormin Tablet) 10:00 Hydroxychloroquine PHA 10/19/24 In Process Tablet (Plaquenil Tab 10:00 Levothyroxine Tablet PHA 10/19/24 In Process (Synthroid Tablet) 06:00 (Nf) Olmesartan PHA 10/19/24 Logged 10:00 Tamsulosin PHA 10/19/24 Logged Hydrochloride (Flomax) 18:00 * Cardiology Consult CONS 10/18/24 Transmitted 19:28 Basic Metabolic Panel LAB 10/19/24 Verified 04:00 Admit ADMIT 10/18/24 Transmitted 19:28 Ondansetron Hcl PHA 10/18/24 In Process (Zofran) 19:30 Enoxaparin Sodium PHA 10/19/24 In Process (Lovenox) 10:00 Cardiac DIET 10/19/24 Transmitted Diet-2gna,Lofat,Lochol Breakfast Echo 2d Mode Cardiac US 10/18/24 Logged DOP 19:28 Condition: Fair BROWN 10/18/24 In Process 19:28 Acetaminophen Tablet PHA 10/18/24 In Process (Tylenol Tablet) 19:30 Bedrest With Bathroom BROWN 10/18/24 In Process Privileg 19:28 Nitroglycerin PHA 10/18/24 In Process Sublingual (Ntrostat 19:30 Morphine Sulfate PHA 10/18/24 In Process Injection 19:30 Stat Ekg For Chest BROWN 10/18/24 In Process Pain 19:28 Notify Md Of Changes [facility] 10/18/24 In Process From Base 19:28 Bolt Sawyer For [facility] 10/18/24 In Process 24 Hours 19:28 Emergency Dysrhythmia [facility] 10/18/24 In Process Protocol 19:28 Rhythm Strips Once [facility] 10/18/24 In Process Every Shift 19:28 Oxygen By Nasal RT 10/18/24 Transmitted Cannula 19:28 Thyroid Stimulating LAB 10/18/24 Logged Hormone 21:33 Lipid Panel LAB 10/18/24 Logged 21:33 Chest Xray 1 View XY 10/18/24 Transmitted 21:35 Date of Service: Oct 18, 2024 Billing Provider: JAYDEN MON Common Visit Codes: [id number] INP/OBS CARE (HIGH) JAYDEN MON Oct 18, 2024 21:52
[2024-10-18 22:04] LABS: Cholesterol 139 mg/dL (< 200)
[2024-10-18 22:20] LABS: HDL Cholesterol 32 mg/dL (40-59); Triglycerides 489 mg/dL (< 150)
--- NOTE | 2024-10-18 22:56 | DVH ---
CHEST RADIOGRAPH Indication: chest pain Technique: Single frontal view of the chest was obtained Comparison: XY CHEST XRAY 1 VIEW on DOS: 01/03/24, XY CHEST XRAY 1 VIEW on DOS: 12/30/23, XY CHEST PORTAB LE on DOS: 09/15/23 FINDINGS: Lines and Tubes: None Lungs: No focal consolidation. Pleura: No effusion. No pneumothorax. Cardiomediastinal contours: Unremarkable Bones: No acute osseous abnormality. IMPRESSION: 1. No acute cardiopulmonary disease.
[2024-10-19] VITALS (10 sets, daily range): BP systolic 125–141; BP diastolic 72–91; PULSE 73–90; RESP 17–18; TEMP 97.6–98.4; O2SAT 96–98
[2024-10-19] MEDS: LEVOTHYROXINE SODIUM 50 MCG TAB PO SCH (05:07)
[2024-10-19 05:10] LABS: Chloride 106 mmol/L (98-107); Potassium 3.6 mmol/L (3.5-5.1); Sodium 140 mmol/L (136-145)
[2024-10-19 05:11] LABS: Anion Gap 9 (5-15); Calcium 8.8 mg/dL (8.7-10.4); Carbon Dioxide 25 mmol/L (20-31)
[2024-10-19 05:16] LABS: BUN/Creatinine Ratio 7.5 (10.0-20.0)
[2024-10-19 05:22] LABS: Blood Urea Nitrogen 8 mg/dL (9-23); Glucose 126 mg/dL (74-106)
[2024-10-19] MEDS: hydrOXYchloroQUINE SULFATE 200 MG TAB PO SCH (08:29)
[2024-10-19] MEDS: LOSARTAN POTASSIUM 50 MG TAB PO SCH (08:29)
[2024-10-19] MEDS: ASPirin 81 mg TAB PO SCH (08:29)
[2024-10-19] MEDS: ENOXAPARIN SOD 40 MG/0.4 ML SYRINGE SC SCH (08:30)
[2024-10-19] MEDS: ATENOLOL 25 MG TAB PO SCH (08:31)
--- NOTE | 2024-10-19 09:19 | DVHPN2 ---
Progress Note - Dictate Date Seen: Oct 18, 2024 Medical Necessity Reason Pt with a Central, PICC or Fol: No Subjective PT WITH CHEST PAIN NEGATIVE TROPONIN NL EF >55% S/P LHC * Left main without any flow restrictive lesion. * Left anterior descending artery without any flow restrictive lesion. * Circumflex without any flow restrictive lesion. * Right coronary artery without any flow restrictive lesion. * Left ventricular function was preserved and estimated EF 55-60% with LVEDP of 14 mmHg with no gradient across the aortic valve. Left ventricular systolic pressure was around 140. LABS WNL HX OF HEPATITIS S/P TREATMENT FOR HEP C HYPERTRIGLYCERIDEMIA HTN FATTY LIVER vital signs Vital Sign Date Time Temp Pulse Resp B/P (MAP) Pulse Ox O2 Delivery O2 Flow Rate FiO2 10/19/24 08:31 98 125/91 10/19/24 08:14 98.0 18 98 98.0 10/19/24 01:49 Room Air* 0 21 Total Intake and Output 10/18/24 10/18/24 10/19/24 15:00 23:00 07:00 Intake Total 150 ml Balance 150 ml medications Current Medications Medications Dose Ordered Sig/Lee Route Start Time Stop Time Status Last Admin Dose Admin Aspirin 81 mg DAILY PO 10/19/24 10:00 10/19/24 08:29 81 MG Albuterol 2.5 mg Q6HPRN PRN NEB 10/18/24 19:30 Atenolol 50 mg DAILY PO 10/19/24 10:00 10/19/24 08:31 50 MG Hydroxychloroquine Sulfate 200 mg DAILY PO 10/19/24 10:00 10/19/24 08:29 200 MG Levothyroxine Sodium 125 mcg QAM@0600 PO 10/19/24 06:00 10/19/24 05:07 125 MCG Losartan Potassium 100 mg DAILY PO 10/19/24 10:00 10/19/24 08:29 100 MG Tamsulosin HCl 0.4 mg QPM PO 10/19/24 18:00 Ondansetron HCl 4 mg Q4HP PRN IV 10/18/24 19:30 Enoxaparin Sodium 40 mg DAILY SC 10/19/24 10:00 10/19/24 08:30 40 MG Acetaminophen 650 mg Q6HP PRN PO 10/18/24 19:30 Nitroglycerin 0.4 mg Q5MINP PRN SL 10/18/24 19:30 Morphine Sulfate 2 mg Q30M PRN IV 10/18/24 19:30 laboratory and microbiology Laboratory Tests 10/19/24 04:24 10/18/24 15:56 Test 10/19/24 04:24 Range/Units Serum Glucose 126 H 74-106 mg/dL Problem List CHEST PAIN NEGATIVE TROPONIN NL EF >55% S/P LHC * Left main without any flow restrictive lesion. * Left anterior descending artery without any flow restrictive lesion. * Circumflex without any flow restrictive lesion. * Right coronary artery without any flow restrictive lesion. * Left ventricular function was preserved and estimated EF 55-60% with LVEDP of 14 mmHg with no gradient across the aortic valve. Left ventricular systolic pressure was around 140. LABS WNL HX OF HEPATITIS S/P TREATMENT FOR HEP C HYPERTRIGLYCERIDEMIA HTN FATTY LIVER Assessment/Plan CHECK LAB AMBULATE MAY DC HOME IN 24 HOURS Plan discussed with: Patient DAY LAGUNAS MD Oct 19, 2024 09:19
--- NOTE | 2024-10-19 13:57 | ECG ---
[facility] Test Date: 2024-10-18 Test Time: 16:06:38 Pat Name: JUAN HALL Department: ER Room: 0278T Gender: M Lubrication Worker: JHONATAN : 1960 Requested By: PAZ TAYLOR Order Number: [id number] Reading MD: Jeramy Newman Measurements Intervals [place] Rate: 104 P: 49 [place]: 152 QRS: -74 QRSD: 132 T: -3 QT: 336 QTc: 442 Interpretive Statements Sinus tachycardia Right bundle branch block Inferior infarct, old Lateral leads are also involved Electronically Signed On 10-22-2024 19:53:24 PDT by Jeramy Newman Please click the below link to view image of tracing.
--- NOTE | 2024-10-19 17:39 | DVHPN2 ---
Subjective Patient reporting dizziness with sudden movements. Patient also reporting bilateral lower extremity pedal edema Reviewed: Care Plan, H&P, Labs, Medications Changes from previous H/P or p: No Changes General: Per HPI Objective Vitals Vital Signs Date Time Temp Pulse Resp B/P (MAP) Pulse Ox O2 Delivery O2 Flow Rate FiO2 10/19/24 15:09 97 Room Air* 0 21 10/19/24 14:01 98.4 74 17 128/82 (97) 98.4 Intake/Output Intake and Output 10/19/24 07:00 Intake Total 150 ml Balance 150 ml Intake Oral 150 ml # Voids 2 General Appearance: Alert, Oriented X3, Cooperative, mild distress HEENT: Atraumatic, PERRLA Cardiovascular: Normal S1, Normal S2 Abdomen: Normal bowel sounds, Soft, No tenderness Musculoskeletal: Normal sensory function, Normal motor function Skin: Dry, Intact Psych/Mental Status: Mental status NL, Mood NL Medications Current Medications Medications Dose Ordered Sig/Lee Route Start Time Stop Time Status Last Admin Dose Admin Aspirin 81 mg DAILY PO 10/19/24 10:00 10/19/24 08:29 81 MG Albuterol 2.5 mg Q6HPRN PRN NEB 10/18/24 19:30 Atenolol 50 mg DAILY PO 10/19/24 10:00 10/19/24 08:31 50 MG Hydroxychloroquine Sulfate 200 mg DAILY PO 10/19/24 10:00 10/19/24 08:29 200 MG Levothyroxine Sodium 125 mcg QAM@0600 PO 10/19/24 06:00 10/19/24 05:07 125 MCG Losartan Potassium 100 mg DAILY PO 10/19/24 10:00 10/19/24 08:29 100 MG Tamsulosin HCl 0.4 mg QPM PO 10/19/24 18:00 Ondansetron HCl 4 mg Q4HP PRN IV 10/18/24 19:30 Enoxaparin Sodium 40 mg DAILY SC 10/19/24 10:00 10/19/24 08:30 40 MG Acetaminophen 650 mg Q6HP PRN PO 10/18/24 19:30 Nitroglycerin 0.4 mg Q5MINP PRN SL 10/18/24 19:30 Morphine Sulfate 2 mg Q30M PRN IV 10/18/24 19:30 Laboratory Results Laboratory Tests 10/18/24 15:56 10/19/24 04:24 Chemistry Test 10/19/24 04:24 Calcium Level 8.8 mg/dL (8.7-10.4) Urinalysis Test 10/18/24 18:07 Urine Color Light-yellow (Yellow) Urine Clarity Clear (Clear) Urine pH 5.0 (5.0-9.0) Urine Specific [place] 1.009 (1.001-1.035) Urine Protein Negative (Negative) Urine Ketones Negative (Negative) Urine Blood Negative /uL (Negative) Urine Nitrite Negative (Negative) Urine Bilirubin Negative (Negative) Urine Urobilinogen Normal mg/dL (Negative) Urine Leukocyte Esterase Negative /uL (Negative) Urine RBC None seen /hpf (0 - 3) Urine Microscopic WBC /HPF (0-3) Urine Squamous Epithelial Cells None seen /hpf (<5) Urine Bacteria None seen /hpf (None Seen) Urine Glucose Normal mg/dL (Normal) Labs and/or images reviewed: Labs reviewed by me, Image(s) reviewed by me Assessment/Plan Assessment/Plan Impression: -probable acute decompensated diastolic heart failure, HFpEF -dyslipidemia , hypertriglyceridemia -obesity -primary hypertension -asthma -hypothyroidism -COPD Plan: -echocardiogram pending -cardiology consultation: Recommendations appreciated -start diuresis with Lasix -continue antihypertensives -CT of abdomen and pelvis event reported abdominal pain after having recent biopsy on prostate -start atorvastatin 40 mg q.h.s. -continue thyroid supplementation -bronchodilators p.r.n. Total time spent with patient discussing and formulating plan of care: 35 minutes. This medical document was created using an electronic medical record system with [employer] dictation system. Although this document has been carefully reviewed, there may still be some phonetic and typographical errors. These areas are purely typographical due to imperfections of the software programs, and do not reflect any compromise in the patient's medical care. Plan discussed with: Patient, Other (RN) My Orders Orders - LEONILA HOWARD [employer] Procedure Category Date Status Time B-Type Natriuretic LAB 10/19/24 Transmitted Peptide 17:31 Furosemide Tablet PHA 10/19/24 Transmitted (Lasix Tablet) 17:45 Furosemide Tablet PHA 10/20/24 Transmitted (Lasix Tablet) 10:00 Orthostatic Vital ORDERS 10/19/24 Transmitted Signs 17:31 Atorvastatin (Lipitor) PHA 10/19/24 Transmitted 22:00 Ct Ab Pel Wo Con-No CT 10/19/24 Transmitted Oral Or Iv 17:31 Date of Service: Oct 19, 2024 Billing Provider: LEONILA HOWARD NP Common Visit Codes: [id number] INP/OBS CARE(HIGH) LEONILA HOWARD NP Oct 19, 2024 17:39
[2024-10-19] MEDS ORDERED: IPRATROPIUM BROM 0.5 MG/2.5ML INH SOL NEB PRN (17:45)
[2024-10-19] MEDS ORDERED: ALBUTEROL SULF 2.5 MG/0.5ML(0.5%) NEB SOLN NEB PRN (17:45)
[2024-10-19] MEDS: TAMSULOSIN HYDROCHLORIDE 0.4 MG CAP PO SCH (18:09)
[2024-10-19] MEDS: FUROSEMIDE 20 MG TAB PO ONE (18:14)
[2024-10-19] MEDS: ATORVASTATIN 20 MG TAB PO SCH (21:47)
[2024-10-20] VITALS (10 sets, daily range): BP systolic 113–158; BP diastolic 74–96; PULSE 70–81; RESP 17–19; TEMP 97.1–98.6; O2SAT 95–100
--- NOTE | 2024-10-20 08:28 | DVHPN2 ---
Subjective Patient continues to have dizziness with sudden movement. Reporting drainage from right ear Reviewed: Care Plan, H&P, Labs, Medications Changes from previous H/P or p: No Changes General: Per HPI Objective Vitals Vital Signs Date Time Temp Pulse Resp B/P (MAP) Pulse Ox O2 Delivery O2 Flow Rate FiO2 10/20/24 05:00 97.1 73 17 113/74 (87) 97 97.1 10/19/24 19:10 Room Air 0.0 10/19/24 19:10 21 Intake/Output Intake and Output 10/20/24 07:00 Intake Total 1000 ml Balance 1000 ml Intake Oral 1000 ml # Voids 2 General Appearance: Alert, Oriented X3, Cooperative, mild distress HEENT: Atraumatic, PERRLA Cardiovascular: Normal S1, Normal S2 Abdomen: Normal bowel sounds, Soft, No tenderness Musculoskeletal: Normal sensory function, Normal motor function Skin: Dry, Intact Psych/Mental Status: Mental status NL, Mood NL Medications Current Medications Medications Dose Ordered Sig/Lee Route Start Time Stop Time Status Last Admin Dose Admin Aspirin 81 mg DAILY PO 10/19/24 10:00 10/19/24 08:29 81 MG Albuterol 2.5 mg Q6HPRN PRN NEB 10/18/24 19:30 Atenolol 50 mg DAILY PO 10/19/24 10:00 10/19/24 08:31 50 MG Hydroxychloroquine Sulfate 200 mg DAILY PO 10/19/24 10:00 10/19/24 08:29 200 MG Levothyroxine Sodium 125 mcg QAM@0600 PO 10/19/24 06:00 10/20/24 05:27 125 MCG Losartan Potassium 100 mg DAILY PO 10/19/24 10:00 10/19/24 08:29 100 MG Tamsulosin HCl 0.4 mg QPM PO 10/19/24 18:00 10/19/24 18:09 0.4 MG Ondansetron HCl 4 mg Q4HP PRN IV 10/18/24 19:30 Enoxaparin Sodium 40 mg DAILY SC 10/19/24 10:00 10/19/24 08:30 40 MG Acetaminophen 650 mg Q6HP PRN PO 10/18/24 19:30 Nitroglycerin 0.4 mg Q5MINP PRN SL 10/18/24 19:30 Morphine Sulfate 2 mg Q30M PRN IV 10/18/24 19:30 Furosemide 20 mg DAILY PO 10/20/24 10:00 Atorvastatin Calcium 40 mg HS PO 10/19/24 22:00 10/19/24 21:47 40 MG Albuterol 2.5 mg Q4HPRN PRN NEB 10/19/24 17:45 Ipratropium [place] 0.5 mg Q4HPRN PRN NEB 10/19/24 17:45 Levofloxacin/ Dextrose 100 ml @ 100 mls/hr DAILY IV 10/20/24 10:00 UNV Laboratory Results Laboratory Tests 10/18/24 15:56 10/19/24 04:24 Urinalysis Test 10/18/24 18:07 Urine Color Light-yellow (Yellow) Urine Clarity Clear (Clear) Urine pH 5.0 (5.0-9.0) Urine Specific [place] 1.009 (1.001-1.035) Urine Protein Negative (Negative) Urine Ketones Negative (Negative) Urine Blood Negative /uL (Negative) Urine Nitrite Negative (Negative) Urine Bilirubin Negative (Negative) Urine Urobilinogen Normal mg/dL (Negative) Urine Leukocyte Esterase Negative /uL (Negative) Urine RBC None seen /hpf (0 - 3) Urine Microscopic WBC /HPF (0-3) Urine Squamous Epithelial Cells None seen /hpf (<5) Urine Bacteria None seen /hpf (None Seen) Urine Glucose Normal mg/dL (Normal) Labs and/or images reviewed: Labs reviewed by me, Image(s) reviewed by me Assessment/Plan Assessment/Plan Impression: -probable acute decompensated diastolic heart failure, HFpEF -dyslipidemia , hypertriglyceridemia -obesity -primary hypertension -asthma -hypothyroidism -COPD -otitis media, questionable forming abscess behind right ear.,? cholesteatoma Plan: Events: Patient continues to have dizziness. Probable etiology with right ear infection. Noted drainage and redness behind right ear. -start antibiotic therapy with Levaquin -echocardiogram pending -cardiology consultation: Recommendations appreciated -continue diuresis -continue antihypertensives -CT of abdomen and pelvis event reported abdominal pain after having recent biopsy on prostate -start atorvastatin 40 mg q.h.s. -continue thyroid supplementation -bronchodilators p.r.n. Total time spent with patient discussing and formulating plan of care: 35 minutes. This medical document was created using an electronic medical record system with [employer] system. Although this document has been carefully reviewed, there may still be some phonetic and typographical errors. These areas are purely typographical due to imperfections of the software programs, and do not reflect any compromise in the patient's medical care. Plan discussed with: Patient, Other (RN) My Orders Orders - LEONILA HOWARD NP Procedure Category Date Status Time Furosemide Tablet PHA 10/20/24 In Process (Lasix Tablet) 10:00 Orthostatic Vital ORDERS 10/19/24 Transmitted Signs 17:31 Atorvastatin (Lipitor) PHA 10/19/24 In Process 22:00 Albuterol Medneb PHA 10/19/24 In Process (Ventolin Medneb) 17:45 Ipratropium Medneb PHA 10/19/24 In Process (Atrovent Medneb) 17:45 Ct Ab Pel Wo Con-No CT 10/20/24 Logged Oral Or Iv 06:[address] 10/20/24 Logged 08:16 Levofloxacin 500mg PHA 10/20/24 Logged (Levaquin 500mg/ 100m 10:00 Date of Service: Oct 20, 2024 Billing Provider: LEONILA HOWARD NP Common Visit Codes: [id number] INP/OBS CARE(HIGH) LEONILA HOWARD NP Oct 20, 2024 08:28
[2024-10-20] MEDS: levoFLOXacin 500MG 100 ML IV SCH (09:45)
[2024-10-20] MEDS: PANTOPRAZOLE 40 MG/10 ML VIAL INJ IV SCH (09:48)
[2024-10-20] MEDS: FUROSEMIDE 20 MG TAB PO SCH (09:50)
[2024-10-20] MEDS: FLORASTOR (S. BOULARDII) 250 MG CAP PO SCH (09:52)
--- NOTE | 2024-10-20 11:12 | DVH ---
EXAM: CT NECK WITHOUT CONTRAST INDICATION: abscess behind right ear. cholesteotoma Exam Date: 10/20/2024 08:37 AM COMPARISON: None TECHNIQUE: CT of the neck with intravenous contrast. RADIATION DOSE: CTDIvol: 24.5 mGy, DLP: 2320 mGy*cm FINDINGS: Mucous retention cyst or polyp in the left maxillary sinus. There is no evidence of cervical mass lesion, pathologically enlarged lymph nodes or fluid collection . The fat planes of the neck appear intact. The airway and larynx are unremarkable. The parotid, submandibular and thyroid glands are unremarkable. The vascular structures of the neck appear patent. The visualized lung apices are clear. The limited visualized portions of the brain are unremarkable. Degenerative changes of the spine. IMPRESSION: No evidence of cervical mass lesion, pathologically enlarged lymph nodes or fluid collection.
--- NOTE | 2024-10-20 11:16 | DVH ---
Indication: PELVIC PAIN S/P PROSTATE BX Technique: CT axial images of the abdomen and pelvis are obtained without contrast. Coronal and sagit aj reformats were obtained. Radiation Dose Information: CTDI volume is 25 mGy. Dose-length product is 2320 mGy*cm Comparison: CT CT AB PEL WO CON-NO ORAL OR IV on DOS: 08/13/24, CT CT AB PEL WO CON-NO ORAL OR IV on D OS: 08/03/23, ECIDC on DOS: 12/25/20 FINDINGS: There is limited interpretation of the abdomen and pelvis without administration of intravenous contr ast. The lung bases demonstrate no pleural effusion. Adrenal glands, spleen, pancreas unremarkable in shape. Hepatic steatosis. Cholecystectomy. Kidneys demonstrate no hydronephrosis or nephrolithiasis. Stomach partially distended. Small bowel loops are moderately distended. Moderate volume stool in the colon. Colonic diverticula. No secondary signs for appendicitis. Abdominal aortic atherosclerotic disease. Bladder partially distended. Prostate measures 5.6 cm kenny sversely. No free pelvic fluid. No pelvic hematoma. No inguinal lymphadenopathy. Right anterior abdominal wall small contusion and soft tissue emphysema. IMPRESSION: Prostatomegaly. No pelvic hematoma. Hepatic steatosis. Moderate volume stool in the colon. Colonic diverticular disease. Atherosclerotic, coronary artery calcification disease. Right anterior abdominal wall small contusion and soft tissue emphysema. Other findings as described.
--- NOTE | 2024-10-20 11:20 | DVHPN2 ---
Progress Note - Dictate Date Seen: Oct 19, 2024 Medical Necessity Reason Pt with a Central, PICC or Fol: No Subjective PT WITH CHEST PAIN NEGATIVE TROPONIN NL EF >55% S/P LHC * Left main without any flow restrictive lesion. * Left anterior descending artery without any flow restrictive lesion. * Circumflex without any flow restrictive lesion. * Right coronary artery without any flow restrictive lesion. * Left ventricular function was preserved and estimated EF 55-60% with LVEDP of 14 mmHg with no gradient across the aortic valve. Left ventricular systolic pressure was around 140. LABS WNL HX OF HEPATITIS S/P TREATMENT FOR HEP C HYPERTRIGLYCERIDEMIA HTN FATTY LIVER vital signs Vital Sign Date Time Temp Pulse Resp B/P (MAP) Pulse Ox O2 Delivery O2 Flow Rate FiO2 10/20/24 09:50 158/91 10/20/24 09:49 76 10/20/24 09:00 97.7 17 95 97.7 10/20/24 07:30 Room Air* 0 21 Total Intake and Output 10/19/24 10/19/24 10/20/24 15:00 23:00 07:00 Intake Total 1000 ml Balance 1000 ml medications Current Medications Medications Dose Ordered Sig/Lee Route Start Time Stop Time Status Last Admin Dose Admin Aspirin 81 mg DAILY PO 10/19/24 10:00 10/20/24 09:49 81 MG Albuterol 2.5 mg Q6HPRN PRN NEB 10/18/24 19:30 Atenolol 50 mg DAILY PO 10/19/24 10:00 10/20/24 09:49 50 MG Hydroxychloroquine Sulfate 200 mg DAILY PO 10/19/24 10:00 10/20/24 09:49 200 MG Levothyroxine Sodium 125 mcg QAM@0600 PO 10/19/24 06:00 10/20/24 05:27 125 MCG Losartan Potassium 100 mg DAILY PO 10/19/24 10:00 10/20/24 09:48 100 MG Tamsulosin HCl 0.4 mg QPM PO 10/19/24 18:00 10/19/24 18:09 0.4 MG Ondansetron HCl 4 mg Q4HP PRN IV 10/18/24 19:30 Enoxaparin Sodium 40 mg DAILY SC 10/19/24 10:00 10/20/24 09:50 40 MG Acetaminophen 650 mg Q6HP PRN PO 10/18/24 19:30 Nitroglycerin 0.4 mg Q5MINP PRN SL 10/18/24 19:30 Morphine Sulfate 2 mg Q30M PRN IV 10/18/24 19:30 Furosemide 20 mg DAILY PO 10/20/24 10:00 10/20/24 09:50 20 MG Atorvastatin Calcium 40 mg HS PO 10/19/24 22:00 10/19/24 21:47 40 MG Albuterol 2.5 mg Q4HPRN PRN NEB 10/19/24 17:45 Ipratropium [place] 0.5 mg Q4HPRN PRN NEB 10/19/24 17:45 Levofloxacin/ Dextrose 100 ml @ 100 mls/hr DAILY IV 10/20/24 10:00 10/20/24 09:45 100 MLS/HR Saccharomyces Boulardii 250 mg DAILY PO 10/20/24 10:00 10/20/24 09:52 250 MG Pantoprazole Sodium 40 mg DAILY IV 10/20/24 10:00 10/20/24 09:48 40 MG laboratory and microbiology Laboratory Tests 10/19/24 04:24 10/18/24 15:56 Test 10/19/24 04:24 Range/Units Serum Glucose 126 H 74-106 mg/dL Problem List CHEST PAIN NEGATIVE TROPONIN NL EF >55% S/P LHC * Left main without any flow restrictive lesion. * Left anterior descending artery without any flow restrictive lesion. * Circumflex without any flow restrictive lesion. * Right coronary artery without any flow restrictive lesion. * Left ventricular function was preserved and estimated EF 55-60% with LVEDP of 14 mmHg with no gradient across the aortic valve. Left ventricular systolic pressure was around 140. LABS WNL HX OF HEPATITIS S/P TREATMENT FOR HEP C HYPERTRIGLYCERIDEMIA HTN FATTY LIVER Assessment/Plan CHECK LAB AMBULATE MAY DC HOME IN [address] NECK NEGAT[address] OF ABD PELVIS PENDING BUT CT OF ABD AND PELVIS ON 08/19 NO ACUTE CHANGES PT IS A HYPOCHONDRIAC Plan discussed with: Patient DAY LAGUNAS MD Oct 20, 2024 11:20
[2024-10-20] MEDS ORDERED: LACTULOSE 20Gm/30ML SOLN PO ONE (11:45)
[2024-10-20] MEDS ORDERED: LACTULOSE 20Gm/30ML SOLN PO PRN (11:45)
[2024-10-21] VITALS (8 sets, daily range): BP systolic 110–140; BP diastolic 57–96; PULSE 70–81; RESP 18–19; TEMP 97.6–98.1; O2SAT 95–99
--- NOTE | 2024-10-21 11:42 | DVHPN2 ---
Reviewed: Care Plan, H&P, Labs, Medications, Previous Orders, Radiology Changes from previous H/P or p: No Changes General: Per HPI Objective Vitals Vital Signs Date Time Temp Pulse Resp B/P (MAP) Pulse Ox O2 Delivery O2 Flow Rate FiO2 10/21/24 10:35 110/66 10/21/24 10:33 70 10/21/24 08:50 19 95 Room Air* 0 21 10/21/24 05:00 98.0 98.0 Intake/Output Intake and Output 10/21/24 07:00 Intake Total 1825 ml Balance 1825 ml Intake Oral 1725 ml IV Total 100 ml # Voids 7 # Bowel Movements 1 General Appearance: Alert, Oriented X3, Cooperative, mild distress HEENT: Atraumatic, PERRLA Cardiovascular: Normal S1, Normal S2 Abdomen: Normal bowel sounds, Soft, No tenderness Musculoskeletal: Normal sensory function, Normal motor function Skin: Dry, Intact Psych/Mental Status: Mental status NL, Mood NL Medications Current Medications Medications Dose Ordered Sig/Lee Route Start Time Stop Time Status Last Admin Dose Admin Aspirin 81 mg DAILY PO 10/19/24 10:00 10/21/24 10:34 81 MG Albuterol 2.5 mg Q6HPRN PRN NEB 10/18/24 19:30 Atenolol 50 mg DAILY PO 10/19/24 10:00 10/21/24 10:33 50 MG Hydroxychloroquine Sulfate 200 mg DAILY PO 10/19/24 10:00 10/21/24 10:34 200 MG Levothyroxine Sodium 125 mcg QAM@0600 PO 10/19/24 06:00 10/21/24 06:05 125 MCG Losartan Potassium 100 mg DAILY PO 10/19/24 10:00 10/21/24 10:35 100 MG Tamsulosin HCl 0.4 mg QPM PO 10/19/24 18:00 10/20/24 17:15 0.4 MG Ondansetron HCl 4 mg Q4HP PRN IV 10/18/24 19:30 Enoxaparin Sodium 40 mg DAILY SC 10/19/24 10:00 10/21/24 10:33 40 MG Acetaminophen 650 mg Q6HP PRN PO 10/18/24 19:30 Nitroglycerin 0.4 mg Q5MINP PRN SL 10/18/24 19:30 Morphine Sulfate 2 mg Q30M PRN IV 10/18/24 19:30 Furosemide 20 mg DAILY PO 10/20/24 10:00 10/21/24 10:34 20 MG Atorvastatin Calcium 40 mg HS PO 10/19/24 22:00 10/20/24 21:03 40 MG Albuterol 2.5 mg Q4HPRN PRN NEB 10/19/24 17:45 Ipratropium [place] 0.5 mg Q4HPRN PRN NEB 10/19/24 17:45 Levofloxacin/ Dextrose 100 ml @ 100 mls/hr DAILY IV 10/20/24 10:00 10/21/24 10:32 100 MLS/HR Saccharomyces Boulardii 250 mg DAILY PO 10/20/24 10:00 10/21/24 10:35 250 MG Pantoprazole Sodium 40 mg DAILY IV 10/20/24 10:00 10/21/24 10:32 40 MG Lactulose 30 ml BIDPRN PRN PO 10/20/24 11:45 Laboratory Results Laboratory Tests 10/18/24 15:56 10/19/24 04:24 Urinalysis Test 10/18/24 18:07 Urine Color Light-yellow (Yellow) Urine Clarity Clear (Clear) Urine pH 5.0 (5.0-9.0) Urine Specific [place] 1.009 (1.001-1.035) Urine Protein Negative (Negative) Urine Ketones Negative (Negative) Urine Blood Negative /uL (Negative) Urine Nitrite Negative (Negative) Urine Bilirubin Negative (Negative) Urine Urobilinogen Normal mg/dL (Negative) Urine Leukocyte Esterase Negative /uL (Negative) Urine RBC None seen /hpf (0 - 3) Urine Microscopic WBC /HPF (0-3) Urine Squamous Epithelial Cells None seen /hpf (<5) Urine Bacteria None seen /hpf (None Seen) Urine Glucose Normal mg/dL (Normal) Labs and/or images reviewed: Labs reviewed by me, Image(s) reviewed by me Assessment/Plan Assessment/Plan -suspected acute decompensated diastolic heart failure, HFpEF -dyslipidemia , hypertriglyceridemia -obesity -primary hypertension -asthma -hypothyroidism -COPD -otitis media, questionable forming abscess behind right ear.,? cholesteatoma Plan: -echocardiogram -cardiology consultation: Recommendations appreciated -continue diuresis -continue antihypertensives -CT of abdomen and pelvis event reported abdominal pain after having recent biopsy on prostate -start atorvastatin 40 mg q.h.s. -continue thyroid supplementation -bronchodilators p.r.n. Total time spent with patient discussing and formulating plan of care: 35 minutes. Plan discussed with: Patient Date of Service: Oct 21, 2024 Billing Provider: YANICK TAFOYA DO Common Visit Codes: [id number] INP/OBS CARE(HIGH) YANICK TAFOYA DO Oct 21, 2024 11:42
--- NOTE | 2024-10-21 13:36 | DVHPN2 ---
Progress Note - Dictate Date Seen: Oct 21, 2024 Medical Necessity Reason Pt with a Central, PICC or Fol: No Subjective PT WITH CHEST PAIN NEGATIVE TROPONIN NL EF >55% S/P LHC * Left main without any flow restrictive lesion. * Left anterior descending artery without any flow restrictive lesion. * Circumflex without any flow restrictive lesion. * Right coronary artery without any flow restrictive lesion. * Left ventricular function was preserved and estimated EF 55-60% with LVEDP of 14 mmHg with no gradient across the aortic valve. Left ventricular systolic pressure was around 140. LABS WNL HX OF HEPATITIS S/P TREATMENT FOR HEP C HYPERTRIGLYCERIDEMIA HTN FATTY LIVER vital signs Vital Sign Date Time Temp Pulse Resp B/P (MAP) Pulse Ox O2 Delivery O2 Flow Rate FiO2 10/21/24 10:35 110/66 10/21/24 10:33 70 10/21/24 09:00 97.6 18 97 97.6 10/21/24 08:50 Room Air* 0 21 Total Intake and Output 10/20/24 10/20/24 10/21/24 15:00 23:00 07:00 Intake Total 100 ml 725 ml 1000 ml Balance 100 ml 725 ml 1000 ml medications Current Medications Medications Dose Ordered Sig/Lee Route Start Time Stop Time Status Last Admin Dose Admin Aspirin 81 mg DAILY PO 10/19/24 10:00 10/21/24 10:34 81 MG Albuterol 2.5 mg Q6HPRN PRN NEB 10/18/24 19:30 Atenolol 50 mg DAILY PO 10/19/24 10:00 10/21/24 10:33 50 MG Hydroxychloroquine Sulfate 200 mg DAILY PO 10/19/24 10:00 10/21/24 10:34 200 MG Levothyroxine Sodium 125 mcg QAM@0600 PO 10/19/24 06:00 10/21/24 06:05 125 MCG Losartan Potassium 100 mg DAILY PO 10/19/24 10:00 10/21/24 10:35 100 MG Tamsulosin HCl 0.4 mg QPM PO 10/19/24 18:00 10/20/24 17:15 0.4 MG Ondansetron HCl 4 mg Q4HP PRN IV 10/18/24 19:30 Enoxaparin Sodium 40 mg DAILY SC 10/19/24 10:00 10/21/24 10:33 40 MG Acetaminophen 650 mg Q6HP PRN PO 10/18/24 19:30 Nitroglycerin 0.4 mg Q5MINP PRN SL 10/18/24 19:30 Morphine Sulfate 2 mg Q30M PRN IV 10/18/24 19:30 Furosemide 20 mg DAILY PO 10/20/24 10:00 10/21/24 10:34 20 MG Atorvastatin Calcium 40 mg HS PO 10/19/24 22:00 10/20/24 21:03 40 MG Albuterol 2.5 mg Q4HPRN PRN NEB 10/19/24 17:45 Ipratropium [place] 0.5 mg Q4HPRN PRN NEB 10/19/24 17:45 Levofloxacin/ Dextrose 100 ml @ 100 mls/hr DAILY IV 10/20/24 10:00 10/21/24 10:32 100 MLS/HR Saccharomyces Boulardii 250 mg DAILY PO 10/20/24 10:00 10/21/24 10:35 250 MG Pantoprazole Sodium 40 mg DAILY IV 10/20/24 10:00 10/21/24 10:32 40 MG Lactulose 30 ml BIDPRN PRN PO 10/20/24 11:45 laboratory and microbiology Laboratory Tests 10/19/24 04:24 10/18/24 15:56 Test 10/19/24 04:24 Range/Units Serum Glucose 126 H 74-106 mg/dL Problem List CHEST PAIN NEGATIVE TROPONIN NL EF >55% S/P LHC * Left main without any flow restrictive lesion. * Left anterior descending artery without any flow restrictive lesion. * Circumflex without any flow restrictive lesion. * Right coronary artery without any flow restrictive lesion. * Left ventricular function was preserved and estimated EF 55-60% with LVEDP of 14 mmHg with no gradient across the aortic valve. Left ventricular systolic pressure was around 140. LABS WNL HX OF HEPATITIS S/P TREATMENT FOR HEP C HYPERTRIGLYCERIDEMIA HTN FATTY LIVER OTITIS MEDIA/ PERIAURICULAR INFECTION Assessment/Plan CHECK LAB AMBULATE MAY DC HOME IN [address] NECK NE[address] OF ABD PELVIS PENDING BUT CT OF ABD AND PELVIS ON 08/19 NO ACUTE CHANGES PT IS A HYPOCHONDRIAC OTITIS AND PERIAURICULAR INFECTION CAN BE TREATED WITH ORAL ANTIBIOTICS Plan discussed with: Patient DAY LAGUNAS MD Oct 21, 2024 13:36
--- NOTE | 2024-10-22 23:45 | DVHSR ---
APPROVED REPORT EXAM: Two-dimensional and M-mode echocardiogram with Doppler and color Doppler. Blood Pressure: 127/72 mmHg INDICATION Chest Pain RISK FACTORS Height: 5' 8", Weight: 225 DIMENSIONS LVDd4.6 (3.8-5.7cm)LA (2D)4.0 (1.9-4.0cm)Aortic Root3.8 (2.0-3.7cm) LVDs3.2 (2.5-4.0cm)LA (MM) (1.9-4.0cm)Aortic Cusp Exc1.9 (1.5-2.0cm) EF (%) 58.0 (55-70%)Rt. Atrium3.8 (1.9-4.0cm)Asc. Aorta cm IVSd1.2 (0.7-1.1cm)RV (D) (1.8-2.4cm) PWd1.3 (0.7-1.1cm) Mitral Valve MitralMitral Stenosis E wave0.70m/sMV Mean GR.mmHg A wave0.80m/sMV Peak GR.mmHg E/A ratio0.92D MVAcm2 Aortic Valve Aortic ValveAortic Stenosis V10.80m/Mare Mean GR.2mmHg V20.80m/Mare Peak GR.3mmHg LVOT Diameter2.2 (1.8-2.4cm)Doppler AVA3.80cm2 Pulmonic Valve V20.40m/s Tricuspid Valve TR Velocity2.40m/s [id number] Conclusion MILD LVH AND MILD LV DIASTOLIC DYSFUNCTION NORMAL LV EF AND IS 65% SLIGHTLY DILATED RV NORMAL RV FUNCTION NORMAL VALVES NO EFFUSION NORMAL RVSP OF 30 MM OF HG
--- NOTE | 2024-10-30 19:11 | DVHDS2 ---
Discharge Summary Date of Admission Oct 18, 2024 at 19:28 Date of Discharge: Oct 21, 2024 Labs/Diagnostic Data: Laboratory Results Test 10/19/24 04:24 10/18/24 18:07 10/18/24 16:42 10/18/24 15:56 Sodium Level 140 mmol/L (136-145) Potassium Level 3.6 mmol/L (3.5-5.1) Chloride Level 106 mmol/L (98-107) Carbon Dioxide Level 25 mmol/L (20-31) Anion Gap 9 (5-15) Blood Urea Nitrogen 8 mg/dL (9-23) Creatinine 1.07 mg/dL (0.700-1.30) Glomerular Filtration Rate Calc 77 mL/min (>90) BUN/Creatinine Ratio 7.5 (10.0-20.0) Serum Glucose 126 mg/dL (74-106) Calcium Level 8.8 mg/dL (8.7-10.4) B-Type Natriuretic Peptide 3.24 pg/mL (0-100) Urine Color Light-yellow (Yellow) Urine Clarity Clear (Clear) Urine pH 5.0 (5.0-9.0) Urine Specific [place] 1.009 (1.001-1.035) Urine Protein Negative (Negative) Urine Ketones Negative (Negative) Urine Blood Negative /uL (Negative) Urine Nitrite Negative (Negative) Urine Bilirubin Negative (Negative) Urine Urobilinogen Normal mg/dL (Negative) Urine Leukocyte Esterase Negative /uL (Negative) Urine RBC None seen /hpf (0 - 3) Urine Microscopic WBC /HPF (0-3) Urine Squamous Epithelial Cells None seen /hpf (<5) Urine Bacteria None seen /hpf (None Seen) Urine Glucose Normal mg/dL (Normal) Troponin I High Sensitivity 4 ng/L (</=54) Triglycerides Level 489 mg/dL (< 150) Cholesterol Level 139 mg/dL (< 200) LDL Cholesterol mg/dL (< 100) HDL Cholesterol 32 mg/dL (40-59) White Blood Count 6.6 10^3/uL (4.4-10.8) Red Blood Count 5.83 10^6/uL (4.5-5.90) Hemoglobin 16.4 g/dL (13.5-17.5) Hematocrit 49.5 % (41.0-53.0) Mean Corpuscular Volume 84.8 fL (80.0-100.0) Mean Corpuscular Hemoglobin 28.2 pg (28.0-32.0) Mean Corpuscular Hemoglobin Concent 33.2 g/dL (32.0-36.0) Red Cell Distribution Width 14.3 % (11.8-14.3) Platelet Count 252 10^3/uL (140-450) Mean Platelet Volume 6.8 fL (6.9-10.8) Neutrophils (%) (Auto) 48.1 % (37.0-80.0) Lymphocytes (%) (Auto) 30.2 % (10.0-50.0) Monocytes (%) (Auto) 17.4 % (0.0-12.0) Eosinophils (%) (Auto) 3.4 % (0.0-7.0) Basophils (%) (Auto) 0.9 % (0.0-2.0) Neutrophils # (Auto) 3.2 10 ^3/uL (1.6-8.6) Lymphocytes # (Auto) 2.0 10 ^3/uL (0.4-5.4) Monocytes # (Auto) 1.1 10 ^3/uL (0-1.3) Eosinophils # (Auto) 0.2 10 ^3/uL (0-0.8) Basophils # (Auto) 0.1 10 ^3/uL (0-0.2) Nucleated Red Blood Cells 0.1 % Thyroid Stimulating Hormone (TSH) 2.65 uIU/mL (0.55-4.78) Other Laboratory Tests 10/19/24 04:24 10/18/24 15:56 Brief Hx & Hospital Course: -suspected acute decompensated diastolic heart failure, HFpEF -dyslipidemia , hypertriglyceridemia -obesity -primary hypertension -asthma -hypothyroidism -COPD -otitis media, questionable forming abscess behind right ear.,? cholesteatoma discharged to home Condition at Discharge: Fair Final Diagnosis/Problems List see above Discharge Disposition: Home Discharge Instruct/Medications Diet: Cardiac 2g Na,low cholest Activity: No Restrictions, As Tolerated Scheduled Acyclovir (Acyclovir), 400 MG PO DAILY, (Reported) Alprazolam (Xanax), 1 TAB PO TID, (Reported) Amitriptyline Hcl (Amitriptyline Hcl), 10 MG PO HS, (Reported) Atenolol (Atenolol), 50 MG PO DAILY, (Reported) Dexlansoprazole (Dexilant), 60 MG PO DAILY, (Reported) Mcgyyitumbt-Kjfvvysrgudp-Jnvwl (Trelegy Ellipta 100-62.5-25 Mcg/INH), 1 AER IN DAILY, (Reported) Hydroxychloroquine Sulfate (Hydroxychloroquine Sulfat), 200 MG PO DAILY, (Reported) Levofloxacin Hemihydrate (Levaquin 500 Mg), 500 MG PO DAILY Levothyroxine Sodium (Levothyroxine Sodium), 1 TAB PO DAILY, (Reported) Olmesartan Medoxomil (Benicar), 1 TAB PO DAILY, (Reported) Pilocarpine Hcl (Salagen), 5 MG PO BID, (Reported) Prednisone (Prednisone), 20 MG PO QAM Tamsulosin Hcl (Flomax), 1 CAP PO DAILY, (Reported) Scheduled PRN Albuterol Sulfate (Proair Digihaler), 108 MCG IN BIDP PRN for FOR COUGH, (Reported) Carisoprodol (Soma), 250 MG PO Q12HP PRN Hydrocodone-Acetaminophen (Hydrocodone Bitartrate/AC 10-325 mg), 1 TAB PO TID PRN for PAIN SCALE 7 THRU 10, (Reported) Hydrocodone-Acetaminophen (Hydrocodone Bitartrate/AC 5-325 mg), 1 TAB PO Q6HP PRN Sucralfate (Carafate), 1 GM OR Q12HP PRN Discharge Statement: "Patient was advised to return to the ER or call 911 if any headaches, dizziness, shortness of breath, chest pain, abdominal pain, bleeding, fevers, or worsening of medical condition. Patient was counseled about treatment plan, medications, possible side effects, patientverbalized understanding. All questions were answered to the best of my ability. This discharge took greater then 30 minutes in planning, reviewing documentation, counseling the patient, and discussing with other team members." ASSESSMENT ASSESSMENT Assessment Date of Service: Oct 21, 2024 Billing Provider: YANICK TAFOYA DO Common Visit Codes: 80111-REN/OBS DISCH DAY >30min YANICK TAFOYA DO Oct 30, 2024 19:11
== END 2024-10-21 18:30 | disposition home or self-care (01) | DRG 291 ==
LOC: ER 15:57 → OVERFLOW 19:28 → TELE-WESTW 10-19 15:53
PROVIDERS: ADMIT Internal Medicine; ATTEND Internal Medicine
DX: I11.0 Hypertensive heart disease with heart failure (principal); I50.31 Acute diastolic (congestive) heart failure; F41.9 Anxiety disorder, unspecified; E03.9 Hypothyroidism, unspecified; E66.9 Obesity, unspecified; E78.1 Pure hyperglyceridemia; F45.21 Hypochondriasis; H66.90 Otitis media, unspecified, unspecified ear; H71.90 Unspecified cholesteatoma, unspecified ear; Z68.34 Body mass index [BMI] 34.0-34.9, adult; J44.89 Other specified chronic obstructive pulmonary disease; K76.0 Fatty (change of) liver, not elsewhere classified; Z83.3 Family history of diabetes mellitus; Z88.0 Allergy status to penicillin; Z88.2 Allergy status to sulfonamides; Z90.49 Acquired absence of other specified parts of digestive tract
CPT/HCPCS: 36415; 70490; 71045; 74176; 80048; 80061; 81001; 83880; 84443; 84484; 85025; 93005; 93306; G0378; J1956; J2470

== ENCOUNTER 2024-11-05 20:37 | Emergency (ER) | payer MEDICARE, MEDICAID ==
[~2024-11-05] VITALS: Ht 172.7 cm; Wt 100.4 kg
--- NOTE | 2024-11-05 23:25 | ED.PDOC ---
Musculoskeletal HPI Comments 64-year-old male presents to the ED chief complaint left arm pain. Patient reports recently had a testosterone shot states increasing swelling, pain and redness since. Denies numbness or weakness denies fever or chills notes no nausea or vomiting chest pain or shortness breath. Chief Complaint: Upper Extremity Time Seen by MD: 21:00 Primary Care Provider: DAY Reviewed Notes: Nurses Notes, Medications, Allergies Allergies: Coded Allergies: Penicillins (Verified Adverse Reaction, Unknown, 09/15/23) SENSITIVITY PER PT, NOT ALLERGY Sulfa Antibiotics (Verified Adverse Reaction, Unknown, 09/15/23) SENSITIVITY PER PT, NOT ALLERGY Home Meds Active Scripts Doxycycline Hyclate (Doxycycline Hyclate) 100 Mg Cap, 100 MG PO BID for 7 Days, #14 CAP Prov:ANGELLA DUENAS [employer] HELPER 11/06/24 Hydrocodone-Acetaminophen (Hydrocodone Bitartrate/AC 5-325 mg) 1 Tab Tab, 1 TAB PO Q6HP PRN, #20 TAB prn breakthrough pain Prov:JONAS GOLD MD 08/13/24 Sucralfate (CARAFATE) 1 Gm Tab, 1 GM OR Q12HP PRN, #30 TAB prn abdominal pain Prov:JONAS GOLD MD 08/13/24 Carisoprodol (Soma) 250 Mg Tab, 250 MG PO Q12HP PRN for 3 Days, #6 TAB Prov:LEONILA HOWARD NP 02/15/24 Levofloxacin Hemihydrate (LEVAQUIN 500 MG) 500 Mg Tab, 500 MG PO DAILY for 5 Days, #5 TAB Prov:JAYDEN FERGUSON MD 01/04/24 Prednisone (Prednisone) 20 Mg Tab, 20 MG PO QAM for 5 Days, #10 MG Prov:JAYDEN FERGUSON MD 01/04/24 Reported Medications Pilocarpine Hcl (Salagen) 5 Mg Tab, 5 MG PO BID, TAB 01/01/24 Acyclovir (Acyclovir) 400 Mg Tab, 400 MG PO DAILY, TAB 01/01/24 Hydroxychloroquine Sulfate (Hydroxychloroquine Sulfat) 200 Mg Tab, 200 MG PO DAILY, MG 01/01/24 Amitriptyline Hcl (Amitriptyline Hcl) 10 Mg Tab, 10 MG PO HS, MG 01/01/24 Grbgfyefzau-Syxgjiybfvtc-Yhjym (Trelegy Ellipta 100-62.5-25 Mcg/INH) 1 Aer Aer, 1 AER IN DAILY, AER 01/01/24 Atenolol (Atenolol) 50 Mg Tab, 50 MG PO DAILY, TAB 01/01/24 Olmesartan Medoxomil (Benicar) 20 Mg Tab, 1 TAB PO DAILY for HTN, #30 TAB 5 Refills 02/16/23 Hydrocodone-Acetaminophen (Hydrocodone Bitartrate/AC 10-325 mg) 1 Tab Tab, 1 TAB PO TID PRN for PAIN SCALE 7 THRU 10, TAB 02/16/23 Tamsulosin Hcl (Flomax) 0.4 Mg Cap, 1 CAP PO DAILY 02/16/23 Albuterol Sulfate (Proair Digihaler) 108 Mcg/Act Aer, 108 MCG IN BIDP PRN for FOR COUGH, AER 02/16/23 Levothyroxine Sodium (Levothyroxine Sodium) 125 Mcg Tab, 1 TAB PO DAILY 12/19/22 Dexlansoprazole (Dexilant) 60 Mg Cap, 60 MG PO DAILY for GERD, CAP 10/16/17 Alprazolam (Xanax) 1 Mg Tab, 1 TAB PO TID, #60 TAB 10/16/17 Mode of Arrival: Ambulatory Past Medical History PAST MEDICAL HISTORY: Anxiety, Asthma, COPD, HTN, Liver, Thyroid, UTI'S Surgical History: Cholecystectomy Family History Family History: Family hx of DM, Family hx of Cancer, Family hx of heart brian Social History Smoker: Non-Smoker Alcohol: Denies ETOH Use Drugs: Denies Drug Use Lives In: Home Constitutional: denies: chills, diaphoresis, fatigue, fever, malaise, sweats, weakness, others EENTM: denies: blurred vision, double vision, ear bleeding, ear discharge, ear drainage, ear pain, ear ringing, eye pain, eye redness, hearing loss, mouth pain, mouth swelling, nasal discharge, nose bleeding, nose congestion, nose pain, photophobia, tearing, throat pain, throat swelling, voice changes, others Respiratory: denies: cough, hemoptysis, orthopnea, SOB at rest, shortness of breath, SOB with excertion, stridor, wheezing, others Cardiovascular: denies: chest pain, dizzy spells, diaphoresis, Dyspnea on exertion, edema, irregular heart beat, left arm pain, lightheadedness, palpitations, PND, syncope, others Gastrointestinal: denies: abdomen distended, abdominal pain, blood streaked bowels, constipated, diarrhea, dysphagia, difficulty swallowing, hematemesis, melena, nausea, poor appetite, poor fluid intake, rectal bleeding, rectal pain, vomiting, others Genitourinary: denies: burning, dysuria, flank pain, frequency, hematuria, incontinence, penile discharge, penile sore, pain, testicle pain, testicle swelling, urgency, others Neurological: denies: dizziness, fainting, headache, left sided numbness, left sided weakness, numbness, paresthesia, pre-existing deficit, right sided numbness, right sided weakness, seizure, speech problems, tingling, tremors, weakness, others Musculoskeletal: denies: back pain, gout, joint pain, joint swelling, muscle pain, muscle stiffness, neck pain, others Integumetry: reports: others (REDNESS AND SWELLING LEFT BICEP); denies: bruises, change in color, change in hair/nails, dryness, laceration, lesions, lumps, rash, wounds Allergic/Immunocompromised: denies: Difficulty Healing, Frequent Infections, Hives, Itching, others Hematologic/Lymphatic: denies: anemia, blood clots, easy bleeding, easy bruis ing, swollen glands, others Endocrine: denies: excessive hunger, excessive sweating, excessive thirst, exc essive urination, flushing, intolerance to cold, intolerance to heat, unexplained weight gain, unexplained weight loss, others Psychiatric: denies: anxiety, bipolar disorder, depression, hopeless, panic disorder, schizophrenia, sleepless, suicidal, others Physical Exam General Appearance: No Apparent Distress, Normal HEENT: Pharynx Normal Neck: Full Range of Motion, Non-Tender Respiratory: Lungs Clear, No Respiratory Distress, Normal Breath Sounds Cardiovascular: No Murmur, Normal Peripheral Pulses, Regular Rate/Rhythm Breast Exam: Deferred Gastrointestinal: Non Tender, Soft Genitalia: Deferred Pelvic: Deferred Rectal: Deferred Extremities: Normal capillary refill, Normal inspection, Normal range of motion, Non-tender, No pedal edema Musculoskeletal : Apperance: Normal Neurologic: Alert, No Motor Deficits, Normal Affect, Normal Mood, No Sensory Deficits Cerebellar Function: Normal Reflexes: Normal Skin: Dry, Normal Color, Warm, Wounds (LEFT PROXIMAL BICEPS NOTED MODERATE EDEMA ERYTHEMA AND TENDERNESS NO NOTED STREAKING STRENGTH SENSORY MOTION INTACT POSITIVE RADIAL PULSE NO NOTED DRAINAGE OR OR PITTING) Lymphatic: No Adenopathy Was a procedure done? Was a procedure done?: No Differential Diagnosis EXT Differential Diagnosis: Cellulitis, Deep Vein Thrombosis, Compartment Syndrome X-Ray, Labs, Meds, VS Vital Signs Date Time Temp Pulse Resp B/P (MAP) Pulse Ox O2 Delivery O2 Flow Rate FiO2 11/06/24 01:12 78 18 95 Room Air* 0 21 11/06/24 01:12 98.2 78 18 144/89 (107) 95 98.2 11/05/24 20:46 98.3 86 18 143/90 (107) 95 98.3 Lab Test 11/05/24 23:55 Range/Units White Blood Count 8.6 4.4-10.8 10^3/uL Red Blood Count 5.94 H 4.5-5.90 10^6/uL Hemoglobin 16.8 13.5-17.5 g/dL Hematocrit 49.9 41.0-53.0 % Mean Corpuscular Volume 84.0 80.0-100.0 fL Mean Corpuscular Hemoglobin 28.2 28.0-32.0 pg Mean Corpuscular Hemoglobin Concent 33.6 32.0-36.0 g/dL Red Cell Distribution Width 14.2 11.8-14.3 % Platelet Count 247 140-450 10^3/uL Mean Platelet Volume 6.8 L 6.9-10.8 fL Neutrophils (%) (Auto) 61.9 37.0-80.0 % Lymphocytes (%) (Auto) 22.4 10.0-50.0 % Monocytes (%) (Auto) 12.6 H 0.0-12.0 % Eosinophils (%) (Auto) 2.3 0.0-7.0 % Basophils (%) (Auto) 0.8 0.0-2.0 % Neutrophils # (Auto) 5.3 1.6-8.6 10 ^3/uL Lymphocytes # (Auto) 1.9 0.4-5.4 10 ^3/uL Monocytes # (Auto) 1.1 0-1.3 10 ^3/uL Eosinophils # (Auto) 0.2 0-0.8 10 ^3/uL Basophils # (Auto) 0.1 0-0.2 10 ^3/uL Nucleated Red Blood Cells 0.0 % D-Dimer, Quantitative 0.30 0.0-0.49 mg/L FEU Sodium Level 140 136-145 mmol/L Potassium Level 4.3 3.5-5.1 mmol/L Chloride Level 107 98-107 mmol/L Carbon Dioxide Level 26 20-31 mmol/L Anion Gap 7 5-15 Blood Urea Nitrogen 13 9-23 mg/dL Creatinine 1.16 0.700-1.30 mg/dL Glomerular Filtration Rate Calc 69 >90 mL/min BUN/Creatinine Ratio 11.2 10.0-20.0 Serum Glucose 84 74-106 mg/dL Calcium Level 9.3 8.7-10.4 mg/dL Total Bilirubin 0.4 0.2-1.0 mg/dL Aspartate Amino Transferase (AST) 21 13-40 U/L Alanine Aminotransferase (ALT) 24 7-40 U/L Alkaline Phosphatase 97 46-116 U/L Total Protein 7.0 5.7-8.2 g/dL Albumin 4.5 3.2-4.8 g/dL Current Medications Medications (Trade) Dose Ordered Sig/Lee Route Start Time Stop Time Status Last Admin Ketorolac Tromethamine (Toradol Injection) 60 mg ONCE ONCE IM 11/05/24 23:00 11/05/24 23:01 DC 11/06/24 01:11 Doxycycline Monohydrate (Vibramycin Tablet) 100 mg ONCE ONCE PO 11/05/24 23:00 11/05/24 23:01 DC 11/06/24 01:11 X-Ray, Labs, Meds, VS Comment CONSIDERED POSSIBLE DVT ULTRASOUNDS NEGATIVE FOR ANY ACUTE CLOTS. CBC CMP WITHIN NORMAL LIMITS. D-DIMER 0.30 HOWEVER NEGATIVE ON ULTRASOUND. THIS IS LIKELY SECONDARY INFECTION TO THE INJECTION. SCRIPT TRIAL OF DOXYCYCLINE TWICE DAILY X7 DAYS PATIENT WITH ALLERGIES TO PENICILLINS AND SULFAS. PATIENT GIVEN ROCEPHIN 1 G IM. PATIENT WAS ADVISED TO TAKE MEDICATIONS PRESCRIBED SIDE EFFECTS DISCUSSED. PATIENT WAS ADVISED TO FOLLOW UP WITH HIS PCP CALL ON THURSDAY AND SCHEDULE A 2 DAY FOLLOW UP FOR WOUND RE-EVALUATION. PATIENT WAS ADVISED ON ER RETURN PRECAUTIONS HE INDICATED UNDERSTANDING AND AGREES WITH DISCHARGE PLAN OF CARE. Time of 1ST Reevaluation: 21:00 Reevaluation 1ST: Unchanged Time of 2ND Reevaluation: 00:43 Reevaluation 2ND: Improved Patient Education/Counseling: Diagnosis, Treatment, Prognosis, Need For Follow Up Family Education/Counseling: No Family Present Departure 1 Departure Time of Disposition: 00:43 Impression: Primary Impression: Cellulitis Qualified Codes: L03.114 - Cellulitis of left upper limb Disposition: 01 HOME / SELF CARE / HOMELESS Condition: Stable e-Prescriptions Doxycycline Hyclate (Doxycycline Hyclate) 100 Mg Cap 100 MG PO BID for 7 Days, #14 CAP Prov: ANGELLA DUENAS 11/06/24 Discharged With: Self Critical Care Note Critical Care Time?: No Stability Stability form required: ANGELLA Bauman Nov 05, 2024 23:25
[2024-11-06 00:05] LABS: Hematocrit 49.9 % (41.0-53.0); Hemoglobin 16.8 g/dL (13.5-17.5); Mean Corpuscular Hemoglobin 28.2 pg (28.0-32.0); Mean Corpuscular Volume 84.0 fL (80.0-100.0); Nucleated Red Blood Cells % 0.0 %
--- NOTE | 2024-11-06 00:05 | DVH ---
LEFT Upper Extremity Venous Duplex Clinical History: SWELLING PAOIN AND ERYTHEMA LEFT BICEP Comparison: None Technique: Duplex Doppler evaluation of the venous system of the LEFT lower neck and upper extremity including color Doppler and spectral/pulsed waveform analysis was performed. Findings: The internal jugular vein demonstrates appropriate compressibility and waveform variability. The subclavian vein is patent on color Doppler evaluation without intraluminal thrombus and demonstra karthikeyan waveform variability. The visualized portion of the brachiocephalic vein is patent on color Doppler evaluation without intr aluminal thrombus and demonstrates waveform variability. The axillary vein demonstrates appropriate compressibility and waveform variability. The brachial veins demonstrate appropriate compressibility and patency on Doppler evaluation. The basilic vein demonstrates appropriate compressibility and patency on Doppler evaluation. The cephalic vein demonstrates appropriate compressibility and patency on Doppler evaluation. Impression: No venous thrombus identified in LEFT upper extremity vessels evaluated above.
[2024-11-06 00:24] LABS: Alanine Aminotransferase 24 U/L (7-40); Albumin 4.5 g/dL (3.2-4.8); Alkaline Phosphatase 97 U/L (46-116); Anion Gap 7 (5-15); BUN/Creatinine Ratio 11.2 (10.0-20.0); Blood Urea Nitrogen 13 mg/dL (9-23); Calcium 9.3 mg/dL (8.7-10.4); Carbon Dioxide 26 mmol/L (20-31); Glucose 84 mg/dL (74-106); Potassium 4.3 mmol/L (3.5-5.1); Sodium 140 mmol/L (136-145); Total Protein 7.0 g/dL (5.7-8.2)
[2024-11-06 00:25] LABS: Bilirubin, Total 0.4 mg/dL (0.2-1.0)
[2024-11-06 00:28] LABS: Chloride 107 mmol/L (98-107)
[2024-11-06] MEDS ORDERED: DOXY100C4 PO (00:43)
[2024-11-06] MEDS: KETOROLAC TROMETH 60MG/2ML VIAL IM ONE (01:11)
[2024-11-06] MEDS: DOXYCYCLINE 100 MG TAB/CAP PO ONE (01:11)
[2024-11-06 01:12] VITALS: BP 144/89; PULSE 78; RESP 18; TEMP 98.2; O2SAT 95
== END 2024-11-06 01:23 | disposition home or self-care (01) ==
LOC: ER 20:37
DX: L03.114 Cellulitis of left upper limb (principal); F41.9 Anxiety disorder, unspecified; J45.909 Unspecified asthma, uncomplicated; J44.89 Other specified chronic obstructive pulmonary disease; I10 Essential (primary) hypertension; Z90.49 Acquired absence of other specified parts of digestive tract; Z88.0 Allergy status to penicillin; Z83.3 Family history of diabetes mellitus; Z79.890 Hormone replacement therapy; Z79.624 Long term (current) use of inhibitors of nucleotide synthesis; Z79.52 Long term (current) use of systemic steroids; Z79.899 Other long term (current) drug therapy; Z87.440 Personal history of urinary (tract) infections; Z88.2 Allergy status to sulfonamides
CPT/HCPCS: 36415; 80053; 85025; 85379; 93971; 96372; 99285; J1885

== ENCOUNTER 2024-11-21 13:35 | Outpatient (CLI) | payer MEDICARE, MEDICAID ==
[~2024-11-21] VITALS: Ht 172.7 cm; Wt 104.3 kg
[2024-11-21] MEDS ORDERED: ADENOSINE 90 MG/30 ML INJ IV ONE (15:04)
[2024-11-21] MEDS ORDERED: ADENOSINE 88 MG in GIVE UN-DILUTED 0 ML IV ONE (16:15)
== END 2024-11-21 17:00 | disposition home or self-care (01) ==
LOC: Rad HDHVI 13:35
PROVIDERS: ATTEND Internal Medicine Cardiovascular Disease
DX: I49.1 Atrial premature depolarization (principal); I45.10 Unspecified right bundle-branch block; R07.89 Other chest pain; I11.0 Hypertensive heart disease with heart failure; I50.33 Acute on chronic diastolic (congestive) heart failure; J44.9 Chronic obstructive pulmonary disease, unspecified; R42 Dizziness and giddiness; E78.00 Pure hypercholesterolemia, unspecified; Z86.19 Personal history of other infectious and parasitic diseases
CPT/HCPCS: 78452; 93017; A9500; J0153

== ENCOUNTER 2025-03-16 15:47 | Outpatient (CLI) | payer MEDICARE, MEDICAID | END 2025-03-16 17:00 | disposition home or self-care (01) | LOC: Rad HDHVI 15:47 | PROVIDERS: ATTEND Internal Medicine Cardiovascular Disease | DX: R06.02 Shortness of breath (principal); R07.89 Other chest pain | CPT/HCPCS: 93306 ==

== ENCOUNTER 2025-03-17 17:56 | Emergency (ER) | payer MEDICARE, MEDICAID ==
[~2025-03-17] VITALS: Ht 175.3 cm; Wt 98.4 kg
--- NOTE | 2025-03-17 18:32 | ED.PDOC ---
Musculoskeletal HPI Comments HPI: 64-year-old male who came to ER for lower extremity pain. 2 days ago patient underwent plasmapheresis, and shortly afterwards he has started experiencing left lower extremity, sharp cramping pain, on his left posterior thigh radiating to his knee. Denies any chest pains or shortness of breath. Denies any fever. Discharged here last October 30, diagnosed with -suspected acute decompensated diastolic heart failure, HFpEF -dyslipidemia , hypertriglyceridemia -obesity -primary hypertension -asthma -hypothyroidism -COPD -otitis media, questionable forming abscess behind right ear.,? cholesteatoma Patient was just seen by Dr. Weinstein yesterday. Echocardiogram done Past Medical History: Hypertension, congestive heart failure, hypothyroidism, COPD, asthma, anxiety Past Surgical History: Cholecystectomy, hemorrhoidectomy, anal fissure surgery Social History: Denies HPI: Poor Historian. REVIEW OF SYSTEMS: CONSTITUTIONAL: Denies acute: fever, diaphoresis, chills, generalized weakness. HEAD: Denies acute: headache, photophobia Eyes: Denies acute: Double vision, vision loss, eye pain, eye discharge. EARS: Denies acute: tinnitus, hearing loss, ear discharge, ear pain, THROAT: Denies acute: sore throat, swelling, difficulty swallowing , pain with swallowing, change in voice. NECK: Denies acute: neck pain, neck swelling, stiff neck. HEART: Denies acute : chest pain, palpitations, LUNGS: Denies acute: SOB, wheezing, cough, hemoptysis ABDOMEN: Denies acute: abdominal pain, Nausea, Vomiting, diarrhea, melena , hematemesis, hematochezia SKIN: Denies acute: rash, redness, lesions, itchiness. EXTREMITIES: Denies acute: calf pain, numbness, tingling, weakness, Denies acute: Low back pain. Neuro: Denies acute: focal neurological deficit, motor or sensory focal neurological deficit, tremors, seizure like activity, confusion, dizziness, change in mental status, loss of bowel or bladder function, cauda equina like symptoms. : Denies acute: dysuria, hematuria, flank pain, increase in urinary frequency. PSYCH: Denies acute: hallucination, suicidal ideation, homicidal ideation. PHYSICAL EXAM: General: ----no----acute distress, awake and alert. Head: normocephalic, atraumatic. No raccoon's eyes, no hernandez sign. Neck: supple, trachea is midline, no swelling. Throat: Normal phonation. Eyes:, no erythema, no purulent discharge, no proptosis, no icterus. Heart: regular rate, regular rhythm, no significant murmur appreciated. Lungs: no apparent respiratory distress, Able to speak in full sentences. No wheezing, no rhonchi, no crackles. No stridors Clear to auscultation bilaterally. Abdomen: non tender to palpation, non distended, soft, no guarding, no rebound, + bowel sounds. obese. Neuro: Awake, Alert, oriented to name, self, situation, follows commands GCS=15. Speech is normal. Skin: no petechia, no purpura, no cyanosis, non-pale, not jaundice. Lower extremities: --no - Pitting edema no deformity, no focal swelling, no calf TTP. Evaluation of the area of complaint: Left posterior upper thigh focal tenderness to palpation without any erythema or palpable masses or swelling. Makes eye contact. moves all four extremities. Face: no apparent facial droop. Ambulating in the ED independently. ED COURSE: DISCLAIMER: This medical document was created using an electronic medical record system with voice recognition software and computerized dictation system. Although this document has been carefully reviewed, there might still be some phonetic and typographical errors. Occasional wrong-word or "sound-alike" substitutions may have occurred due to the inherent limitations of voice recognition software. These areas are purely typographical due to imperfections of the software programs and do not reflect any compromise in the patient's medical care. Please read the chart carefully and recognize, using context, where these substitutions have occurred. Chief Complaint: Lower Extremity Time Seen by MD: 18:32 Primary Care Provider: DAY Reviewed Notes: Nurses Notes, Allergies Allergies: Coded Allergies: Penicillins (Verified Adverse Reaction, Unknown, 09/15/23) SENSITIVITY PER PT, NOT ALLERGY Sulfa Antibiotics (Verified Adverse Reaction, Unknown, 09/15/23) SENSITIVITY PER PT, NOT ALLERGY Home Meds Active Scripts Hydrocodone-Acetaminophen (Hydrocodone Bitartrate/AC 5-325 mg) 1 Tab Tab, 1 TAB PO Q6HP PRN, #20 TAB prn breakthrough pain Prov:JONAS GOLD MD 08/13/24 Sucralfate (CARAFATE) 1 Gm Tab, 1 GM OR Q12HP PRN, #30 TAB prn abdominal pain Prov:JONAS GOLD MD 08/13/24 Carisoprodol (Soma) 250 Mg Tab, 250 MG PO Q12HP PRN for 3 Days, #6 TAB Prov:LEONILA HOWARD NP 02/15/24 Levofloxacin Hemihydrate (LEVAQUIN 500 MG) 500 Mg Tab, 500 MG PO DAILY for 5 Days, #5 TAB Prov:JAYDEN FERGUSON MD 01/04/24 Prednisone (Prednisone) 20 Mg Tab, 20 MG PO QAM for 5 Days, #10 MG Prov:JAYDEN FERGUSON MD 01/04/24 Reported Medications Pilocarpine Hcl (Salagen) 5 Mg Tab, 5 MG PO BID, TAB 01/01/24 Acyclovir (Acyclovir) 400 Mg Tab, 400 MG PO DAILY, TAB 01/01/24 Hydroxychloroquine Sulfate (Hydroxychloroquine Sulfat) 200 Mg Tab, 200 MG PO DAILY, MG 01/01/24 Amitriptyline Hcl (Amitriptyline Hcl) 10 Mg Tab, 10 MG PO HS, MG 01/01/24 Iegcvdzeouk-Flruacunyult-Nurue (Trelegy Ellipta 100-62.5-25 Mcg/INH) 1 Aer Aer, 1 AER IN DAILY, AER 01/01/24 Atenolol (Atenolol) 50 Mg Tab, 50 MG PO DAILY, TAB 01/01/24 Olmesartan Medoxomil (Benicar) 20 Mg Tab, 1 TAB PO DAILY for HTN, #30 TAB 5 Refills 02/16/23 Hydrocodone-Acetaminophen (Hydrocodone Bitartrate/AC 10-325 mg) 1 Tab Tab, 1 TAB PO TID PRN for PAIN SCALE 7 THRU 10, TAB 02/16/23 Tamsulosin Hcl (Flomax) 0.4 Mg Cap, 1 CAP PO DAILY 02/16/23 Albuterol Sulfate (Proair Digihaler) 108 Mcg/Act Aer, 108 MCG IN BIDP PRN for FOR COUGH, AER 02/16/23 Levothyroxine Sodium (Levothyroxine Sodium) 125 Mcg Tab, 1 TAB PO DAILY 12/19/22 Dexlansoprazole (Dexilant) 60 Mg Cap, 60 MG PO DAILY for GERD, CAP 10/16/17 Alprazolam (Xanax) 1 Mg Tab, 1 TAB PO TID, #60 TAB 10/16/17 Information Source: Patient Mode of Arrival: Ambulatory Past Medical History PAST MEDICAL HISTORY: Anxiety, Asthma, COPD, HTN, Thyroid, UTI'S Surgical History: Cholecystectomy Family History Family History: Family hx of DM, Family hx of Cancer, Family hx of heart brian Social History Smoker: Non-Smoker Alcohol: Denies ETOH Use Drugs: Denies Drug Use Lives In: Home Was a procedure done? Was a procedure done?: No EKG EKG : Pulse Rate (adult): 89 Cardiac Rhythm: NSR Block: RBBB Differential Diagnosis EXT Differential Diagnosis: Cellulitis, CHF, Deep Vein Thrombosis, Compartment Syndrome, Fracture, Sprain, Strain, Neurovascular injury, Arthritis, Other (Hematoma, thrombophlebitis) X-Ray, Labs, Meds, VS Vital Signs Date Time Temp Pulse Resp B/P (MAP) Pulse Ox O2 Delivery O2 Flow Rate FiO2 03/17/25 22:40 18 98 Room Air* 0 21 03/17/25 22:35 89 03/17/25 22:33 89 03/17/25 22:28 96 18 129/76 (93) 98 03/17/25 19:46 98.6 104 18 139/91 (107) 97 98.6 03/17/25 17:58 97.9 96 16 128/87 99 97.9 Lab Test 03/17/25 20:24 03/17/25 18:37 Range/Units Troponin I High Sensitivity 4 3 L </=54 ng/L White Blood Count 7.4 4.4-10.8 10^3/uL Red Blood Count 5.60 4.5-5.90 10^6/uL Hemoglobin 15.4 13.5-17.5 g/dL Hematocrit 45.8 41.0-53.0 % Mean Corpuscular Volume 81.9 80.0-100.0 fL Mean Corpuscular Hemoglobin 27.5 L 28.0-32.0 pg Mean Corpuscular Hemoglobin Concent 33.5 32.0-36.0 g/dL Red Cell Distribution Width 20.5 H 11.8-14.3 % Platelet Count 219 140-450 10^3/uL Mean Platelet Volume 7.8 6.9-10.8 fL Neutrophils (%) (Auto) 61.8 37.0-80.0 % Lymphocytes (%) (Auto) 26.1 10.0-50.0 % Monocytes (%) (Auto) 8.5 0.0-12.0 % Eosinophils (%) (Auto) 3.0 0.0-7.0 % Basophils (%) (Auto) 0.6 0.0-2.0 % Neutrophils # (Auto) 4.6 1.6-8.6 10 ^3/uL Lymphocytes # (Auto) 1.9 0.4-5.4 10 ^3/uL Monocytes # (Auto) 0.6 0-1.3 10 ^3/uL Eosinophils # (Auto) 0.2 0-0.8 10 ^3/uL Basophils # (Auto) 0 0-0.2 10 ^3/uL Nucleated Red Blood Cells 0.3 % Sodium Level 139 136-145 mmol/L Potassium Level 3.8 3.5-5.1 mmol/L Chloride Level 107 98-107 mmol/L Carbon Dioxide Level 20 20-31 mmol/L Anion Gap 12 5-15 Blood Urea Nitrogen 18 9-23 mg/dL Creatinine 1.14 0.700-1.30 mg/dL Glomerular Filtration Rate Calc 71 >90 mL/min BUN/Creatinine Ratio 15.8 10.0-20.0 Serum Glucose 112 H 74-106 mg/dL Lactic Acid Level 1.0 0.4-2.0 mmol/L Calcium Level 9.5 8.7-10.4 mg/dL Total Bilirubin 0.3 0.2-1.0 mg/dL Aspartate Amino Transferase (AST) 22 13-40 U/L Alanine Aminotransferase (ALT) 32 7-40 U/L Alkaline Phosphatase 99 46-116 U/L C-Reactive Protein High Sensitivity 0.23 <1.0 mg/dL B-Type Natriuretic Peptide 2.04 0-100 pg/mL Total Protein 7.1 5.7-8.2 g/dL Albumin 4.3 3.2-4.8 g/dL [facility] [id number] [place] [facility] [place] [id number] Ph: [phone] DIAGNOSTIC IMAGING Diagnostic Imaging Report : [id number] Signed PATIENT: JUAN HALL ACCT: [id number] UNIT: [id number] : 1960 LOC: ER ROOM / BED: / AGE / SEX: 64 / M ADM STATUS: REG ER SERVICE 25 ORDERING PHYSICIAN: HEIDE FERRARO DO PROCEDURE(s): BLDVT - BiLat Lower DVT REASON: L post thigh pain ORDER NUMBER(s): [id number], ACCESSION NUMBER(s): [id number] Bilateral lower extremity venous duplex Clinical History: L post thigh pain Comparison: None Technique: Duplex Doppler evaluation of the deep venous systems of both lower extremities from the common femoral veins to the popliteal veins including color Doppler and spectral/pulsed waveform analysis was performed. Findings: RIGHT SIDE: The common femoral vein demonstrates appropriate compressibility and waveform variability. There is compressibility/patency of the great saphenous vein at the proximal thigh. The femoral vein demonstrates appropriate compressibility and waveform variability. The deep femoral vein demonstrates appropriate compressibility and waveform variability. The popliteal vein demonstrates appropriate compressibility and waveform variability. There is normal compressibility at the tibioperoneal trunk. LEFT SIDE: The common femoral vein demonstrates appropriate compressibility and waveform variability. There is compressibility/patency of the great saphenous vein at the proximal thigh. The femoral vein demonstrates appropriate compressibility and waveform variability. The deep femoral vein demonstrates appropriate compressibility and waveform variability. The popliteal vein demonstrates appropriate compressibility and waveform variability. There is normal compressibility at the tibioperoneal trunk. Impression: 1. No right or left femoropopliteal venous thrombosis. ATED BY: MELANIE OLIVIER Jr., DO DICTATED DATE/TIME: 03/17/252047 SIGNED BY: MELANIE OLIVIER Jr., SIGNED DATE/TIME: 03/17/252047 CC: [address] [address] Ph: [phone] DIAGNOSTIC IMAGING Diagnostic Imaging Report : [id number] Signed PATIENT: JUAN HALL ACCT: [id number] UNIT: [id number] : 1960 LOC: ER ROOM / BED: / AGE / SEX: 64 / M ADM STATUS: REG ER SERVICE 17 ORDERING PHYSICIAN: HEIDE FERRARO DO PROCEDURE(s): CXRP - CHEST PORTABLE REASON: cp ORDER NUMBER(s): [id number], ACCESSION NUMBER(s): [id number] CHEST RADIOGRAPH Indication: cp Technique: Single frontal view of the chest was obtained Comparison: XY CHEST XRAY 1 VIEW on DOS: 10/18/24, XY CHEST XRAY 1 VIEW on DOS: 01/03/24, XY CHEST XRAY 1 VIEW on DOS: 12/30/23 FINDINGS: Lines and Tubes: None Lungs: No focal consolidation. Pleura: No effusion. No pneumothorax. Cardiomediastinal contours: Unremarkable Bones: No acute osseous abnormality. IMPRESSION: 1. No acute cardiopulmonary disease. ATED BY: MELANIE OLIVIER Jr., DO DICTATED DATE/TIME: 03/17/252050 SIGNED BY: MELANIE OLIVIER Jr., DO SIGNED DATE/TIME: 03/17/252050 CC: Time of 1ST Reevaluation: 18:28 Reevaluation 1ST: Unchanged Patient Education/Counseling: Diagnosis, Treatment Family Education/Counseling: No Family Present Comments MDM: patient presented with the above HPI.-- left posterior thigh pain---workup was initiated. patient was found with the above mentioned diagnosis. the following medications were ordered: please refer to order lists of meds and tests obtained by myself Dr. Ferraro. Patient ED course and VS have been stabilized. Patient has been reassessed in the ED and remained in a stable condition. Pertinent incidental findings were discussed with the patient and/or family. Patient/family voices understanding and is agreeable with plan. Patient has been observed in the ED adequate length of time to insure improvement/stability. Escalation of care considered: Consideration of escalation to observation or admission Patient has an underlying anxiety overall. He takes daily medications for it. Workup has been unremarkable as far as his concern for blood clot in his leg. Patient was DISCHARGED home in a stable condition. All the reports of any imaging studies that were ordered by myself were reviewed by myself. Sepsis Sepsis Reasesment Focused Exam Orders: Laboratory Tests 03/17/25 18:37: Lactic Acid Level 1.0 Departure 1 Departure Time of Disposition: 21:49 Impression: Primary Impression: Left thigh pain Disposition: HOME / SELF CARE / HOMELESS Condition: Stable Additional Instructions: Additional instructions: Please read all instructions provided in this packet carefully. You MUST follow-up with your primary care/family doctor in 1 to 2 days. If you are unable to see your primary care/family doctor, please return to our emergency room for re-assessment and re-evaluation in 1 to 2 days. Return to the emergency room here in our facility or to the nearest ER [facility] if your symptoms change or worsen. CONSULTATIONS: you MUST Follow-up for consultation as soon as possible with: ----CARDIOLOGY IN 1-2 DAYS. PLEASE CALL FOR APPOINTMENT. You MUST call the consultants office yourself to make an appointment. You may need to arrange that through your insurance and/or your primary/family doctor. If you are unable to see the financial management consultant in 1 to 2 days, you must return to our emergency room (or any other ER of your choice) for re-assessment and re- evaluation. Adequate fluid hydration. REPEAT EXTREMITY ULTRASOUND IN 3-4 DAYS. Although you have been discharged from the Emergency Department, this does not mean that you have a "clean bill of health". No definitive diagnosis for your symptoms has been made today. It is possible that you are in the process of developing a serious illness. This is why you must return to the ED without fail if any new or worsening symptoms develop. Below is a copy of your radiological report for follow up: [place] [address] Ph: [phone] DIAGNOSTIC IMAGING Diagnostic Imaging Report : [id number] Signed PATIENT: JUAN HALL ACCT: [id number] UNIT: [id number] : 1960 LOC: ER ROOM / BED: / AGE / SEX: 64 / M ADM STATUS: REG ER SERVICE 17 ORDERING PHYSICIAN: HEIDE FERRARO DO PROCEDURE(s): CXRP - CHEST PORTABLE REASON: cp ORDER NUMBER(s): [id number], ACCESSION NUMBER(s): [id number] CHEST RADIOGRAPH Indication: cp Technique: Single frontal view of the chest was obtained Comparison: XY CHEST XRAY 1 VIEW on DOS: 10/18/24, XY CHEST XRAY 1 VIEW on DOS: 01/03/24, XY CHEST XRAY 1 VIEW on DOS: 12/30/23 FINDINGS: Lines and Tubes: None Lungs: No focal consolidation. Pleura: No effusion. No pneumothorax. Cardiomediastinal contours: Unremarkable Bones: No acute osseous abnormality. IMPRESSION: 1. No acute cardiopulmonary disease. ATED BY: MELANIE OLIVIER Jr., DO DICTATED DATE/TIME: 03/17/252050 SIGNED BY: MELANIE OLIVIER Jr., SIGNED DATE/TIME: 03/17/252050 CC: [place] [address] Ph: [phone] DIAGNOSTIC IMAGING Diagnostic Imaging Report : [id number] Signed PATIENT: JUAN HALL ACCT: [id number] UNIT: [id number] : 1960 LOC: ER ROOM / BED: / AGE / SEX: 64 / M ADM STATUS: REG ER SERVICE 25 ORDERING PHYSICIAN: HEIDE FERRARO DO PROCEDURE(s): BLDVT - BiLat Lower DVT REASON: L post thigh pain ORDER NUMBER(s): [id number], ACCESSION NUMBER(s): [id number] Bilateral lower extremity venous duplex Clinical History: L post thigh pain Comparison: None Technique: Duplex Doppler evaluation of the deep venous systems of both lower extremities from the common femoral veins to the popliteal veins including color Doppler and spectral/pulsed waveform analysis was performed. Findings: RIGHT SIDE: The common femoral vein demonstrates appropriate compressibility and waveform variability. There is compressibility/patency of the great saphenous vein at the proximal thigh. The femoral vein demonstrates appropriate compressibility and waveform variability. The deep femoral vein demonstrates appropriate compressibility and waveform variability. The popliteal vein demonstrates appropriate compressibility and waveform variability. There is normal compressibility at the tibioperoneal trunk. LEFT SIDE: The common femoral vein demonstrates appropriate compressibility and waveform variability. There is compressibility/patency of the great saphenous vein at the proximal thigh. The femoral vein demonstrates appropriate compressibility and waveform variability. The deep femoral vein demonstrates appropriate compressibility and waveform variability. The popliteal vein demonstrates appropriate compressibility and waveform variability. There is normal compressibility at the tibioperoneal trunk. Impression: 1. No right or left femoropopliteal venous thrombosis. ATED BY: MELANIE OLIVIER Jr., DO DICTATED DATE/TIME: 03/17/252047 SIGNED BY: MELANIE OLIVIER Jr., SIGNED DATE/TIME: 03/17/252047 CC: Discharged With: Self Critical Care Note Critical Care Time?: No I personally scribed for RONAN,HEIDE J DO ([email or web address]) on 03/17/25 at 18:32. Electronically submitted by Garrison Cordova ([facility] I personally scribed for RONAN,HEIDE J DO ([email or web address]) on 03/17/25 at 20:26. Electronically submitted by Garrison Cordova ([facility]). I personally scribed for RONAN,HEIDE J DO ([email or web address]) on 03/17/25 at 21:01. Electronically submitted by Garrison Cordova ([facility]). I personally scribed for RONAN,HEIDE J DO ([email or web address]) on 03/17/25 at 21:59. Electronically submitted by Garrison Cordova ([facility]). I personally scribed for RONAN,HEIDE J DO ([email or web address]) on 03/17/25 at 22:27. Electronically submitted by Garrison Cordova ([facility]). I personally scribed for RONAN,HEIDE J DO ([email or web address]) on 03/17/25 at 22:35. Electronically submitted by Garrison Cordova ([facility]). RONAN,HEIDE J DO Mar 17, 2025 18:32
[2025-03-17 19:16] LABS: Hematocrit 45.8 % (41.0-53.0); Hemoglobin 15.4 g/dL (13.5-17.5); Mean Corpuscular Hemoglobin 27.5 pg (28.0-32.0); Mean Corpuscular Volume 81.9 fL (80.0-100.0); Nucleated Red Blood Cells % 0.3 %
[2025-03-17 19:32] LABS: Alanine Aminotransferase 32 U/L (7-40); Albumin 4.3 g/dL (3.2-4.8); Alkaline Phosphatase 99 U/L (46-116); Anion Gap 12 (5-15); BUN/Creatinine Ratio 15.8 (10.0-20.0); Blood Urea Nitrogen 18 mg/dL (9-23); Calcium 9.5 mg/dL (8.7-10.4); Carbon Dioxide 20 mmol/L (20-31); Potassium 3.8 mmol/L (3.5-5.1); Sodium 139 mmol/L (136-145); Total Protein 7.1 g/dL (5.7-8.2)
[2025-03-17 19:33] LABS: Bilirubin, Total 0.3 mg/dL (0.2-1.0)
[2025-03-17 19:37] LABS: Chloride 107 mmol/L (98-107); Glucose 112 mg/dL (74-106)
[2025-03-17 19:46] VITALS: TEMP 98.6
--- NOTE | 2025-03-17 20:51 | DVH ---
Bilateral lower extremity venous duplex Clinical History: L post thigh pain Comparison: None Technique: Duplex Doppler evaluation of the deep venous systems of both lower extremities from the common femoral veins to the popliteal veins including color Doppler and spectral/pulsed waveform analysis was performed. Findings: RIGHT SIDE: The common femoral vein demonstrates appropriate compressibility and waveform variability. There is compressibility/patency of the great saphenous vein at the proximal thigh. The femoral vein demonstrates appropriate compressibility and waveform variability. The deep femoral vein demonstrates appropriate compressibility and waveform variability. The popliteal vein demonstrates appropriate compressibility and waveform variability. There is normal compressibility at the tibioperoneal trunk. LEFT SIDE: The common femoral vein demonstrates appropriate compressibility and waveform variability. There is compressibility/patency of the great saphenous vein at the proximal thigh. The femoral vein demonstrates appropriate compressibility and waveform variability. The deep femoral vein demonstrates appropriate compressibility and waveform variability. The popliteal vein demonstrates appropriate compressibility and waveform variability. There is normal compressibility at the tibioperoneal trunk. Impression: 1. No right or left femoropopliteal venous thrombosis.
--- NOTE | 2025-03-17 20:54 | DVH ---
CHEST RADIOGRAPH Indication: cp Technique: Single frontal view of the chest was obtained Comparison: XY CHEST XRAY 1 VIEW on DOS: 10/18/24, XY CHEST XRAY 1 VIEW on DOS: 01/03/24, XY CHEST XRAY 1 VIEW on DOS: 12/30/23 FINDINGS: Lines and Tubes: None Lungs: No focal consolidation. Pleura: No effusion. No pneumothorax. Cardiomediastinal contours: Unremarkable Bones: No acute osseous abnormality. IMPRESSION: 1. No acute cardiopulmonary disease.
[2025-03-17 22:28] VITALS: BP 129/76
[2025-03-17 22:35] VITALS: PULSE 89
--- NOTE | 2025-03-17 22:39 | ECG ---
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
[2025-03-17 22:40] VITALS: RESP 18; O2SAT 98
== END 2025-03-17 22:54 | disposition home or self-care (01) ==
LOC: ER 17:56
DX: M79.652 Pain in left thigh (principal); E78.1 Pure hyperglyceridemia; F41.9 Anxiety disorder, unspecified; I11.0 Hypertensive heart disease with heart failure; E03.9 Hypothyroidism, unspecified; I45.10 Unspecified right bundle-branch block; Z79.899 Other long term (current) drug therapy; Z87.440 Personal history of urinary (tract) infections; Z88.0 Allergy status to penicillin; Z79.624 Long term (current) use of inhibitors of nucleotide synthesis; Z88.2 Allergy status to sulfonamides; Z90.49 Acquired absence of other specified parts of digestive tract; I50.30 Unspecified diastolic (congestive) heart failure; E66.9 Obesity, unspecified
CPT/HCPCS: 36415; 71045; 80053; 83605; 83880; 84484; 85025; 86141; 93005; 93970

== ENCOUNTER 2025-04-16 09:20 | Inpatient (IN) | payer MEDICARE, MEDICAID ==
[~2025-04-16] VITALS: Ht 172.7 cm; Wt 97.0 kg
--- NOTE | 2025-04-16 09:55 | ED.PDOC ---
SOB-HPI HPI Comments This is a 64 year old male presenting to the ED with chief complaint of cough. Patient reports that he has been experiencing a cough with associated fever, body aches, and chills since yesterday. Patient relays that he had been exposed to COVID-19 due to his mother having an active infection. Patient denies any SOB, chest pain, dizziness, headache, or N/V. Chief Complaint: Cough Time Seen by MD: 09:53 Primary Care Provider: DAY Reviewed notes: Nurses Notes, Medications, Allergies Information Source: Patient Mode of Arrival: Ambulatory Severity: Moderate Timing: Days Duration: Since onset Context: At Rest PE Risk Factors: None History of: None Prehospital treatment: None Modifying Factors: Nothing Associated Signs and Symptoms: Fever, Cough If cough with SOB: Non-Productive Past Medical History PAST MEDICAL HISTORY: Anxiety, Asthma, COPD, HTN, Thyroid, UTI'S Surgical History: Cholecystectomy Family History Family History: Family hx of DM, Family hx of Cancer, Family hx of heart brian Social History Smoker: Non-Smoker Alcohol: Denies ETOH Use Drugs: Denies Drug Use Lives In: Home Constitutional: reports: chills, fever, malaise; denies: diaphoresis, fatigue, sweats, weakness, others EENTM: denies: blurred vision, double vision, ear bleeding, ear discharge, ear drainage, ear pain, ear ringing, eye pain, eye redness, hearing loss, mouth pain, mouth swelling, nasal discharge, nose bleeding, nose congestion, nose pain, photophobia, tearing, throat pain, throat swelling, voice changes, others Respiratory: reports: cough; denies: hemoptysis, orthopnea, SOB at rest, shortness of breath, SOB with excertion, stridor, wheezing, others Cardiovascular: denies: chest pain, dizzy spells, diaphoresis, Dyspnea on exertion, edema, irregular heart beat, left arm pain, lightheadedness, palpitations, PND, syncope, others Gastrointestinal: denies: abdomen distended, abdominal pain, blood streaked bowels, constipated, diarrhea, dysphagia, difficulty swallowing, hematemesis, melena, nausea, poor appetite, poor fluid intake, rectal bleeding, rectal pain, vomiting, others Genitourinary: denies: burning, dysuria, flank pain, frequency, hematuria, incontinence, penile discharge, penile sore, pain, testicle pain, testicle swelling, urgency, others Neurological: denies: dizziness, fainting, headache, left sided numbness, left sided weakness, numbness, paresthesia, pre-existing deficit, right sided numbness, right sided weakness, seizure, speech problems, tingling, tremors, weakness, others Musculoskeletal: denies: back pain, gout, joint pain, joint swelling, muscle pain, muscle stiffness, neck pain, others Integumetry: denies: bruises, change in color, change in hair/nails, dryness, laceration, lesions, lumps, rash, wounds, others Allergic/Immunocompromised: denies: Difficulty Healing, Frequent Infections, Hives, Itching, others Hematologic/Lymphatic: denies: anemia, blood clots, easy bleeding, easy bruising, swollen glands, others Endocrine: denies: excessive hunger, excessive sweating, excessive thirst, excessive urination, flushing, intolerance to cold, intolerance to heat, unexplained weight gain, unexplained weight loss, others Psychiatric: denies: anxiety, bipolar disorder, depression, hopeless, panic disorder, schizophrenia, sleepless, suicidal, others All Other Systems: Reviewed and Negative Physical Exam General Appearance: Moderate Distress, Normal HEENT: Normal ENT Inspection, Pharynx Normal, TMs Normal Neck: Full Range of Motion, Non-Tender, Normal, Normal Inspection Respiratory: Chest Non-Tender, No Accessory Muscle Use, No Respiratory Distress, Other (Coarse breath sounds) Cardiovascular: No Edema, No JVD, No Murmur, No Gallop, Normal Peripheral Pulses, Regular Rate/Rhythm Breast Exam: Deferred Gastrointestinal: No Organomegaly, Non Tender, No Pulsatile Mass, Normal Bowel Sounds, Soft Genitalia: Deferred Pelvic: Deferred Rectal: Deferred Extremities: No calf tenderness, Normal capillary refill, Normal inspection, Normal range of motion, Non-tender, No pedal edema Musculoskeletal : Apperance: Normal Neurologic: Alert, tipping machine operator II-XII nml as Tested, No Motor Deficits, Normal Affect, Normal Mood, No Sensory Deficits Cerebellar Function: Normal Reflexes: Normal Skin: Dry, Normal Color, Warm Peripheral Pulses: 3+ Radial (R), 3+ Radial (L) Lymphatic: No Adenopathy Was a procedure done? Was a procedure done?: No Differential Dx Differential Diagnosis: Bronchitis, Pneumonia, URI X-Ray, Labs, Meds, VS Vital Signs Date Time Temp Pulse Resp B/P (MAP) Pulse Ox O2 Delivery O2 Flow Rate FiO2 04/16/25 10:36 99.1 76 16 149/85 (106) 95 99.1 04/16/25 10:36 76 16 95 Room Air 04/16/25 09:22 97.8 86 18 138/67 94 97.8 Lab Test 04/16/25 10:24 04/16/25 10:13 Range/Units Urine Color Colorless Yellow Urine Clarity Clear Clear Urine pH 5.5 5.0-9.0 Urine Specific [place] 1.005 1.001-1.035 Urine Protein Negative Negative Urine Ketones Negative Negative Urine Blood Negative Negative /uL Urine Nitrite Negative Negative Urine Bilirubin Negative Negative Urine Urobilinogen Normal Negative mg/dL Urine Leukocyte Esterase Negative Negative /uL Urine RBC <1 0 - 3 /hpf Urine Microscopic WBC < 1 0-3 /HPF Urine Squamous Epithelial Cells None seen <5 /hpf Urine Bacteria None seen None Seen /hpf Urine Glucose Normal Normal mg/dL White Blood Count 4.3 L 4.4-10.8 10^3/uL Red Blood Count 5.61 4.5-5.90 10^6/uL Hemoglobin 15.7 13.5-17.5 g/dL Hematocrit 46.2 41.0-53.0 % Mean Corpuscular Volume 82.4 80.0-100.0 fL Mean Corpuscular Hemoglobin 27.9 L 28.0-32.0 pg Mean Corpuscular Hemoglobin Concent 33.9 32.0-36.0 g/dL Red Cell Distribution Width 16.8 H 11.8-14.3 % Platelet Count 217 140-450 10^3/uL Mean Platelet Volume 6.8 L 6.9-10.8 fL Neutrophils (%) (Auto) 74.1 37.0-80.0 % Lymphocytes (%) (Auto) 9.0 L 10.0-50.0 % Monocytes (%) (Auto) 13.5 H 0.0-12.0 % Eosinophils (%) (Auto) 3.0 0.0-7.0 % Basophils (%) (Auto) 0.4 0.0-2.0 % Neutrophils # (Auto) 3.2 1.6-8.6 10 ^3/uL Lymphocytes # (Auto) 0.4 0.4-5.4 10 ^3/uL Monocytes # (Auto) 0.6 0-1.3 10 ^3/uL Eosinophils # (Auto) 0.1 0-0.8 10 ^3/uL Basophils # (Auto) 0 0-0.2 10 ^3/uL Nucleated Red Blood Cells 0.2 % D-Dimer, Quantitative 0.42 0.0-0.49 mg/L FEU Sodium Level 138 136-145 mmol/L Potassium Level 4.3 3.5-5.1 mmol/L Chloride Level 104 98-107 mmol/L Carbon Dioxide Level 25 20-31 mmol/L Anion Gap 9 5-15 Blood Urea Nitrogen 10 9-23 mg/dL Creatinine 1.21 0.700-1.30 mg/dL Glomerular Filtration Rate Calc 66 >90 mL/min BUN/Creatinine Ratio 8.3 L 10.0-20.0 Serum Glucose 99 74-106 mg/dL Calcium Level 9.4 8.7-10.4 mg/dL Troponin I High Sensitivity < 3 L </=54 ng/L Patient alert. Complaining of cough shortness a breath. Has been exposed to someone sick at home. Vitals stable. Was given steroid. Was given Levaquin. Pneumonitis Explained to the patient. Continue monitoring. [place] [address] Ph: [phone] DIAGNOSTIC IMAGING Diagnostic Imaging Report : [id number] Signed PATIENT: JUAN HALL ACCT: [id number] UNIT: [id number] : 1960 LOC: ER ROOM / BED: / AGE / SEX: 64 / M ADM STATUS: REG ER SERVICE [id number] ORDERING PHYSICIAN: PAZ TAYLOR MD PROCEDURE(s): CXRP - CHEST PORTABLE REASON: cough ORDER NUMBER(s): [id number], ACCESSION NUMBER(s): [id number] CHEST RADIOGRAPH INDICATION: cough TECHNIQUE: Single frontal view of the chest was obtained. COMPARISON: XY CHEST PORTABLE on DOS: 03/17/25, XY CHEST XRAY 1 VIEW on DOS: 10/18/24 FINDINGS: No focal consolidation. No significant pleural effusion. No pneumothorax. Stable cardiomediastinal silhouette. IMPRESSION: No acute pulmonary process. ATED BY: ABBIE WELLER MD DICTATED DATE/TIME: 04/16/25 102 SIGNED BY: ABBIE WELLER MD SIGNED DATE/TIME: 04/16/25 102 CC: Images Reviewed?: Images reviewed and evaluated by me Time of 1ST Reevaluation: 10:53 Reevaluation 1ST: Unchanged Patient Education/Counseling: Diagnosis, Treatment Family Education/Counseling: Diagnosis, Treatment SEPSIS Sepsis Screen Date sepsis recognized/suspect: Apr 16, 2025 Time Sepsis recognized/suspect: 921 Recent Procedure: No On Antibiotic Therapy: No Respiratory Rate >20: No Heart Rate >90: No Temp<36 C (96.8 F) or >38.3 C: No SBP <90 or MAP <65 mmHG: No New Acute Mental Status Change: No Is the patient on CPAP, BIPAP,: No Physician Orders Chest Portable (04/16/25 09:51) Vital Signs Date Time Temp Pulse Resp B/P (MAP) Pulse Ox O2 Delivery O2 Flow Rate FiO2 04/16/25 10:36 99.1 76 16 149/85 (106) 95 99.1 04/16/25 10:36 76 16 95 Room Air 04/16/25 09:22 97.8 86 18 138/67 94 97.8 Laboratory Tests Test 04/16/25 10:13 White Blood Count 4.3 10^3/uL (4.4-10.8) L Departure 1 Departure Time of Disposition: 10:03 Impression: Primary Impression: Pneumonitis Disposition: ADMITTED INPATIENT Admit to: Med Surg Condition: Guarded Critical Care Note Critical Care Time?: Yes (90 min-critical care time only) Stability Stability form required: No Heart Score Heart Score: Heart Score Response (Comments) Value History N/A 0 EKG N/A 0 Age N/A 0 Risk Factors N/A 0 Troponin N/A 0 Total 0 I personally scribed for PAZ TAYLOR MD ([email or web address]) on 04/16/25 at 09:55. Electronically submitted by Mik English ([email or web address]). I personally scribed for PAZ TAYLOR MD ([email or web address]) on 04/16/25 at 11:03. Electronically submitted by Mik English ([email or web address]). PAZ TAYLOR MD Apr 16, 2025 09:55
--- NOTE | 2025-04-16 10:23 | DVH ---
CHEST RADIOGRAPH INDICATION: cough TECHNIQUE: Single frontal view of the chest was obtained. COMPARISON: XY CHEST PORTABLE on DOS: 03/17/25, XY CHEST XRAY 1 VIEW on DOS: 10/18/24 FINDINGS: No focal consolidation. No significant pleural effusion. No pneumothorax. Stable cardiomediastinal silhouette. IMPRESSION: No acute pulmonary process.
[2025-04-16 10:26] LABS: Hematocrit 46.2 % (41.0-53.0); Hemoglobin 15.7 g/dL (13.5-17.5); Mean Corpuscular Hemoglobin 27.9 pg (28.0-32.0); Mean Corpuscular Volume 82.4 fL (80.0-100.0); Nucleated Red Blood Cells % 0.2 %
[2025-04-16 10:33] LABS: Urine Protein, UAD Negative (Negative)
[2025-04-16 10:35] LABS: Chloride 104 mmol/L (98-107); Potassium 4.3 mmol/L (3.5-5.1); Sodium 138 mmol/L (136-145)
[2025-04-16 10:36] LABS: Anion Gap 9 (5-15); Calcium 9.4 mg/dL (8.7-10.4); Carbon Dioxide 25 mmol/L (20-31)
[2025-04-16 10:41] LABS: BUN/Creatinine Ratio 8.3 (10.0-20.0); Blood Urea Nitrogen 10 mg/dL (9-23); Glucose 99 mg/dL (74-106)
[2025-04-16] MEDS: methylPREDNISolone SOD SUCC 125 MG/2 ML VL IV ONE (11:37)
[2025-04-16] MEDS ORDERED: ONDANSETRON HCL 4 MG/2 ML VIAL IV PRN (12:45)
[2025-04-16] MEDS ORDERED: NITROGLYCERIN 0.4 MG SL TAB SL PRN (12:45)
[2025-04-16] MEDS ORDERED: MORPHINE SULFATE INJ 2 MG/ml SYRG IV PRN (12:45)
[2025-04-16 12:58] LABS: Benzodiazephine Screen, Urine Neg (NEGATIVE); Opiate Scree,Urine Neg (NEGATIVE)
[2025-04-16 13:06] LABS: Amphetamine Screen, Urine Neg (NEGATIVE); Barbiturate Scree,Urine Neg (NEGATIVE); Cannabinoid Screen, Urine Neg (NEGATIVE); Cocaine Screen, Urine Neg (NEGATIVE); Phencyclidine Screen, Urine Neg (NEGATIVE)
[2025-04-16] MEDS: SODIUM CHLOR 0.9% PF (SALINE LOCK) 10ML VIAL/SYR IV SCH (14:17)
[2025-04-16 14:30] LABS: COVID19 ANTIGEN SOFIA FIA NEGATIVE (NEGATIVE)
[2025-04-16] MEDS ORDERED: ALBUTEROL SULF 2.5 MG/0.5ML(0.5%) NEB SOLN NEB PRN (14:30)
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
[2025-04-16] MEDS: SODIUM CHLORIDE 0.9% 1,000 ML IV SCH (16:26)
[2025-04-16] MEDS: PANTOPRAZOLE 40 MG/10 ML VIAL INJ IV ONE (16:28)
[2025-04-16] MEDS: ALPRAZolam 0.5 MG TAB PO SCH (22:00)
[2025-04-16] MEDS: ACETAMINOPHEN 325 MG TAB PO PRN (22:49)
[2025-04-17] VITALS (7 sets, daily range): BP systolic 116–154; BP diastolic 73–94; PULSE 73–87; RESP 14–20; TEMP 76–99.1; O2SAT 94–98
[2025-04-17 04:17] LABS: Hematocrit 43.7 % (41.0-53.0); Hemoglobin 14.4 g/dL (13.5-17.5); Mean Corpuscular Hemoglobin 27.3 pg (28.0-32.0); Mean Corpuscular Volume 83.0 fL (80.0-100.0); Nucleated Red Blood Cells % 0.1 %
[2025-04-17 04:46] LABS: Alanine Aminotransferase 27 U/L (7-40); Albumin 4.0 g/dL (3.2-4.8); Alkaline Phosphatase 94 U/L (46-116); Anion Gap 10 (5-15); BUN/Creatinine Ratio 9.7 (10.0-20.0); Blood Urea Nitrogen 12 mg/dL (9-23); Calcium 9.0 mg/dL (8.7-10.4); Carbon Dioxide 23 mmol/L (20-31); Chloride 105 mmol/L (98-107); Potassium 4.2 mmol/L (3.5-5.1); Sodium 138 mmol/L (136-145); Total Protein 6.7 g/dL (5.7-8.2)
[2025-04-17 04:47] LABS: Bilirubin, Total 0.3 mg/dL (0.2-1.0); Glucose 190 mg/dL (74-106)
[2025-04-17] MEDS: LEVOTHYROXINE SODIUM 100 MCG TAB PO SCH (06:39)
[2025-04-17] MEDS: LEVOTHYROXINE SODIUM 25 MCG TAB PO SCH (06:39)
[2025-04-17] MEDS: AZITHROMYCIN 500MG/250ML 250 ML IV SCH (09:41)
[2025-04-17] MEDS: PANTOPRAZOLE 40 MG/10 ML VIAL INJ IV SCH (09:41)
--- NOTE | 2025-04-17 12:50 | DVHPNRES ---
Progress Note Date Seen: Apr 17, 2025 Resident Creating Document: MAREN CAMARILLO RESIDENT Medical Necessity Reason Pt with a Central, PICC or Fol: No Subjective Review of Systems Patient is 64 years old male with a past medical history of asthma, COPD, hepatitis-C treated before, fatty liver/hepatic steatosis, autoimmune disease, BPH, abdominal aortic aneurysm presented to the ED with a the complaint of cough. As per patient he has been having cough for last 3 days with mild sputum production but could not give the exact color of the sputum, some body ache and fever at home. 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 Patient reported that his also having same symptoms. Denies other associated symptoms. Patient reported that approximately 2 years ago he tested positive for Aspergillus antibodies after being exposed to mold of same house. COVID and flu negative, UDS positive for fentanyl, UA negative, CXR no acute pulmonary disease. PMH-asthma, COPD, hepatitis-C treated before, fatty liver/hepatic steatosis, autoimmune disease, abdominal aortic aneurysm, BPH PSH- Annual fissure repair, cholecystectomy Allergy- penicillin, sulfa antibiotic Personal History/ Social History- denies smoking/alcoholism/drug abuse, lives at home ROS Cardiovascular- deny acute chest pain or palpitation Gastrointestinal- denies any rectal bleeding, nausea or vomiting Musculoskeletal-denies acute joint swelling or tenderness or redness Neurological- denies acute dysarthria, dysphagia, change in vision Psychiatry- denies depression or SI or HI Skin- denies acute rash or purpura Patient was seen today at bedside Labs and chart reviewed Ordered blood culture Pending sputum culture Continue IV antibiotic as prescribed Continue IV fluid Objective vital signs Vital Sign Date Time Temp Pulse Resp B/P (MAP) Pulse Ox O2 Delivery O2 Flow Rate FiO2 04/17/25 09:00 98.5 75 18 141/94 (110) 98 98.5 04/17/25 08:00 Room Air* 0 21 Total Intake and Output 04/16/25 04/16/25 04/17/25 15:00 23:00 07:00 Intake Total 100 ml 240 ml Balance 100 ml 240 ml medications Current Medications Medications Dose Ordered Sig/Lee Route Start Time Stop Time Status Last Admin Dose Admin Sodium Chloride 10 ml Q8HR IV 04/16/25 14:00 04/17/25 06:41 10 ML Sodium Chloride 1,000 ml @ 60 mls/hr [id number] IV 04/16/25 12:45 04/17/25 05:25 60 MLS/HR Ondansetron HCl 4 mg Q4HP PRN IV 04/16/25 12:45 Acetaminophen 650 mg Q6HP PRN PO 04/16/25 12:45 04/16/25 22:49 650 MG Nitroglycerin 0.4 mg Q5MINP PRN SL 04/16/25 12:45 Morphine Sulfate 2 mg Q30M PRN IV 04/16/25 12:45 Azithromycin 250 ml @ 125 mls/hr DAILY IV 04/17/25 10:00 04/17/25 09:41 125 MLS/HR Albuterol 2.5 mg Q6HPRN PRN NEB 04/16/25 14:30 UNV Tamsulosin HCl 0.4 mg QPM PO 04/17/25 18:00 Alprazolam 1 mg BID PO 04/16/25 22:00 Levothyroxine Sodium 100 mcg QAM@0600 PO 04/17/25 06:00 04/17/25 06:39 100 MCG Levothyroxine Sodium 25 mcg QAM@0600 PO 04/17/25 06:00 04/17/25 06:39 25 MCG Patient Own Medication 50 mg DAILY PO 04/18/25 10:00 UNV Patient Own Medication 60 mg DAILY PO 04/18/25 10:00 UNV Patient Own Medication 1 tab DAILY PO 04/18/25 10:00 UNV Al Hydrox/Mg Hydrox/Simethicone 15 ml Q8HP PRN PO 04/17/25 11:45 UNV Examination General examination- awake, alert, oriented HEENT- PEERLA, no acute nasal discharge Cardiovascular- S1-S2 audible, rate and rhythm regular, no murmur Respiratory- CTAB, no wheeze or rhonchi Gastrointestinal-nontender, bowel sound+. Nondistended Musculoskeletal-no acute joint swelling or tenderness or redness Lower extremity- no leg edema Neurological- cranial nerves intact, no acute dysarthria or dysphagia Psychiatry- denies depression or SI or HI Skin- no acute rash or purpura laboratory and microbiology Laboratory Tests 04/17/25 03:35 Test 04/17/25 03:35 Range/Units Serum Glucose 190 H 74-106 mg/dL Problem List/Assessment/Plan Problem List/Assessment/Plan Assessment and plan # suspected sepsis likely due to pneumonia Gram-positive versus Gram negative # suspected pneumonia Gram-positive versus Gram-negative -ordered blood culture -pending respiratory culture -continue IV antibiotic ceftriaxone and azithromycin -continue IV fluid as scribed -monitor vital # COPD/asthma -no acute exacerbation # hypothyroidism -resumed home medication levothyroxine # BPH -resumed home medication Flomax # history of hepatitis-C infection, status post treatment # hepatic steatosis -follow up outpatient with the manufacture specialist/ PCP # abdominal aortic aneurysm -follow up with the PCP # autoimmune disease -follow up outpatient with the PCP Goals of care, Code status ; discussed with >15 minutes PUD prophylaxis: Pantoprazole DVT prophylaxis: Lovenox Plan discussed with Dr. Collins , nursing staff, Total time spent on patient evaluation, chart review, assessment and plan, discussion discussion >35 minutes Plan discussed with: Patient, Other (RN) My Orders My Orders Orders - MAREN CAMARILLO Procedure Category Date Status Time (Nf) Atenolol PHA 04/18/25 Logged 10:00 (Nf) Dexlansoprazole PHA 04/18/25 Logged (Dexilant) 10:00 (Nf) Olmesartan PHA 04/18/25 Logged Medoxomil (Benicar) 10:00 Alum & Mag PHA 04/17/25 Logged Hydrox-Simethicone 11:45 Visit Coding STANDARD RES Billing Provider: ALCIRA CRYSTAL MD Date of Service if different f: Apr 17, 2025 Common Visit Codes: [id number] INP/OBS CARE(HIGH) MAREN CAMARILLO Apr 17, 2025 12:50
[2025-04-17] MEDS: TAMSULOSIN HYDROCHLORIDE 0.4 MG CAP PO SCH (17:02)
[2025-04-17] MEDS: MAALOX PLUS or MAALOX 30 ML PO PRN (21:14)
[2025-04-18] VITALS (17 sets, daily range): BP systolic 108–133; BP diastolic 66–81; PULSE 72–102; RESP 16–19; TEMP 98–101.1; O2SAT 92–100
[2025-04-18] MEDS: ALBUTEROL SULF 2.5 MG/0.5ML(0.5%) NEB SOLN NEB ONE (01:36)
[2025-04-18 07:09] LABS: Hematocrit 42.9 % (41.0-53.0); Hemoglobin 14.5 g/dL (13.5-17.5); Mean Corpuscular Hemoglobin 27.8 pg (28.0-32.0); Mean Corpuscular Volume 82.0 fL (80.0-100.0); Nucleated Red Blood Cells % 0.1 %
[2025-04-18 07:29] LABS: Chloride 102 mmol/L (98-107); Potassium 4.0 mmol/L (3.5-5.1); Sodium 137 mmol/L (136-145)
[2025-04-18 07:30] LABS: Anion Gap 10 (5-15); Carbon Dioxide 25 mmol/L (20-31)
[2025-04-18] MEDS ORDERED: ALBUTEROL SULF 2.5 MG/0.5ML(0.5%) NEB SOLN NEB PRN ×2 (07:30→08:15)
[2025-04-18] MEDS ORDERED: IPRATROPIUM BROM 0.5 MG/2.5ML INH SOL NEB PRN (07:30)
[2025-04-18 07:31] LABS: Calcium 8.5 mg/dL (8.7-10.4)
[2025-04-18 07:35] LABS: BUN/Creatinine Ratio 11.9 (10.0-20.0); Blood Urea Nitrogen 13 mg/dL (9-23); Glucose 86 mg/dL (74-106)
[2025-04-18 07:36] LABS: Magnesium 2.2 mg/dL (1.6-2.6)
[2025-04-18] MEDS ORDERED: IPRATROPIUM BROM 0.5 MG/2.5ML INH SOL NEB SCH (08:15)
[2025-04-18] MEDS: ATENOLOL 25 MG TAB PO SCH (10:34)
[2025-04-18] MEDS: PANTOPRAZOLE 40 MG/10 ML VIAL INJ IV SCH (10:36)
[2025-04-18] MEDS: ALBUTEROL SULF 2.5 MG/0.5ML(0.5%) NEB SOLN NEB SCH ×2 (11:36→18:43)
[2025-04-18] MEDS: IPRATROPIUM BROM 0.5 MG/2.5ML INH SOL NEB SCH ×2 (11:37→18:43)
[2025-04-18] MEDS: ACETAMINOPHEN 325 MG TAB PO ONE (13:23)
--- NOTE | 2025-04-18 14:54 | DVHPNRES ---
Progress Note Date Seen: Apr 18, 2025 Resident Creating Document: MAREN CAMARILLO RESIDENT Medical Necessity Reason Pt with a Central, PICC or Fol: No Subjective Review of Systems Patient is 64 years old male with a past medical history of asthma, COPD, hepatitis-C treated before, fatty liver/hepatic steatosis, autoimmune disease, BPH, abdominal aortic aneurysm presented to the ED with a the complaint of cough. As per patient he has been having cough for last 3 days with mild sputum production but could not give the exact color of the sputum, some body ache and fever at home. 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 Patient reported that his also having same symptoms. Denies other associated symptoms. Patient reported that approximately 2 years ago he tested positive for Aspergillus antibodies after being exposed to mold of same house. COVID and flu negative, UDS positive for fentanyl, UA negative, CXR no acute pulmonary disease. PMH-asthma, COPD, hepatitis-C treated before, fatty liver/hepatic steatosis, autoimmune disease, abdominal aortic aneurysm, BPH PSH- Annual fissure repair, cholecystectomy Allergy- penicillin, sulfa antibiotic Personal History/ Social History- denies smoking/alcoholism/drug abuse, lives at home ROS Cardiovascular- deny acute chest pain or palpitation Gastrointestinal- denies any rectal bleeding, nausea or vomiting Musculoskeletal-denies acute joint swelling or tenderness or redness Neurological- denies acute dysarthria, dysphagia, change in vision Psychiatry- denies depression or SI or HI Skin- denies acute rash or purpura Patient was seen today at bedside Labs and chart reviewed Patient had low-grade fever last night Blood culture no growth so far Discontinue azithromycin, ordered doxycycline Ordered nebulization Pending sputum culture Objective vital signs Vital Sign Date Time Temp Pulse Resp B/P (MAP) Pulse Ox O2 Delivery O2 Flow Rate FiO2 04/18/25 13:23 98.9 04/18/25 13:00 82 16 117/71 (86) 98 04/18/25 11:36 Room Air* 0 21 Total Intake and Output 04/17/25 04/17/25 04/18/25 15:00 23:00 07:00 Intake Total 50 ml 860 ml 800 ml Balance 50 ml 860 ml 800 ml medications Current Medications Medications Dose Ordered Sig/Lee Route Start Time Stop Time Status Last Admin Dose Admin Sodium Chloride 10 ml Q8HR IV 04/16/25 14:00 04/18/25 13:47 10 ML Ondansetron HCl 4 mg Q4HP PRN IV 04/16/25 12:45 Acetaminophen 650 mg Q6HP PRN PO 04/16/25 12:45 04/18/25 03:49 650 MG Nitroglycerin 0.4 mg Q5MINP PRN SL 04/16/25 12:45 Morphine Sulfate 2 mg Q30M PRN IV 04/16/25 12:45 Albuterol 2.5 mg Q6HPRN PRN NEB 04/16/25 14:30 UNV Tamsulosin HCl 0.4 mg QPM PO 04/17/25 18:00 04/17/25 17:02 0.4 MG Alprazolam 1 mg BID PO 04/16/25 22:00 04/17/25 21:03 1 MG Levothyroxine Sodium 100 mcg QAM@0600 PO 04/17/25 06:00 04/18/25 06:14 100 MCG Levothyroxine Sodium 25 mcg QAM@0600 PO 04/17/25 06:00 04/18/25 06:15 25 MCG Atenolol 50 mg DAILY PO 04/18/25 10:00 Patient Own Medication 1 tab DAILY PO 04/18/25 10:00 Al Hydrox/Mg Hydrox/Simethicone 15 ml Q8HP PRN PO 04/17/25 11:45 04/17/25 21:14 15 ML Ceftriaxone Sodium 50 ml @ 100 mls/hr DAILY@09 IV 04/18/25 09:00 04/18/25 09:18 100 MLS/HR Albuterol 2.5 mg Q6HPRN PRN NEB 04/18/25 08:15 Cancel Ipratropium [place] 0.5 mg Q6HR NEB 04/18/25 08:15 Cancel Pantoprazole Sodium 40 mg DAILY IV 04/18/25 10:00 04/18/25 10:36 40 MG Guaifenesin 200 mg Q6HP PRN PO 04/18/25 10:30 Albuterol 2.5 mg Q6HWA NEB 04/18/25 18:00 Ipratropium [place] 0.5 mg Q6HWA NEB 04/18/25 18:00 Examination General examination- awake, alert, oriented HEENT- PEERLA, no acute nasal discharge Cardiovascular- S1-S2 audible, rate and rhythm regular, no murmur Respiratory- CTAB, no wheeze or rhonchi Gastrointestinal-nontender, bowel sound+. Nondistended Musculoskeletal-no acute joint swelling or tenderness or redness Lower extremity- no leg edema Neurological- cranial nerves intact, no acute dysarthria or dysphagia Psychiatry- denies depression or SI or HI Skin- no acute rash or purpura laboratory and microbiology Laboratory Tests 04/18/25 06:15 Test 04/18/25 06:15 Range/Units Serum Glucose 86 # 74-106 mg/dL Microbiology Date/Time Source Procedure Growth Status 04/17/25 13:37 Blood Blood Culture - Preliminary NO GROWTH AFTER 24 HOURS OF INCUBATION. Resulted Problem List/Assessment/Plan Problem List/Assessment/Plan Assessment and plan # suspected sepsis likely due to pneumonia Gram-positive versus Gram negative # suspected pneumonia Gram-positive versus Gram-negative - blood culture no growth so far Discontinued azithromycin -pending respiratory culture -continue IV antibiotic ceftriaxone and doxycycline -continue IV fluid as scribed -monitor vital -nebulization as prescribed # COPD/asthma -continue nebulization as prescribed # hypothyroidism -resumed home medication levothyroxine # BPH -resumed home medication Flomax # history of hepatitis-C infection, status post treatment # hepatic steatosis -follow up outpatient with the coil winder hand/ PCP # abdominal aortic aneurysm -follow up with the PCP # autoimmune disease -follow up outpatient with the PCP Goals of care, Code status ; discussed with >15 minutes PUD prophylaxis: Pantoprazole DVT prophylaxis: Lovenox Plan discussed with Dr. Collins , nursing staff, Total time spent on patient evaluation, chart review, assessment and plan, discussion discussion >35 minutes Plan discussed with: Patient, Other (RN) My Orders My Orders Orders - MAREN CAMARILLO RESIDENT Procedure Category Date Status Time Mrsa Screen JEFRY 04/18/25 Logged 07:29 Ceftriaxone 1gm/50ml PHA 04/18/25 In Process (Rocephin) 09:00 Pantoprazole PHA 04/18/25 In Process (Protonix) 10:00 Albuterol Medneb PHA 04/18/25 In Process (Ventolin Medneb) 18:00 Ipratropium Medneb PHA 04/18/25 In Process (Atrovent Medneb) 18:00 Visit Coding STANDARD RES Billing Provider: ALCIRA CRYSTAL MD Date of Service if different f: Apr 18, 2025 Common Visit Codes: [id number] INP/OBS CARE(HIGH) MAREN CAMARILLO RESIDENT Apr 18, 2025 14:54
[2025-04-18] MEDS: DOXYCYCLINE 100MG/100ML 100 ML IV ONE (16:09)
[2025-04-19] VITALS (8 sets, daily range): BP systolic 99–135; BP diastolic 72–77; PULSE 60–80; RESP 16–20; TEMP 37.6; O2SAT 94–98
[2025-04-19] MEDS: DOXYCYCLINE 100MG/100ML 100 ML IV SCH (05:39)
[2025-04-19 07:21] LABS: Anion Gap 10 (5-15); Carbon Dioxide 24 mmol/L (20-31); Chloride 106 mmol/L (98-107); Potassium 4.0 mmol/L (3.5-5.1); Sodium 140 mmol/L (136-145)
[2025-04-19 07:22] LABS: Calcium 8.7 mg/dL (8.7-10.4)
[2025-04-19 07:27] LABS: BUN/Creatinine Ratio 10.9 (10.0-20.0); Blood Urea Nitrogen 12 mg/dL (9-23); Glucose 95 mg/dL (74-106); Magnesium 2.4 mg/dL (1.6-2.6)
[2025-04-19] MEDS ORDERED: DOXY100C79 PO (14:03)
[2025-04-19] MEDS ORDERED: ZINC220C10 PO (14:03)
--- NOTE | 2025-04-19 15:49 | DVHDSRES ---
Discharge Summary Date of Admission Resident Creating Document: MAREN CAMARILLO RESIDENT Apr 16, 2025 at 12:34 Date of Discharge: Apr 19, 2025 Admitting Diagnosis # suspected sepsis likely due to pneumonia Gram-positive versus Gram negative Acute hypoxic respiratory failure likely due to pneumonia Gram-positive versus Gram-negative Labs/Diagnostic Data: Laboratory Results Test 04/19/25 06:30 04/18/25 06:15 04/17/25 03:35 04/16/25 13:18 Sodium Level 140 mmol/L (136-145) Potassium Level 4.0 mmol/L (3.5-5.1) Chloride Level 106 mmol/L (98-107) Carbon Dioxide Level 24 mmol/L (20-31) Anion Gap 10 (5-15) Blood Urea Nitrogen 12 mg/dL (9-23) Creatinine 1.10 mg/dL (0.700-1.30) Glomerular Filtration Rate Calc 74 mL/min (>90) BUN/Creatinine Ratio 10.9 (10.0-20.0) Serum Glucose 95 mg/dL (74-106) Calcium Level 8.7 mg/dL (8.7-10.4) Magnesium Level 2.4 mg/dL (1.6-2.6) White Blood Count 4.0 10^3/uL (4.4-10.8) Red Blood Count 5.23 10^6/uL (4.5-5.90) Hemoglobin 14.5 g/dL (13.5-17.5) Hematocrit 42.9 % (41.0-53.0) Mean Corpuscular Volume 82.0 fL (80.0-100.0) Mean Corpuscular Hemoglobin 27.8 pg (28.0-32.0) Mean Corpuscular Hemoglobin Concent 33.9 g/dL (32.0-36.0) Red Cell Distribution Width 16.7 % (11.8-14.3) Platelet Count 183 10^3/uL (140-450) Mean Platelet Volume 7.0 fL (6.9-10.8) Neutrophils (%) (Auto) 68.2 % (37.0-80.0) Lymphocytes (%) (Auto) 13.4 % (10.0-50.0) Monocytes (%) (Auto) 17.3 % (0.0-12.0) Eosinophils (%) (Auto) 0.5 % (0.0-7.0) Basophils (%) (Auto) 0.6 % (0.0-2.0) Neutrophils # (Auto) 2.7 10 ^3/uL (1.6-8.6) Lymphocytes # (Auto) 0.5 10 ^3/uL (0.4-5.4) Monocytes # (Auto) 0.7 10 ^3/uL (0-1.3) Eosinophils # (Auto) 0 10 ^3/uL (0-0.8) Basophils # (Auto) 0 10 ^3/uL (0-0.2) Nucleated Red Blood Cells 0.1 % B-Type Natriuretic Peptide 12.72 pg/mL (0-100) Hemoglobin A1c 5.7 % A1C (<5.7) Total Bilirubin 0.3 mg/dL (0.2-1.0) Aspartate Amino Transferase (AST) 17 U/L (13-40) Alanine Aminotransferase (ALT) 27 U/L (7-40) Alkaline Phosphatase 94 U/L (46-116) C-Reactive Protein High Sensitivity 2.67 mg/dL (<1.0) Total Protein 6.7 g/dL (5.7-8.2) Albumin 4.0 g/dL (3.2-4.8) Vitamin B12 Level 391 pg/mL (211-911) Vitamin D 25-Hydroxy 38.6 ng/mL (30.0-100) Folic Acid 7.33 ng/mL (>5.38) Thyroid Stimulating Hormone (TSH) 0.98 uIU/mL (0.55-4.78) Influenza Type A Antigen Negative (Negative) Influenza Type B Antigen Negative (Negative) SARS-CoV-2 Antigen (Rapid) Negative (NEGATIVE) Test 04/16/25 10:24 04/16/25 10:13 Urine Color Colorless (Yellow) Urine Clarity Clear (Clear) Urine pH 5.5 (5.0-9.0) Urine Specific [place] 1.005 (1.001-1.035) Urine Protein Negative (Negative) Urine Ketones Negative (Negative) Urine Blood Negative /uL (Negative) Urine Nitrite Negative (Negative) Urine Bilirubin Negative (Negative) Urine Urobilinogen Normal mg/dL (Negative) Urine Leukocyte Esterase Negative /uL (Negative) Urine RBC <1 /hpf (0 - 3) Urine Microscopic WBC < 1 /HPF (0-3) Urine Squamous Epithelial Cells None seen /hpf (<5) Urine Bacteria None seen /hpf (None Seen) Urine Glucose Normal mg/dL (Normal) Urine Opiates Screen Neg (NEGATIVE) Urine Fentanyl Screen Pos (NEGATIVE) Urine Barbiturates Screen Neg (NEGATIVE) Urine Phencyclidine Screen Neg (NEGATIVE) Urine Amphetamines Screen Neg (NEGATIVE) Urine Benzodiazepines Screen Neg (NEGATIVE) Urine Cocaine Screen Neg (NEGATIVE) Urine Cannabinoids Screen Neg (NEGATIVE) D-Dimer, Quantitative 0.42 mg/L FEU (0.0-0.49) Troponin I High Sensitivity < 3 ng/L (</=54) Other Laboratory Tests 04/19/25 06:30 04/18/25 06:15 Brief Hx & Hospital Course: Patient is 64 years old male with a past medical history of asthma, COPD, hepatitis-C treated before, fatty liver/hepatic steatosis, autoimmune disease, BPH, abdominal aortic aneurysm presented to the ED with a the complaint of cough. As per patient he has been having cough for last 3 days with mild sputum production but could not give the exact color of the sputum, some body ache and fever at home. 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 Patient reported that his also having same symptoms. Denies other associated symptoms. Patient reported that approximately 2 years ago he tested positive for Aspergillus antibodies after being exposed to mold of same house. COVID and flu negative, UDS positive for fentanyl, UA negative, CXR no acute pulmonary disease. Brief hospital course-during hospital course patient was treated with the IV antibiotic ceftriaxone and azithromycin, later on azithromycin was discontinued and put on doxycycline. Blood culture negative, sputum culture negative. Patient's symptoms improved. Patient is being discharged with the doxycycline. Patient was advised to follow up at [place] clinic/PCP/construction executive. Patient was hemodynamically stable on discharge. All questions answered. General examination- awake, alert, oriented HEENT- PEERLA, no acute nasal discharge Cardiovascular- S1-S2 audible, rate and rhythm regular, no murmur Respiratory- CTAB, no wheeze or rhonchi Gastrointestinal-nontender, bowel sound+. Nondistended Musculoskeletal-no acute joint swelling or tenderness or redness Lower extremity- no leg edema Neurological- cranial nerves intact, no acute dysarthria or dysphagia Psychiatry- denies depression or SI or HI Skin- no acute rash or purpura Assessment # suspected sepsis likely due to pneumonia Gram-positive versus Gram negative # suspected pneumonia Gram-positive versus Gram-negative # COPD/asthma # hypothyroidism # BPH # history of hepatitis-C infection, status post treatment # hepatic steatosis # abdominal aortic aneurysm # autoimmune disease Plan Doxycycline as prescribed Follow up with the clinic PCP 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 Collins Operations or Procedures [place] [id number] Ph: [phone] DIAGNOSTIC IMAGING Diagnostic Imaging Report : [id number] Signed PATIENT: JUAN HALL ACCT: [id number] UNIT: [id number] : 1960 LOC: ER ROOM / BED: / AGE / SEX: 64 / M ADM STATUS: REG ER SERVICE 0 ORDERING PHYSICIAN: PAZ TAYLOR MD PROCEDURE(s): CXRP - CHEST PORTABLE REASON: cough ORDER NUMBER(s): [id number], ACCESSION NUMBER(s): [id number] CHEST RADIOGRAPH INDICATION: cough TECHNIQUE: Single frontal view of the chest was obtained. COMPARISON: XY CHEST PORTABLE on DOS: 03/17/25, XY CHEST XRAY 1 VIEW on DOS: 10/18/24 FINDINGS: No focal consolidation. No significant pleural effusion. No pneumothorax. Stable cardiomediastinal silhouette. IMPRESSION: No acute pulmonary process. ATED BY: ABBIE WELLER MD DICTATED DATE/TIME: 04/16/25 1021 SIGNED BY: ABBIE WELLER MD SIGNED DATE/TIME: 04/16/25 1021 CC: Condition at Discharge: Stable Final Diagnosis/Problems List # sepsis likely due to pneumonia Gram-positive versus Gram negative # pneumonia Gram-positive versus Gram-negative # COPD/asthma overlap syndrome # suspected upper respiratory viral infection # hypothyroidism # BPH # history of hepatitis-C infection, status post treatment # hepatic steatosis # abdominal aortic aneurysm, chronic, stable # autoimmune disease Discharge Disposition: Home Discharge Instruct/Medications Diet: Cardiac 2g Na,low cholest Activity: No Restrictions, As Tolerated Follow Up/Referral: [place] [facility] PCP CHIEF DEVELOPMENT OFFICER Medications: PER EMR Scheduled Acyclovir (Acyclovir), 400 MG PO DAILY, (Reported) Alprazolam (Xanax), 1 TAB PO TID, (Reported) Amitriptyline Hcl (Amitriptyline Hcl), 10 MG PO HS, (Reported) Atenolol (Atenolol), 50 MG PO DAILY, (Reported) Dexlansoprazole (Dexilant), 60 MG PO DAILY, (Reported) Doxycycline (Monohydrate) (Doxycycline), 100 MG PO BID Eeatnndwemi-Bhfidvuwhkcx-Ukivz (Trelegy Ellipta 100-62.5-25 Mcg/INH), 1 AER IN DAILY, (Reported) Hydroxychloroquine Sulfate (Hydroxychloroquine Sulfat), 200 MG PO DAILY, (Reported) Levofloxacin Hemihydrate (Levaquin 500 Mg), 500 MG PO DAILY Levothyroxine Sodium (Levothyroxine Sodium), 1 TAB PO DAILY, (Reported) Olmesartan Medoxomil (Benicar), 1 TAB PO DAILY, (Reported) Pilocarpine Hcl (Salagen), 5 MG PO BID, (Reported) Prednisone (Prednisone), 20 MG PO QAM Tamsulosin Hcl (Flomax), 1 CAP PO DAILY, (Reported) Scheduled PRN Albuterol Sulfate (Proair Digihaler), 108 MCG IN BIDP PRN for FOR COUGH, (Reported) Carisoprodol (Soma), 250 MG PO Q12HP PRN Hydrocodone-Acetaminophen (Hydrocodone Bitartrate/AC 10-325 mg), 1 TAB PO TID PRN for PAIN SCALE 7 THRU 10, (Reported) Hydrocodone-Acetaminophen (Hydrocodone Bitartrate/AC 5-325 mg), 1 TAB PO Q6HP PRN Sucralfate (Carafate), 1 GM OR Q12HP PRN Zinc Sulfate (Zinc), 220 MG PO DAILY PRN Discharge Statement: "Patient was advised to return to the ER or call 911 if any headaches, dizziness, shortness of breath, chest pain, abdominal pain, bleeding, fevers, or worsening of medical condition. Patient was counseled about treatment plan, medications, possible side effects, patientverbalized understanding. All questions were answered to the best of my ability. This discharge took greater then 30 minutes in planning, reviewing documentation, counseling the patient, and discussing with other team members." ASSESSMENT ASSESSMENT Assessment # suspected sepsis likely due to pneumonia Gram-positive versus Gram negative # suspected pneumonia Gram-positive versus Gram-negative Visit Coding STANDARD RES Billing Provider: ALCIRA CRYSTAL MD Date of Service if different f: Apr 19, 2025 Common Visit Codes: 62993-[id number]/OBS DISCH DAY >30min MAREN CAMARILLO RESIDENT Apr 19, 2025 15:49 ALCIRA CRYSTAL MD Apr 20, 2025 09:28
== END 2025-04-19 15:40 | disposition home or self-care (01) | DRG 871 ==
LOC: ER 09:20 → OVERFLOW 12:34 → EAST 04-17 08:43
PROVIDERS: ADMIT Student in an Organized Health Care Education/Training Program; ATTEND Student in an Organized Health Care Education/Training Program
DX: A41.50 Gram-negative sepsis, unspecified (principal); J15.69 Pneumonia due to other Gram-negative bacteria; J15.9 Unspecified bacterial pneumonia; J44.0 Chronic obstructive pulmonary disease with (acute) lower respiratory infection; E03.9 Hypothyroidism, unspecified; I71.9 Aortic aneurysm of unspecified site, without rupture; I10 Essential (primary) hypertension; J20.9 Acute bronchitis, unspecified; Z20.822 Contact with and (suspected) exposure to COVID-19; F41.9 Anxiety disorder, unspecified; N40.0 Benign prostatic hyperplasia without lower urinary tract symptoms; Z90.49 Acquired absence of other specified parts of digestive tract; Z83.3 Family history of diabetes mellitus; Z82.49 Family history of ischemic heart disease and other diseases of the circulatory system; Z80.9 Family history of malignant neoplasm, unspecified; Z82.3 Family history of stroke; Z88.0 Allergy status to penicillin; Z88.2 Allergy status to sulfonamides
CPT/HCPCS: 36415; 71045; 80048; 80053; 80307; 81001; 82306; 82607; 82746; 83036; 83735; 83880; 84443; 84484; 85025; 85379; 86141; 87040; 87070; 87081; 87205; 87426; 87804; 94640; 99291; 99292; G0378; J1956; J2470